=== PATIENT | female | born 1940 | race Caucasian/White ===

== ENCOUNTER 2019-10-23 08:55 | Day surgery (SDC) | payer OTHER ==
[2019-10-19 09:19] LABS: Absolute Lymphocytes (CBC) 0.9 K/uL (0.7-4.9); Basophils % 1.1 % (0-1.3); Hematocrit 39.8 % (36.0-45.0); Lymphocytes % 24.2 % (15.3-44.8); MPV 7.9 fL (7.6-11.3); RBC Red Blood Cell Count 4.42 M/uL (3.86-4.86)
--- NOTE | 2019-10-19 09:39 | RAD REPORT ---
EXAM DESCRIPTION: Julieta Benson And Berto (2 Views)10/19/2019 9:24 am CLINICAL HISTORY: Preop for hip surgery COMPARISON: 2016 FINDINGS: Lungs are mildly hyperaerated The lungs appear clear of acute infiltrate. The heart is normal size The aorta is tortuous/ectatic IMPRESSION: No acute abnormalities displayed
[2019-10-23] MEDS ORDERED: CEFAZOLIN/SWI 1gm 1 GM/10 ML SYR ONE (09:48)
[2019-10-23] MEDS ORDERED: NA CHLORIDE 0.9% 1,000 ML ONE (09:48)
--- OUTSIDE RECORDS SUMMARY | 2019-10-23 10:06 | XMS REPORT | Continuity of Care Document ---
:1940 Author Organization [facility] t Address [facility] Seth Moura [address] [place] [id number] Care Team Providers Name Role Phone Unavailable Unavailable Unavailable Problems Condition Condition Condition Status Onset Resolution Last Treating Co mments Source Name Details Category Date Date Treatment Clinician Date Nicotine Nicotine Problem [facility] Degenerati Degenerati Problem Active [facility] ve joint [facility] disease disease [facility] Allergic Allergic Problem Active [facility] rhinitis, rhinitis, [facility] - seasonal seasonal Memori a l [facility] ent Clin[facility] Hyperlipid Hyperlipid Problem Active [facility] emia emia [facility] Varicose Varicose Problem Active [facility] veins [facility] Insomnia Insomnia Problem [facility] Degenerati Degenerati Problem Active [facility] on of on of [facility] - lumbar or lumbar or Jose soren lumbosacra lumbosacra l l l Outpati interverte interverte en t bral disc bral disc Clin ics Chronic Chronic Problem Active [facility] back pain back pain [facility] - [facility] COPD COPD Problem Active [facility] (chronic (chronic [facility] - obstructiv obstructiv Me moria e e l pulmonary pulmonary Outp ati disease) disease) ent Clinics Hypothyroi Hypothyroi Problem Active [facility] dism dism [facility] Rosacea Rosacea Problem Active [facility] Diabetes Diabetes Problem Active [facility] type 2, type 2, [facility] - controlled controlled Me moria l Outpati ent Clinics Fibromyalg Fibromyalg Problem Active [facility] ia ia [facility] Renal Renal Problem Active [facility] insufficie insufficie Barbara kes - ncy ncy Memoria syndrome syndrome l Outpati ent Clinics Unspecifie Unspecifie Problem Active [facility] d hearing d hearing Luke s - loss loss Memoria l [facility] ent Clinics Spinal Spinal Problem Active [facility] stenosis, stenosis, [facility] Osteoarthr Osteoarthr Problem Active [facility] itis of itis of [facility] - multiple multiple Memori a joints joints l [facility] ent Clinics H/O: CVA H/O: CVA Problem Active [facility] (cerebrova (cerebrova Barbara kes - scular scular Memoria accident) accident) l [facility] Postsurgic Postsurgic Problem Active [facility] al al [facility] - menopause menopause Jose soren l [facility] ent Clinics Urinary Urinary Problem Active [facility] incontinen incontinen Barbara kes - ce, ce, Memoria unspecifie unspecifie l d type d type [facility] Clin[facility] Mixed Mixed Problem Active [facility] incontinen incontinen Babrara kes - ce urge ce urge Memoria and stress and stress l [facility] ent Clinics Type 2 Type [address] [facility] diabetes diabetes [facility] - mellitus mellitus Memori a with other with other l diabetic diabetic Outpat i kidney kidney ent complicati complicati Cl inics on on Stage 3 Stage [address] [facility] chronic chronic [facility] - kidney kidney Memoria disease disease l [facility] ent Clinics Type 2 Type [address] [facility] diabetes diabetes [facility] - mellitus mellitus Memori a with with l diabetic diabetic Outpat i chronic chronic ent kidney kidney Clinics disease disease Allergic Allergic Problem Active [facility] rhinitis, rhinitis, Luke s - unspecifie unspecifie Me moria d d l [facility] ent Clinics Non-season Non-season Problem Active [facility] al al [facility] - allergic allergic Memori a rhinitis, rhinitis, l unspecifie unspecifie Ou tpati d trigger d trigger ent Clinics Allergies, Adverse Reactions, Alerts Allergy Allergy Status Severity Reaction(s) Onset Inactive Treating Comm ents Source Name Type Date Date Clinician sulfa Adverse Active Info Not [facility] Reaction Available [facility] - [facility]oria [facility] codeine Adverse Active Info Not [facility] Reaction Available kes - Memoria [facility] ent [facility] Aspir-81 Adverse Active Info Not [facility] Reaction Available [facility] ent Clinics Medications Ordered Filled Start Stop Current Ordering Indication Dosage Frequency Signature Comments Components Source Medication Medication Date Date Medication? Clinician (SIG) Name Name Moris Subramanian 2017-03 Yes Arian as [facility] Smart View Smart View 1-23 [facility] directed [facility] - test strips test strips 00:00: Memoria 00 l [facility] Moris Subramanian Yes Arian as [facility] SmartView SmartView 5-25 [facility] directed [facility] - Control Control 00:00: Memoria 00 l [facility] Clinics [facility] Yes Arian 1 tablet [facility] Allergy Allergy [facility] Flonase Flonase Yes Arian [address] [facility] each [facility] - nostril Memoria l [facility] Lyrica Lyrica Yes Arian [address] [facility] Crestor Crestor Yes Arian [address] [facility] Singulair Singulair Yes Arian [address] [facility] [place] in the [facility] - evening Memoria l [facility] Lisinopril Lisinopril Yes Arian [address] [facility] Levothyroxi Levothyroxi Yes Arian [address] [facility] ne Sodium ne Sodium [place] on an Femi es - empty Memoria stomach in l the Outpati morning ent Clinics Breo Breo Yes Arian TAKE [address] [facility] Ellipta Ellipta [place] PUFF BY [facility] - MOUTH Memoria EVERY DAY l [facility] Lisinopril Lisinopril Yes Arian [address] [facility] Aspirin 81 Aspirin 81 Yes Arian [address] [facility] Bactroban Bactroban Yes Arian [address] [facility] Mrain applicatio [facility]ukes - n to Memoria affected l area [facility] ProAir HFA ProAir HFA Yes Arian [address] [facility] needed [facility] - Memoria l [facility] Rosuvastati Rosuvastati Yes Arian TAKE [address] [facility] n Calcium n Calcium [place] TABLET BY [facility] - MOUTH Memoria EVERY DAY l [facility]ics Zetonna Zetonna Yes Arian [address] [facility] each [facility] - nostril Memoria l [facility] Accu-Chek Accu-Chek Yes Arian TEST [address] FastClix FastClix [place] TIMES A Femi es - Lancets Lancets DAY Memoria l [facility] Ventolin Ventolin Yes Arian TAKE [address] [facility] [facility] HFA HFA [place] PUFFS BY [facility] - MOUTH 4 Memoria TIMES A l DAY 90 [facility]ics Mupirocin Mupirocin Yes Arian APPLY TO [facility] Calcium Calcium [place] AFFECTED Luke s - AREA 3 Memoria TIMES A l DAY [facility] Metformin Metformin Yes Arian take [address] [facility] HCl HCl [facility] l [facility] Tramadol Tramadol Yes Arian [address] HCl HCl [place] as needed [facility] ent Clinics Procedures This patient has no known procedures. Encounters Start End Encounter Admission Attending Care Care Encounter Source Date/Time Date/Time Type Type Clinicians Facility Department ID 2019-10-08 2019-10-08 [facility] [id number] [facility] 17:59:00 17:59:00 t [facility] Outpati ent Clinics 2019-10-08 2019-10-08 [facility] [id number] [facility] 14[facility]15:00 14:15:00 t [facility] Medicine Outpati ent Clinics 2019-08-31 2019-08-31 [facility] [id number] [facility] 13:00:00 13:00:00 t Specialty/U Barbara kes - Specialty rology [facility] a /Urology Clinic l Clinic Outpati ent Clinics 2019-07-09 2019-07-09 [facility] [id number] 14:15:00 14:15:00 t [facility] Outpati ent Clinics 2019-07-02 2019-07-02 [facility] [id number] 13:09:00 13:09:00 t [facility] Outpati ent Clinics 2019-06-29 2019-06-29 [facility] [id number] [address] 09:32:00 09:32:00 t [facility] Medicine Outpati ent Clinics 2019-06-13 2019-06-13 [facility] [id number] [address] 09:02:00 09:02:00 t [facility] Medicine Outpati ent Clinics 2019-05-17 2019-05-17 [facility] [id number] [address] 13:15:00 13:15:00 t [facility] Medicine Outpati ent Clinics 2019-04-06 2019-04-06 [facility] [id number] [facility] 10:30:00 10:30:00 t [facility] Medicine Outpati ent Clinics 2019-03-30 2019-03-30 [facility] [id number] 08:13:00 08:13:00 t [facility] Medicine Outpati ent Clinics 2019-03-01 2019-03-01 [facility] [id number] [facility] 13:00:00 13:00:00 t Specialty/U Barbara kes - Specialty rology Memori a /Urology Clinic l Clinic Outpati ent Clinics 2019-01-03 2019-01-03 [facility] [id number] [facility] 14:15:00 14:15:00 t [facility] Medicine Outpati ent Clinics 2018-11-28 2018-11-28 [facility] [id number] [address] 14:30:00 14:30:00 t Specialty/U Barbara kes - Specialty rology Memori a /Urology Clinic l Clinic Outpati ent Clinics 2018-11-22 2018-11-22 [facility] [id number] 12:23:00 12:23:00 t [employer] Medicine Outpati ent Clinics 2018-11-09 2018-11-09 [facility] [id number] [facility] 14:21:00 14:21:00 t Specialty/U Barbara kes - Specialty rology Memori a /Urology Clinic l Clinic Outpati ent Clinics 2018-10-13 2018-10-13 [facility] [id number] 13:30:00 13:30:00 t Specialty/U Barbara kes - Specialty rology Memori a /Urology Clinic l Clinic Outpati ent Clinics 2018-10-03 2018-10-03 [facility] [id number] 14:00:00 14:00:00 t [employer] [facility] Outpati ent Clinics 2018-09-08 2018-09-08 [facility] [id number] 14:45:00 14:45:00 t Specialty/U Barbara kes - Specialty rology Memori a /Urology Clinic l Clinic Outpati ent Clinics 2018-09-04 2018-09-04 [facility] [id number] 15:07:00 15:07:00 t [employer] [facility] Outpati ent Clinics 2018-09-04 2018-09-04 [facility] [id number] [address] 09:45:00 09:45:00 t Specialty/U Barbara kes - Specialty rology Memori a /Urology Clinic l Clinic Outpati ent Clinics 2018-07-13 2018-07-13 [facility] [id number] [facility] 13:45:00 13:45:00 t Specialty/U Barbara kes - Specialty rology Memori a /Urology Clinic l Clinic Outpati ent Clinics 2018-07-04 2018-07-04 [facility] [id number] [facility] 13:45:00 13:45:00 t [employer] - Drive [facility] Medicine Outpati ent Clinics 2018-04-06 2018-04-06 [facility] [id number] 13:45:00 13:45:00 t [employer] [facility] Outpati ent Clinics 2018-01-04 2018-01-04 [facility] [id number] [facility] 16:14:00 16:14:00 t [employer] [facility] Outpati ent Clinics 2018-01-04 2018-01-04 [facility] [id number] 14:30:00 14:30:00 t [employer] [facility] Medicine Outpati ent Clinics 2017-09-12 2017-09-12 [facility] [id number] 14:15:00 14:15:00 t [employer] [facility] Medicine Outpati ent Clinics 2017-08-12 2017-08-12 [facility] [id number] 16:01:00 16:01:00 t [employer] [facility] Medicine Outpati ent Clinics 2017-07-28 2017-07-28 [facility] [id number] 10:26:00 10:26:00 t [employer] [facility] Medicine Outpati ent Clinics 2017-06-15 2017-06-15 [facility] [id number] 13:15:00 13:15:00 t [facility] Medicine Outpati ent Clinics Results This patient has no known results.
--- OUTSIDE RECORDS SUMMARY | 2019-10-23 10:06 | XMS REPORT ---
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 Active Problem H/O: CVA (cerebrovascular accident) Z86.73 Active Problem Allergic rhinitis, seasonal J30.2 Active Problem Renal insufficiency syndrome N28.9 Active Problem Unspecified hearing loss H91.90 Act gavin Problem Varicose veins I86.8 Active Problem 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 Activ e Problem Osteoarthritis of multiple joints M15.9 Active Problem Nicotine dependence F17.200 Active Problem Non-seasonal allergic rhinitis, J30.89 Active unspecified trigger Problem Type 2 diabetes mellitus with E11.22 Active diabetic chronic kidney disease Problem 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 Ac tive lumbosacral intervertebral disc Problem Chronic back pain M54.9 Active Problem Allergic rhinitis, unspecified J30.9 Active Problem Degenerative joint disease M19.90 A ctive Problem Mixed incontinence urge and stress N39.46 Active Problem Urinary incontinence, unspecified R32 Active type Problem Stage 3 chronic kidney disease N18.3 Active Problem Type 2 diabetes mellitus with other E11.29 Active diabetic kidney complication Problem Fibromyalgia M79.7 Active Problem Insomnia G47.00 Active Problem Diabetes type 2, controlled E11.9 Active Problem Rosacea L71.9 Active Problem Hyperlipidemia E78.5 Active Problem Spinal stenosis, other region M48.00 Active Problem Hypothyroidism E03.9 Active Problem COPD (chronic obstructive pulmonary J44.9 Active disease) Medications Medication Code Code Instructions Start End Status Dosage System Date Date ProAir HFA [facility] 45346081167 108 (90 Base) Active 2 p uffs as MCG/ACT needed Inhalation every 6 hrs Zetonna [facility] 17095757873 37 MCG/ACT Active 1 puff in Nasally Once a each nost ril day Levothyroxine ND 88717432543 50 MCG Orally Active 1 tablet on Sodium Once a day an empty stomach in the morning Flonase ND 13210685676 50 MCG/ACT Active 1 spray i n Nasally Once a each nost ril day Accu-Chek Smart [facility] 20110737429 strip Feb 10, Active as d irected View test strips subcutaneous 2018 twice daily Ventolin HFA [facility] 60582633741 108 (90 Base) Active T RADHA 2 PUFFS MCG/ACT BY MOUTH 4 TIMES A DAY 90 Lyrica ND 87465062310 75 MG Orally Active 1 capsu le Twice a day Crestor ND 80904167824 10 MG Orally Active 1 table t Once a day Lyrica ND 21308338193 75 MG Orally Active 1 capsu le Twice a day Mupirocin [facility] 65040392498 2 % Active APPLY TO Calcium AFFECTED AREA 3 TIMES A DAY Aspirin 81 ND 16814864349 81 MG Orally Active 1 ta blet Once a day Breo Ellipta ND 96502138491 100-25 MCG/INH Active TAKE 1 PUFF BY MOUTH EVERY DAY Lisinopril ND 35350065036 2.5 MG Orally Active 1 t ablet Once a day Accu-Chek [facility] 21223911886 - finger stick Active LING T 3 TIMES FastClix Lancets test three time A DAY a day Bactroban [facility] 04217616415 2 % Externally Active 1 a pplication Three times a to affecte d day area Lisinopril ND 31420620037 2.5 MG Orally Active 1 t ablet Once a day Zyrtec Allergy ND 42183597476 10 MG Orally Active 1 tablet Once a day Rosuvastatin ND 84290796939 10 MG Active TAKE 1 TABLET Calcium BY MOUTH EVERY DAY Metformin HCl ND 29995332421 500 MG Active TAKE 1 TABLET BY MOUTH EVERY DAY Accu-Chek [facility] 02915123366 - In Vitro August 12, Active as dire cted SmartView 2018 Control Singulair ND 88944447995 10 MG Orally Active 1 tab let in Once a day the evening Levothyroxine ND 52146014918 50 MCG Active TAKE 1 TABLET Sodium BY MOUTH EVERY DAY ON EMPTY STOMACH IN THE MORNING Results No Known Results Summary Purpose eClinicalWorks Submission
--- OUTSIDE RECORDS SUMMARY | 2019-10-23 10:06 | XMS REPORT ---
:1940 Author Organization eClinicalWorks Care Team Providers Name Role Phone Tomas Arian Provider Role Unavailable Allergies, Adverse Reactions, Alerts Substance Reaction Event Type sulfa Info Not Available Drug Allergy codeine Info Not Available Drug Allergy Aspir-81 Info Not Available Drug Allergy Problems Problem Type Condition Code Onset Dates Condition Statu s Assessment Chronic back pain M54.9 Active Assessment Insomnia G47.00 Active Assessment COPD (chronic obstructive pulmonary J44.9 Active disease) Assessment Stage 3 chronic kidney disease N18.3 Active Assessment History of fall Z91.81 Active Assessment Proteinuria, unspecified R80.9 Act gavin Assessment Left hip pain M25.552 Active Assessment Hypothyroidism E03.9 Active Assessment 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 Ac tive lumbosacral intervertebral disc Assessment Type 2 diabetes mellitus with other E11.29 Active diabetic kidney complication Problem H/O: CVA (cerebrovascular accident) Z86.73 Active [...] disc Problem Chronic back pain M54.9 Active Assessment Spinal stenosis, other region M48.00 Active Problem Allergic rhinitis, unspecified J30.9 Active Problem Degenerative joint disease M19.90 A ctive Assessment Allergic rhinitis, seasonal J30.2 Active Problem Mixed incontinence urge and stress N39.46 Active Assessment H/O: CVA (cerebrovascular accident) Z86.73 Active Problem Urinary incontinence, unspecified R32 Active type Assessment Fibromyalgia M79.7 Active Problem Stage 3 chronic kidney disease N18.3 Active Assessment 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 Activ e Problem Type 2 diabetes mellitus with other E11.29 Active diabetic kidney complication Assessment Degenerative joint disease M19.90 A ctive Problem Fibromyalgia M79.7 Active Assessment Hyperlipidemia E78.5 Active Problem Insomnia G47.00 Active Assessment Urinary incontinence, unspecified R32 Active type Problem Diabetes type 2, controlled E11.9 Active Assessment Nicotine dependence F17.200 Active Problem Rosacea L71.9 Active Assessment Osteoarthritis of multiple joints M15.9 Active Problem Hyperlipidemia E78.5 Active Assessment Varicose veins I86.8 Active Problem Spinal stenosis, other region M48.00 Active Problem Hypothyroidism E03.9 Active Problem COPD (chronic obstructive pulmonary J44.9 Active disease) Medications Medication Code Code Instructions Start End Status Dosage System Date Date Zyrtec Allergy [facility] 41104650185 10 MG Orally Active 1 tablet Once a day Breo Ellipta [facility] 09672349757 100-25 MCG/INH Active TAKE 1 PUFF BY MOUTH EVERY DAY ProAir HFA [facility] 24516178963 108 (90 Base) Active 2 p uffs as MCG/ACT needed Inhalation every 6 hrs Bactroban ND 47405591464 2 % Externally Active 1 a pplication Three times a to affecte d day area Levothyroxine ND 67355237972 50 MCG Orally Active 1 tablet on Sodium Once a day an empty stomach in the morning Lyrica ND 03620663337 75 MG Orally Active 1 capsu le Twice a day Lisinopril ND 43997460548 2.5 MG Orally Active 1 t ablet Once a day Zetonna [facility] 82678756547 37 MCG/ACT Active 1 puff in Nasally Once a each nost Accu-Chek [facility] 81493887550 - In Vitro August 12, Active as dire cted SmartView 2018 Control Lisinopril ND 26459058007 2.5 MG Orally Active 1 t ablet Once a day Accu-Chek Smart [facility] 34973165725 strip Feb 10, Active as d irected View test strips subcutaneous 2018 twice daily Breo Ellipta [facility] 01075084063 100-25 MCG/INH Active TAKE 1 PUFF BY MOUTH EVERY DAY Mupirocin ND 91359584663 2 % Active APPLY TO Calcium AFFECTED AREA 3 TIMES A DAY Accu-Chek [facility] 49512305296 - finger stick Active LING T 3 TIMES FastClix Lancets test three time A DAY a day Rosuvastatin [facility] 45957346374 10 MG Active TAKE 1 TABLET Calcium BY MOUTH EVERY DAY Flonase [facility] 18885868379 50 MCG/ACT Active 1 spray i n Nasally Once a each nost ril day Crestor [facility] 58437888873 10 MG Orally Active 1 table t Once a day Metformin HCl [facility] 95875919542 500 MG po BID Active take 1 tab Tramadol HCl [facility] 40529460327 50 MG Orally Active 1 tablet as ONCE A DAY PRN needed PAIN Aspirin 81 [facility] 47627762802 81 MG Orally Active 1 ta blet Once a day Singulair [facility] 55678742213 10 MG Orally Active 1 tab let in Once a day the evening Lyrica [facility] 73522369339 75 MG Orally Active 1 capsu le Twice a day Ventolin HFA [facility] 03433550029 108 (90 Base) Active T RADHA 2 PUFFS MCG/ACT BY MOUTH 4 TIMES A DAY 90 Results Name Result Date Reference Range Unit Abnormali ty Flag Hip Bilateral With Pelvis Summary Purpose eClinicalWorks Submission
--- OUTSIDE RECORDS SUMMARY | 2019-10-23 10:07 | XMS REPORT ---
:1940 Author Organization eClinicalWorks Care Team Providers Name Role Phone Arian Marin Provider Role Unavailable Allergies No Known Allergies Problems Problem Type Condition Code Onset Dates Condition Statu s Problem H/O: CVA (cerebrovascular accident) Z86.73 Active [...] (chronic obstructive pulmonary J44.9 Active disease) Medications No Known Medications Results No Known Results Summary Purpose eClinicalWorks Submission
[2019-10-23] MEDS ORDERED: MIDAZOLAM HCL 2 MG/2 ML INJ ONE (10:43)
[2019-10-23] MEDS ORDERED: FENTANYL CITR 100 MCG/2 ML ONE (10:44)
[2019-10-23] MEDS ORDERED: propofoL 200 MG/20 ML VIAL IV ONE (10:44)
[2019-10-23] MEDS ORDERED: dexAMETHasone 10 MG/ML VIAL ONE (10:44)
[2019-10-23] MEDS ORDERED: LIDOCAINE 2% MPF 5 ML VIAL ONE (10:44)
[2019-10-23] MEDS ORDERED: KETOROLAC 30 MG/ML INJ ONE (11:20)
[2019-10-23] MEDS ORDERED: MORPHINE 4 MG/ML SYR ONE (12:04)
[2019-10-23] MEDS ORDERED: HYDROCODONE/APAP 7.5/325 MG TAB ONE (12:44)
[2019-10-23 13:47] VITALS: TEMP 97.6
[2019-10-23 13:49] VITALS: BP 108/65; O2SAT 100
--- NOTE | 2019-10-23 20:56 | OP ---
Date of Procedure: 10/23/2019 Surgeon: Gideon Carl MD Inspector [employer] Metal Parts: NANCI Mckeon Preoperative Diagnosis: Left hip hematoma, symptomatic. Postoperative Diagnosis: Left hip hematoma, symptomatic. Procedure: Incision and drainage of left hip hematoma. Estimated Blood Loss: Minimal. Specimens: Culture and sensitivity. Findings: As above. Anesthesia: General. Complications: None. Drains: 0.25-inch Edd. The patient tolerated the procedure in stable condition, taken to Recovery in good general condition. Procedure In Detail: The patient was brought to the OR and placed in supine position. General anest hesia was begun. The patient was placed in the right lateral position, prepped and draped in usual s terile fashion. Marcaine 0.5% was infiltrated locally. A 15-blade was used to make a 4 cm incision. Subcutaneous tissue was divided. Serous cloudy fluid and old blood encountered. Cultures done. L oculation broken up. Entire hematoma evacuated. Then, deep to the subcutaneous tissue, a [place] 0. 25 inch placed and secured with 3-0 nylon and 3-0 chromic used to approximate the subcutaneous tissue and close skin. Sterile dressing was applied. The patient was awakened and taken to Recovery in go od general condition. Discharge Note: The patient will go to Day Surgery and home when stable. Disposition: Home. Condition: Stable. Discharge Instructions: Resume home medications and diet. Activity as tolerated. No heavy lifting. Remove outer dressing in 2 days. Sponge bath and dry gauze wound daily and p.r.n. Follow up in my office in 1 week. Call for appointment. Tylenol No. 3 one tablet p.o. q.4 p.r.n. pain, Keflex 500 mg p.o. q.6. /MODL Voice ID: [id number] Report ID: [id number]
== END 2019-10-23 13:40 | disposition home or self-care (01) ==
LOC: OR 08:55
PROVIDERS: ATTEND Surgery
PROC: 0J9M0ZX Drainage of Left Upper Leg Subcutaneous Tissue and Fascia, Open Approach, Diagnostic (ICD-10-PCS; principal; 2019-10-23 11:00)
DX: S70.02XA Contusion of left hip, initial encounter (principal); W19.XXXA Unspecified fall, initial encounter; M79.89 Other specified soft tissue disorders; L90.5 Scar conditions and fibrosis of skin; Z11.59 Encounter for screening for other viral diseases; E11.9 Type 2 diabetes mellitus without complications; J44.9 Chronic obstructive pulmonary disease, unspecified; F17.210 Nicotine dependence, cigarettes, uncomplicated; Z79.82 Long term (current) use of aspirin; Z79.84 Long term (current) use of oral hypoglycemic drugs; Z79.899 Other long term (current) drug therapy
CPT/HCPCS: 93005; 87070; 85025; 80048; 36415; 87205; 82947 ×2; 88304; 87075; 71046; 10140; U0002; J2704; J2250; J3010; J1100; J0690; J7030; 88305

== ENCOUNTER 2021-06-01 07:18 | Day surgery (SDC) | payer OTHER ==
[2021-05-28 14:34] LABS: Absolute Lymphocytes (CBC) 0.9 K/uL (0.7-4.9); Hematocrit 34.8 % (36.0-45.0); Lymphocytes % 19.1 % (15.3-44.8); MPV 6.9 fL (7.6-11.3)
[2021-05-28 14:47] LABS: Potassium 4.2 mmol/L (3.5-5.1)
[2021-06-01] MEDS ORDERED: NA CHLORIDE 0.9% 50 ML ONE (07:41)
[2021-06-01] MEDS ORDERED: CEFAZOLIN SODIUM 1 GM/VIAL ONE (07:41)
[2021-06-01] MEDS ORDERED: NA CHLORIDE 0.9% 1,000 ML ONE ×2 (07:41→09:47)
[2021-06-01] MEDS ORDERED: FENTANYL CITR 100 MCG/2 ML ONE (08:06)
[2021-06-01] MEDS ORDERED: ONDANSETRON 4 MG/2 ML VIAL ONE (08:07)
[2021-06-01] MEDS ORDERED: propofoL 200 MG/20 ML VIAL IV ONE (08:07)
[2021-06-01] MEDS ORDERED: dexAMETHasone 10 MG/ML VIAL ONE (08:07)
[2021-06-01] MEDS ORDERED: LIDOCAINE 2% MPF 5 ML VIAL ONE (08:07)
[2021-06-01] MEDS ORDERED: MIDAZOLAM HCL 2 MG/2 ML INJ ONE (08:07)
[2021-06-01] MEDS ORDERED: EPHEDRINE SULF 50 MG/ML VIAL ONE (08:44)
[2021-06-01] MEDS ORDERED: ROCURONIUM 50 MG/5 ML VIAL IV ONE (08:59)
[2021-06-01] MEDS ORDERED: Mastisol Adhesive Liq ONE (09:16)
[2021-06-01] MEDS ORDERED: ESMOLOL HCL 10 ML IV ONE (09:19)
[2021-06-01] MEDS ORDERED: KETOROLAC 30 MG/ML INJ ONE (09:28)
--- NOTE | 2021-06-01 09:41 | P.OP ---
Sugar Controller: Maite CHRISTINE Preoperative diagnosis: Right inguinal hernia Postoperative diagnosis: Same Primary procedure: Repair right inguinal hernia Anesthesia: General Estimated blood loss: Minimal Specimen: Round ligament Findings: As above, direct right inguinal hernia Operative Technique: Patient brought to the OR and placed in the supine position. General anesthesia begun and patient prepped draped in the usual sterile fashion. Marc[place] 0.5% infiltrated traded in a field block fashion in the right groin. 15 blade used to make a 4 cm oblique incision between the pubic tubercle and the anterior iliac superior spine. Subcutaneous tissue divided and Roc's fascia identified and divided. Aponeurosis of the external abdominal oblique muscle was identified and mobilized inferiorly. External ring identified and opened. Round ligament identified and mobilized. A direct right inguinal hernia identified. Right round ligament was excised and tied with 2-0 chromic ties. The direct hernia was reduced into the peritoneal cavity. The floor was reconstructed by joining the conjoined tendon to the shelving edge starting at the pubic tubercle and creating a new internal ring. Then Marlex mesh plug placed in the internal ring and secured with VersaTack stapler. Onlay mesh placed on the inguinal floor and secured to the medially to the pubic tubercle, superiorly to the conjoined tendon, inferiorly to the shelving edge and laterally to the edge of the internal ring. Then aponeurosis reapproximated using 2-0 Prolene suture. 3-0 chromic used to reapproximate Roc's fascia and closed skin. Sterile dressing applied and patient awakened taken to recovery in good general condition. CC: Dr. Arian Marin Complications: None Transferred to: Recovery Room Condition: Good
[2021-06-01] MEDS ORDERED: HYDROCODONE/APAP 7.5/325 MG TAB PO PRN (09:46)
[2021-06-01 09:59] VITALS: TEMP 97.5
[2021-06-01] MEDS ORDERED: HYDROCODONE/APAP 7.5/325 MG TAB ONE (10:28)
[2021-06-01 10:37] VITALS: BP 97/62; O2SAT 97
== END 2021-06-01 11:00 | disposition home or self-care (01) ==
LOC: OR 07:18
PROVIDERS: ATTEND Surgery
PROC: 0YU50JZ Supplement Right Inguinal Region with Synthetic Substitute, Open Approach (ICD-10-PCS; principal; 2021-06-01 08:30)
DX: K40.90 Unilateral inguinal hernia, without obstruction or gangrene, not specified as recurrent (principal); Z20.822 Contact with and (suspected) exposure to COVID-19
CPT/HCPCS: 85025; 80048; 36415; 82947 ×2; 88302; 49505; U0003; J2704; J3010; J1100; J7030 ×2; J2405; J0690; J2250

== ENCOUNTER 2022-09-07 11:30 | Observation (INO) | payer OTHER ==
--- OUTSIDE RECORDS SUMMARY | 2022-09-07 11:44 | XMS REPORT | Continuity of Care Document ---
:1940 Author Organization [facility] t Address [address] [facility] [address] [place] [address] Care Team Providers Name Role Phone Arian Marin Attending Clinician Unavailable Payers Payer Name Policy Type Policy Number Effective Date Expiration Date [employer] 53 [id number] 2017 [facility] 00:00:00 [facility] MEDICARE MB [id number] 2005 [facility] NOVITAS 00:00:00 [facility] Problems Condition Condition Condition Status Onset Resolution Last Treating Co mments Source Name Details Category Date Date Treatment Clinician Date [id number] Depression Problem Com mon , major, [facility] single - [facility] episode, [facility] [id number] Cigarette Problem Comm on nicotine Spirit dependence - [facility] with nicotinei [facility] nduced Medical disorder Center [id number] Pain in Problem Comm on right hip [facility] [id number] Pain in Problem Comm on left hip [facility] 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 [facility] History of H/O: CVA Problem Com mon cerebrovas (cerebrova Sp aurora cular scular - [facility] accident accident) [facility] Medical deficits Center [id number] Unspecifie Problem Com mon d hearing Spirit loss [facility] 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 [facility] Seasonal Allergic Problem Commo n allergic rhinitis, Spiri t rhinitis seasonal - [facility] Chronic Chronic Problem Common back pain back pain Spir it - [facility] 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 - [facility] [id number] Mixed Problem Common incontinen Spirit ce urge - [facility] and stress [facility] [id number] Urinary Problem Commo n incontinen Spirit ce, - [facility] unspecifie [facility] [id number] Spinal Problem Common stenosis, Spirit other - [facility] region [facility] Insomnia Insomnia Problem Commo n Spirit CHI [facility] Fibromyalg Fibromyalg Problem C ommon ia ia [facility] COPD - COPD Problem Common Chronic (chronic Spirit obstructiv obstructiv - [facility] e e pulmonary [facility] s disease disease) [facility] [place] Hypothyroi Hypothyroi Problem C ommon dism dism [facility] Nicotine Nicotine Problem Commo n dependence dependence Sp aurora [facility] Hyperlipid Hyperlipid Problem C ommon emia emia [facility] Postsurgic Postsurgic Problem C ommon al al Spirit menopause menopause - CH I [facility] Osteoarthr Osteoarthr Problem C ommon itis of itis of Spirit multiple multiple - [facility] joints joints [facility] [id number] Type 2 Problem Common diabetes Spirit mellitus - [facility] with other [facility] kidney Medical complicati Center on [id number] +5th digit Problem Co mmon eff Spirit 12/20/19*St - [facility] age 3 [facility] kidney Medical disease Center [id number] Type 2 Problem Commo n 05 diabetes Spirit mellitus - [facility] with diabetic [facility] chronic Medical kidney Center disease Type II Diabetes Problem Common diabetes type 2, Spirit mellitus controlled - [facility] I well [facility] 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 or - [facility] interverte lumbosacra bra disc [facility] interverte [facility] disc [place] Rosacea Rosacea Problem [facility] [id number] Non-season Problem Com mon al [facility] allergic - [facility], [id number] Stage 3a Problem Comm on chronic [facility] kidney - [facility] disease [facility] [id number] Memory Problem Common changes [facility] Allergies, Adverse Reactions, Alerts Allergy Allergy Status Severity Reaction(s) Onset Inactive Treating Comm ents Source Name Type Date Date Clinician 6129 Drug Active Unknown Common allergy [facility] Codeine Codeine Active Unknown Common [facility] Social History Social Habit Start Date Stop Date Quantity Comments Source History of Tobacco Current Smoker Co mmon [facility] - [facility] Use [facility] Sex Assigned At Com mon [facility] Smoking Status Start Date Stop Date Source Current Smoker 2022-08-30 00:00:00 [facility] Medications Ordered Filled Start Stop Current Ordering Indication Dosage Frequency Signature Comments Components Source Medication Medication Date Date Medication? Clinician (SIG) Name Name traMADol traMADol No 1{table traMADol HCl 50 MG HCl 50 MG 6-12 t_as_ne HCl 50 MG 00:00: eded} 00 Lyrica 75 Lyrica 75 No 1{capsu BID Lyrica 75 MG MG 6-12 le} MG 00:00: 00 traMADol traMADol No 1{table traMADol HCl 50 MG HCl 50 MG 2-16 t_as_ne HCl 50 MG 00:00: eded} traMADol traMADol 2021-03 No 1{table traMADol HCl 50 MG HCl 50 MG 1-22 t_as_ne HCl 50 MG 00:00: eded} 00 traMADol traMADol 2021-03 No 1{table traMADol HCl 50 MG HCl 50 MG 1-22 t_as_ne HCl 50 MG 00:00: eded} traMADol traMADol 2021-03 No 1{table traMADol HCl 50 MG HCl 50 MG 1-22 t_as_ne HCl 50 MG 00:00: eded} 00 traMADol traMADol 2021-03 No 1{table traMADol HCl 50 MG HCl 50 MG 1-22 t_as_ne HCl 50 MG 00:00: eded} traMADol traMADol 2021-03 No 1{table traMADol HCl 50 MG HCl 50 MG 0-27 t_as_ne HCl 50 MG 00:00: eded} 00 traMADol traMADol 2021-03 No 1{table traMADol HCl 50 MG HCl 50 MG 0-27 t_as_ne HCl 50 MG 00:00: eded} 00 traMADol traMADol 2-0 No 1{table traMADol HCl 50 MG HCl 50 MG 8-22 t_as_ne HCl 50 MG 00:00: eded} 00 DULoxetine DULoxetine 2-0 No 1{capsu QD DULoxetine HCl 30 MG HCl 30 MG 8-22 le} HCl 30 MG 00:00: 00 traMADol traMADol 2-0 No 1{table traMADol HCl 50 MG HCl 50 MG 8-22 t_as_ne HCl 50 MG 00:00: eded} 00 DULoxetine DULoxetine 2-0 No 1{capsu QD DULoxetine HCl 30 MG HCl 30 MG 8-22 le} HCl 30 MG 00:00: 00 traMADol traMADol 2-0 No 1{table traMADol HCl 50 MG HCl 50 MG 8-22 t_as_ne HCl 50 MG 00:00: eded} 00 traMADol traMADol 2-0 No 1{table traMADol HCl 50 MG HCl 50 MG 8-22 t_as_ne HCl 50 MG 00:00: eded} 00 traMADol traMADol 2-0 No 1{table traMADol HCl 50 MG HCl 50 MG 8-09 t_as_ne HCl 50 MG 00:00: eded} 00 traMADol traMADol 2-0 No traMADol HCl 50 MG HCl 50 MG 5-03 HCl 50 MG 00:00: 00 traMADol traMADol 2-0 No traMADol HCl 50 MG HCl 50 MG 5-03 HCl 50 MG 00:00: 00 traMADol traMADol 2-0 No traMADol HCl 50 MG HCl 50 MG 5-03 HCl 50 MG 00:00: 00 traMADol traMADol 2-0 No traMADol HCl 50 MG HCl 50 MG 5-03 HCl 50 MG 00:00: 00 traMADol traMADol 2-0 No traMADol HCl 50 MG HCl 50 MG 5-03 HCl 50 MG 00:00: 00 traMADol traMADol 2-0 No traMADol HCl 50 MG HCl 50 MG 5-03 HCl 50 MG 00:00: 00 traMADol traMADol 2-0 No traMADol HCl 50 MG HCl 50 MG 5-03 HCl 50 MG 00:00: 00 traMADol traMADol 2-0 No traMADol HCl 50 MG HCl 50 MG 5-03 HCl 50 MG 00:00: 00 traMADol traMADol 2021-0 No traMADol HCl 50 MG HCl 50 MG 5-03 HCl 50 MG 00:00: 00 traMADol traMADol 2021-0 No traMADol HCl 50 MG HCl 50 MG 5-03 HCl 50 MG 00:00: 00 traMADol traMADol 2021-0 No traMADol HCl 50 MG HCl 50 MG 5-03 HCl 50 MG 00:00: 00 traMADol traMADol 2021-0 No traMADol HCl 50 MG HCl 50 MG 5-03 HCl 50 MG 00:00: 00 traMADol traMADol 2021-0 No traMADol HCl 50 MG HCl 50 MG 5-03 HCl 50 MG 00:00: 00 traMADol traMADol 2021-0 No traMADol HCl 50 MG HCl 50 MG 5-03 HCl 50 MG 00:00: 00 traMADol traMADol 2021-0 No traMADol HCl 50 MG HCl 50 MG 5-03 HCl 50 MG 00:00: 00 traMADol traMADol 2021-0 No traMADol HCl 50 MG HCl 50 MG 5-03 HCl 50 MG 00:00: 00 traMADol traMADol 2021-0 No traMADol HCl 50 MG HCl 50 MG 5-03 HCl 50 MG 00:00: 00 traMADol traMADol 2020-1 2021- No traMADol HCl 50 MG HCl 50 MG 2-16 01-15 HCl 50 MG 00:00: 00:00 00 :00 traMADol traMADol 1 2020- No traMADol HCl 50 MG HCl 50 MG 0-21 11-20 HCl 50 MG 00:00: 00:00 00 :00 Accu-Chek Accu-Chek 2017-1 No Accu-Chek Smart View Smart View -23 Smart View test strips test strips 00:00: test strip strip 00 strips strip Accu-Chek Accu-Chek 2017-1 No Accu-Chek Smart View Smart View -23 Smart View test strips test strips 00:00: test strip strip 00 strips strip Accu-Chek Accu-Chek 2017-1 No Accu-Chek Smart View Smart View -23 Smart View test strips test strips 00:00: test strip strip 00 strips strip Accu-Chek Accu-Chek 2017-1 No Accu-Chek Smart View Smart View -23 Smart View test strips test strips 00:00: test strip strip 00 strips strip Accu-Chek Accu-Chek 2018-1 No Accu-Chek Smart View Smart View 23 Smart View test strips test strips 00:00: test strip strip 00 strips strip Accu-Chek Accu-Chek 2018-1 No Accu-Chek Smart View Smart View -23 Smart View test strips test strips 00:00: test strip strip 00 strips strip Accu-Chek Accu-Chek 2018-1 No Accu-Chek Smart View Smart View -23 Smart View test strips test strips 00:00: test strip strip 00 strips strip Accu-Chek Accu-Chek 2018-1 No Accu-Chek Smart View Smart View 23 Smart View test strips test strips 00:00: test strip strip 00 strips strip Accu-Chek Accu-Chek 2018-1 No Accu-Chek Smart View Smart View 23 Smart View test strips test strips 00:00: test strip strip 00 strips strip Accu-Chek Accu-Chek 2018-1 No Accu-Chek Smart View Smart View 23 Smart View test strips test strips 00:00: test strip strip 00 strips strip Accu-Chek Accu-Chek 2018-1 No Accu-Chek Smart View Smart View 23 Smart View test strips test strips 00:00: test strip strip 00 strips strip Accu-Chek Accu-Chek 2018-1 No Accu-Chek Smart View Smart View 23 Smart View test strips test strips 00:00: test strip strip 00 strips strip Accu-Chek Accu-Chek 2018-1 No Accu-Chek Smart View Smart View 23 Smart View test strips test strips 00:00: test strip strip 00 strips strip Accu-Chek Accu-Chek 2018-1 No Accu-Chek Smart View Smart View -23 Smart View test strips test strips 00:00: test strip strip 00 strips strip Accu-Chek Accu-Chek 2018-1 No Accu-Chek Smart View Smart View -23 Smart View test strips test strips 00:00: test strip strip 00 strips strip Accu-Chek Accu-Chek 2018-1 No Accu-Chek Smart View Smart View -23 Smart View test strips test strips 00:00: test strip strip 00 strips strip Accu-Chek Accu-Chek 2018-1 No Accu-Chek Smart View Smart View 1-23 Smart View test strips test strips 00:00: test strip strip 00 strips strip Accu-Chek Accu-Chek 2018-1 No Accu-Chek Smart View Smart View 1-23 Smart View test strips test strips 00:00: test strip strip 00 strips strip Accu-Chek Accu-Chek 2018-1 No Accu-Chek Smart View Smart View 1-23 Smart View test strips test strips 00:00: test strip strip 00 strips strip Accu-Chek Accu-Chek 2018-1 No Accu-Chek Smart View Smart View -23 Smart View test strips test strips 00:00: test strip strip 00 strips strip Accu-Chek Accu-Chek 2018-1 No Accu-Chek Smart View Smart View -23 Smart View test strips test strips 00:00: test strip strip 00 strips strip Accu-Chek Accu-Chek 2018-0 No Accu-Chek SmartView SmartView 5-25 SmartView Control - Control - 00:00: Control - 00 Accu-Chek Accu-Chek 2018-0 No Accu-Chek SmartView SmartView 5-25 SmartView Control - Control - 00:00: Control - 00 Accu-Chek Accu-Chek 2018-0 No Accu-Chek SmartView SmartView 5-25 SmartView Control - Control - 00:00: Control - 00 Accu-Chek Accu-Chek 2018-0 No Accu-Chek SmartView SmartView 5-25 SmartView Control - Control - 00:00: Control - 00 Accu-Chek Accu-Chek 2018-0 No Accu-Chek SmartView SmartView 5-25 SmartView Control - Control - 00:00: Control - 00 Accu-Chek Accu-Chek 2018-0 No Accu-Chek SmartView SmartView 5-25 SmartView Control - Control - 00:00: Control - 00 Accu-Chek Accu-Chek 2018-0 No Accu-Chek SmartView SmartView 5-25 SmartView Control - Control - 00:00: Control - 00 Accu-Chek Accu-Chek 2018-0 No Accu-Chek SmartView SmartView 5-25 SmartView Control - Control - 00:00: Control - 00 Accu-Chek Accu-Chek 2018-0 No Accu-Chek SmartView SmartView 5-25 SmartView Control - Control - 00:00: Control - 00 Accu-Chek Accu-Chek 2018-0 No Accu-Chek SmartView SmartView 5-25 SmartView Control - Control - 00:00: Control - 00 Accu-Chek Accu-Chek 2018-0 No Accu-Chek SmartView SmartView 5-25 SmartView Control - Control - 00:00: Control - 00 Accu-Chek Accu-Chek 2018-0 No Accu-Chek SmartView SmartView 5-25 SmartView Control - Control - 00:00: Control - 00 Accu-Chek Accu-Chek 2018-0 No Accu-Chek SmartView SmartView 5-25 SmartView Control - Control - 00:00: Control - 00 Accu-Chek Accu-Chek 2018-0 No Accu-Chek SmartView SmartView 5-25 SmartView Control - Control - 00:00: Control - 00 Accu-Chek Accu-Chek 2018-0 No Accu-Chek SmartView SmartView 5-25 SmartView Control - Control - 00:00: Control - 00 Accu-Chek Accu-Chek 2018-0 No Accu-Chek SmartView SmartView 5-25 SmartView Control - Control - 00:00: Control - 00 Accu-Chek Accu-Chek 2018-0 No Accu-Chek SmartView SmartView 5-25 SmartView Control - Control - 00:00: Control - 00 Accu-Chek Accu-Chek 2018-0 No Accu-Chek SmartView SmartView 5-25 SmartView Control - Control - 00:00: Control - 00 Accu-Chek Accu-Chek 2018-0 No Accu-Chek SmartView SmartView 5-25 SmartView Control - Control - 00:00: Control - 00 Accu-Chek Accu-Chek 2018-0 No Accu-Chek SmartView SmartView 5-25 SmartView Control - Control - 00:00: Control - 00 Accu-Chek Accu-Chek 2018-0 No Accu-Chek SmartView SmartView 5-25 SmartView Control - Control - 00:00: Control - 00 Tramadol Tramadol Yes Arian 1 tablet C ommon HCl HCl Marin as needed [facility] Baclofen 10 Baclofen 10 No 1{table QD Baclofen MG MG t_as_ne 10 MG eded} Rosuvastati Rosuvastati No Rosuvastat n Calcium n Calcium in Calcium 10 MG 10 MG 10 MG Zinc Zinc No Zinc DULoxetine DULoxetine No DULoxetine HCl 30 MG HCl 30 MG HCl 30 MG Accu-Chek Accu-Chek No Accu-Chek FastClix FastClix FastClix Lancets - Lancets - Lancets - Vitamin D-3 Vitamin D-3 No Vitamin D-3 Aspirin 81 Aspirin 81 No 1{table QD Aspirin 81 81 MG 81 MG t} 81 MG ProAir HFA ProAir HFA No 2{puffs QID ProAir HFA 108 (90 108 (90 _as_nee 108 (90 Base) Base) ded} Base) MCG/ACT MCG/ACT MCG/ACT Crestor 10 Crestor 10 No 1{table QD Crestor 10 MG MG t} MG ZyrTEC ZyrTEC No 1{table QD ZyrTEC Allergy 10 Allergy 10 t} Allergy 10 MG MG MG Levothyroxi Levothyroxi No Levothyrox ne Sodium ne Sodium ine Sodium 50 MCG 50 MCG 50 MCG Mupirocin Mupirocin No Mupirocin Calcium 2 % Calcium 2 % Calcium 2 % Lisinopril Lisinopril No Lisinopril 2.5 MG 2.5 MG 2.5 MG Albuterol Albuterol No Albuterol Sulfate HFA Sulfate HFA Sulfate 108 (90 108 (90 HFA 108 Base) Base) (90 Base) MCG/ACT MCG/ACT MCG/ACT Breo Breo No Breo Ellipta Ellipta Ellipta 100-25 100-25 100-25 MCG/INH MCG/INH MCG/INH Lisinopril Lisinopril No 1{table QD Lisinopril 2.5 MG 2.5 MG t} 2.5 MG Zetonna 37 Zetonna 37 No 1{puff_ QD Zetonna 37 MCG/ACT MCG/ACT in_each MCG/ACT _nostri l} Levothyroxi Levothyroxi No QD Levothyrox ne Sodium ne Sodium ine Sodium 50 MCG 50 MCG 50 MCG Zinc Zinc No Zinc Lyrica 75 Lyrica 75 No 1{capsu BID Lyrica 75 MG MG le} MG Singulair Singulair No 1{table QD Singulair 10 MG 10 MG t_in_th 10 MG e_eveni ng} DULoxetine DULoxetine No DULoxetine HCl 30 MG HCl 30 MG HCl 30 MG Bactroban 2 Bactroban 2 No 1{appli TID Bactroban % % cation_ 2 % to_affe cted_ar ea} metFORMIN metFORMIN No metFORMIN HCl 500 MG HCl 500 MG HCl 500 MG Breo Breo No Breo Ellipta Ellipta Ellipta 100-25 100-25 100-25 MCG/INH MCG/INH MCG/INH traMADol traMADol No 1{table traMADol HCl 50 MG HCl 50 MG t_as_ne HCl 50 MG eded} Lyrica 75 Lyrica 75 No 1{capsu BID Lyrica 75 MG MG le} MG DULoxetine DULoxetine No 1{capsu QD DULoxetine HCl 30 MG HCl 30 MG le} HCl 30 MG Rosuvastati Rosuvastati No Rosuvastat n Calcium n Calcium in Calcium 10 MG 10 MG 10 MG Flonase 50 Flonase 50 No 1{spray QD Flonase 50 MCG/ACT MCG/ACT _in_eac MCG/ACT h_nostr il} Baclofen 10 Baclofen 10 No 1{table QD Baclofen MG MG t_as_ne 10 MG eded} Accu-Chek Accu-Chek No Accu-Chek FastClix FastClix FastClix Lancets - Lancets - Lancets - Vitamin D-3 Vitamin D-3 No Vitamin D-3 Aspirin 81 Aspirin 81 No 1{table QD Aspirin 81 81 MG 81 MG t} 81 MG ProAir HFA ProAir HFA No 2{puffs QID ProAir HFA 108 (90 108 (90 _as_nee 108 (90 Base) Base) ded} Base) MCG/ACT MCG/ACT MCG/ACT Crestor 10 Crestor 10 No 1{table QD Crestor 10 MG MG t} MG ZyrTEC ZyrTEC No 1{table QD ZyrTEC Allergy 10 Allergy 10 t} Allergy 10 MG MG MG Levothyroxi Levothyroxi No Levothyrox ne Sodium ne Sodium ine Sodium 50 MCG 50 MCG 50 MCG Mupirocin Mupirocin No Mupirocin Calcium 2 % Calcium 2 % Calcium 2 % Lisinopril Lisinopril No Lisinopril 2.5 MG 2.5 MG 2.5 MG Albuterol Albuterol No Albuterol Sulfate HFA Sulfate HFA Sulfate 108 (90 108 (90 HFA 108 Base) Base) (90 Base) MCG/ACT MCG/ACT MCG/ACT Breo Breo No Breo Ellipta Ellipta Ellipta 100-25 100-25 100-25 MCG/INH MCG/INH MCG/INH Lisinopril Lisinopril No 1{table QD Lisinopril 2.5 MG 2.5 MG t} 2.5 MG Zetonna 37 Zetonna 37 No 1{puff_ QD Zetonna 37 MCG/ACT MCG/ACT in_each MCG/ACT _nostri l} Levothyroxi Levothyroxi No QD Levothyrox ne Sodium ne Sodium ine Sodium 50 MCG 50 MCG 50 MCG Zinc Zinc No Zinc Lyrica 75 Lyrica 75 No 1{capsu BID Lyrica 75 MG MG le} MG Singulair Singulair No 1{table QD Singulair 10 MG 10 MG t_in_th 10 MG e_eveni ng} DULoxetine DULoxetine No DULoxetine HCl 30 MG HCl 30 MG HCl 30 MG Bactroban 2 Bactroban 2 No 1{appli TID Bactroban % % cation_ 2 % to_affe cted_ar ea} metFORMIN metFORMIN No metFORMIN HCl 500 MG HCl 500 MG HCl 500 MG Breo Breo No Breo Ellipta Ellipta Ellipta 100-25 100-25 100-25 MCG/INH MCG/INH MCG/INH traMADol traMADol No 1{table traMADol HCl 50 MG HCl 50 MG t_as_ne HCl 50 MG eded} Lyrica 75 Lyrica 75 No 1{capsu BID Lyrica 75 MG MG le} MG DULoxetine DULoxetine No 1{capsu QD DULoxetine HCl 30 MG HCl 30 MG le} HCl 30 MG Rosuvastati Rosuvastati No Rosuvastat n Calcium n Calcium in Calcium 10 MG 10 MG 10 MG Flonase 50 Flonase 50 No 1{spray QD Flonase 50 MCG/ACT MCG/ACT _in_eac MCG/ACT h_nostr il} Baclofen 10 Baclofen 10 No 1{table QD Baclofen MG MG t_as_ne 10 MG eded} ZyrTEC ZyrTEC No 1{table QD ZyrTEC Allergy 10 Allergy 10 t} Allergy 10 MG MG MG Baclofen 10 Baclofen 10 No 1{table QD Baclofen MG MG t_as_ne 10 MG eded} Lisinopril Lisinopril No Lisinopril 2.5 MG 2.5 MG 2.5 MG Bactroban 2 Bactroban 2 No 1{appli TID Bactroban % % cation_ 2 % to_affe cted_ar ea} Zetonna 37 Zetonna 37 No 1{puff_ QD Zetonna 37 MCG/ACT MCG/ACT in_each MCG/ACT _nostri l} Crestor 10 Crestor 10 No 1{table QD Crestor 10 MG MG t} MG Rosuvastati Rosuvastati No Rosuvastat n Calcium n Calcium in Calcium 10 MG 10 MG 10 MG metFORMIN metFORMIN No metFORMIN HCl 500 MG HCl 500 MG HCl 500 MG Accu-Chek Accu-Chek No Accu-Chek FastClix FastClix FastClix Lancets - Lancets - Lancets - Breo Breo No Breo Ellipta Ellipta Ellipta 100-25 100-25 100-25 MCG/INH MCG/INH MCG/INH Aspirin 81 Aspirin 81 No 1{table QD Aspirin 81 81 MG 81 MG t} 81 MG Lyrica 75 Lyrica 75 No 1{capsu BID Lyrica 75 MG MG le} MG ProAir HFA ProAir HFA No 2{puffs QID ProAir HFA 108 (90 108 (90 _as_nee 108 (90 Base) Base) ded} Base) MCG/ACT MCG/ACT MCG/ACT Mupirocin Mupirocin No Mupirocin Calcium 2 % Calcium 2 % Calcium 2 % Singulair Singulair No 1{table QD Singulair 10 MG 10 MG t_in_th 10 MG e_eveni ng} Flonase 50 Flonase 50 No 1{spray QD Flonase 50 MCG/ACT MCG/ACT _in_eac MCG/ACT h_nostr il} Levothyroxi Levothyroxi No Levothyrox ne Sodium ne Sodium ine Sodium 50 MCG 50 MCG 50 MCG Lyrica 75 Lyrica 75 No 1{capsu BID Lyrica 75 MG MG le} MG Albuterol Albuterol No Albuterol Sulfate HFA Sulfate HFA Sulfate 108 (90 108 (90 HFA 108 Base) Base) (90 Base) MCG/ACT MCG/ACT MCG/ACT Baclofen 10 Baclofen 10 No 1{table QD Baclofen MG MG t_as_ne 10 MG eded} Lyrica 75 Lyrica 75 No 1{capsu BID Lyrica 75 MG MG le} MG Zetonna 37 Zetonna 37 No 1{puff_ QD Zetonna 37 MCG/ACT MCG/ACT in_each MCG/ACT _nostri l} Lyrica 75 Lyrica 75 No 1{capsu BID Lyrica 75 MG MG le} MG ZyrTEC ZyrTEC No 1{table QD ZyrTEC Allergy 10 Allergy 10 t} Allergy 10 MG MG MG Rosuvastati Rosuvastati No Rosuvastat n Calcium n Calcium in Calcium 10 MG 10 MG 10 MG Breo Breo No Breo Ellipta Ellipta Ellipta 100-25 100-25 100-25 MCG/INH MCG/INH MCG/INH Albuterol Albuterol No Albuterol Sulfate HFA Sulfate HFA Sulfate 108 (90 108 (90 HFA 108 Base) Base) (90 Base) MCG/ACT MCG/ACT MCG/ACT Levothyroxi Levothyroxi No Levothyrox ne Sodium ne Sodium ine Sodium 50 MCG 50 MCG 50 MCG Bactroban 2 Bactroban 2 No 1{appli TID Bactroban % % cation_ 2 % to_affe cted_ar ea} ProAir HFA ProAir HFA No 2{puffs QID ProAir HFA 108 (90 108 (90 _as_nee 108 (90 Base) Base) ded} Base) MCG/ACT MCG/ACT MCG/ACT metFORMIN metFORMIN No metFORMIN HCl 500 MG HCl 500 MG HCl 500 MG Accu-Chek Accu-Chek No Accu-Chek FastClix FastClix FastClix Lancets - Lancets - Lancets - Aspirin 81 Aspirin 81 No 1{table QD Aspirin 81 81 MG 81 MG t} 81 MG Lisinopril Lisinopril No Lisinopril 2.5 MG 2.5 MG 2.5 MG Singulair Singulair No 1{table QD Singulair 10 MG 10 MG t_in_th 10 MG e_eveni ng} Flonase 50 Flonase 50 No 1{spray QD Flonase 50 MCG/ACT MCG/ACT _in_eac MCG/ACT h_nostr il} Crestor 10 Crestor 10 No 1{table QD Crestor 10 MG MG t} MG Mupirocin Mupirocin No Mupirocin Calcium 2 % Calcium 2 % Calcium 2 % Levothyroxi Levothyroxi No Levothyrox ne Sodium ne Sodium ine Sodium 50 MCG 50 MCG 50 MCG Mupirocin Mupirocin No Mupirocin Calcium 2 % Calcium 2 % Calcium 2 % Albuterol Albuterol No Albuterol Sulfate HFA Sulfate HFA Sulfate 108 (90 108 (90 HFA 108 Base) Base) (90 Base) MCG/ACT MCG/ACT MCG/ACT Flonase 50 Flonase 50 No 1{spray QD Flonase 50 MCG/ACT MCG/ACT _in_eac MCG/ACT h_nostr il} Aspirin 81 Aspirin 81 No 1{table QD Aspirin 81 81 MG 81 MG t} 81 MG Lyrica 75 Lyrica 75 No 1{capsu BID Lyrica 75 MG MG le} MG Bactroban 2 Bactroban 2 No 1{appli TID Bactroban % % cation_ 2 % to_affe cted_ar ea} Lisinopril Lisinopril No Lisinopril 2.5 MG 2.5 MG 2.5 MG metFORMIN metFORMIN No metFORMIN HCl 500 MG HCl 500 MG HCl 500 MG Crestor 10 Crestor 10 No 1{table QD Crestor 10 MG MG t} MG Baclofen 10 Baclofen 10 No 1{table QD Baclofen MG MG t_as_ne 10 MG eded} ProAir HFA ProAir HFA No 2{puffs QID ProAir HFA 108 (90 108 (90 _as_nee 108 (90 Base) Base) ded} Base) MCG/ACT MCG/ACT MCG/ACT Accu-Chek Accu-Chek No Accu-Chek FastClix FastClix FastClix Lancets - Lancets - Lancets - ZyrTEC ZyrTEC No 1{table QD ZyrTEC Allergy 10 Allergy 10 t} Allergy 10 MG MG MG Lyrica 75 Lyrica 75 No 1{capsu BID Lyrica 75 MG MG le} MG Zetonna 37 Zetonna 37 No 1{puff_ QD Zetonna 37 MCG/ACT MCG/ACT in_each MCG/ACT _nostri l} Rosuvastati Rosuvastati No Rosuvastat n Calcium n Calcium in Calcium 10 MG 10 MG 10 MG Singulair Singulair No 1{table QD Singulair 10 MG 10 MG t_in_th 10 MG e_eveni ng} Breo Breo No Breo Ellipta Ellipta Ellipta 100-25 100-25 100-25 MCG/INH MCG/INH MCG/INH Aspirin 81 Aspirin 81 No 1{table QD Aspirin 81 81 MG 81 MG t} 81 MG Mupirocin Mupirocin No Mupirocin Calcium 2 % Calcium 2 % Calcium 2 % Breo Breo No Breo Ellipta Ellipta Ellipta 100-25 100-25 100-25 MCG/INH MCG/INH MCG/INH ZyrTEC ZyrTEC No 1{table QD ZyrTEC Allergy 10 Allergy 10 t} Allergy 10 MG MG MG Flonase 50 Flonase 50 No 1{spray QD Flonase 50 MCG/ACT MCG/ACT _in_eac MCG/ACT h_nostr il} Bactroban 2 Bactroban 2 No 1{appli TID Bactroban % % cation_ 2 % to_affe cted_ar ea} metFORMIN metFORMIN No metFORMIN HCl 500 MG HCl 500 MG HCl 500 MG Lisinopril Lisinopril No Lisinopril 2.5 MG 2.5 MG 2.5 MG Crestor 10 Crestor 10 No 1{table QD Crestor 10 MG MG t} MG ProAir HFA ProAir HFA No 2{puffs QID ProAir HFA 108 (90 108 (90 _as_nee 108 (90 Base) Base) ded} Base) MCG/ACT MCG/ACT MCG/ACT Baclofen 10 Baclofen 10 No 1{table QD Baclofen MG MG t_as_ne 10 MG eded} Lyrica 75 Lyrica 75 No 1{capsu BID Lyrica 75 MG MG le} MG Singulair Singulair No 1{table QD Singulair 10 MG 10 MG t_in_th 10 MG e_eveni ng} Zetonna 37 Zetonna 37 No 1{puff_ QD Zetonna 37 MCG/ACT MCG/ACT in_each MCG/ACT _nostri l} Levothyroxi Levothyroxi No Levothyrox ne Sodium ne Sodium ine Sodium 50 MCG 50 MCG 50 MCG Rosuvastati Rosuvastati No Rosuvastat n Calcium n Calcium in Calcium 10 MG 10 MG 10 MG Albuterol Albuterol No Albuterol Sulfate HFA Sulfate HFA Sulfate 108 (90 108 (90 HFA 108 Base) Base) (90 Base) MCG/ACT MCG/ACT MCG/ACT Lyrica 75 Lyrica 75 No 1{capsu BID Lyrica 75 MG MG le} MG Accu-Chek Accu-Chek No Accu-Chek FastClix FastClix FastClix Lancets - Lancets - Lancets - Accu-Chek Accu-Chek No Accu-Chek FastClix FastClix FastClix Lancets - Lancets - Lancets - Lisinopril Lisinopril No Lisinopril 2.5 MG 2.5 MG 2.5 MG Bactroban 2 Bactroban 2 No 1{appli TID Bactroban % % cation_ 2 % to_affe cted_ar ea} Flonase 50 Flonase 50 No 1{spray QD Flonase 50 MCG/ACT MCG/ACT _in_eac MCG/ACT h_nostr il} Aspirin 81 Aspirin 81 No 1{table QD Aspirin 81 81 MG 81 MG t} 81 MG Crestor 10 Crestor 10 No 1{table QD Crestor 10 MG MG t} MG Zetonna 37 Zetonna 37 No 1{puff_ QD Zetonna 37 MCG/ACT MCG/ACT in_each MCG/ACT _nostri l} metFORMIN metFORMIN No metFORMIN HCl 500 MG HCl 500 MG HCl 500 MG ZyrTEC ZyrTEC No 1{table QD ZyrTEC Allergy 10 Allergy 10 t} Allergy 10 MG MG MG Levothyroxi Levothyroxi No Levothyrox ne Sodium ne Sodium ine Sodium 50 MCG 50 MCG 50 MCG ProAir HFA ProAir HFA No 2{puffs QID ProAir HFA 108 (90 108 (90 _as_nee 108 (90 Base) Base) ded} Base) MCG/ACT MCG/ACT MCG/ACT Lyrica 75 Lyrica 75 No 1{capsu BID Lyrica 75 MG MG le} MG Mupirocin Mupirocin No Mupirocin Calcium 2 % Calcium 2 % Calcium 2 % Lyrica 75 Lyrica 75 No 1{capsu BID Lyrica 75 MG MG le} MG Singulair Singulair No 1{table QD Singulair 10 MG 10 MG t_in_th 10 MG e_eveni ng} Albuterol Albuterol No Albuterol Sulfate HFA Sulfate HFA Sulfate 108 (90 108 (90 HFA 108 Base) Base) (90 Base) MCG/ACT MCG/ACT MCG/ACT Baclofen 10 Baclofen 10 No 1{table QD Baclofen MG MG t_as_ne 10 MG eded} Lisinopril Lisinopril No 1{table QD Lisinopril 2.5 MG 2.5 MG t} 2.5 MG metFORMIN metFORMIN No BID metFORMIN HCl 500 MG HCl 500 MG HCl 500 MG Breo Breo No Breo Ellipta Ellipta Ellipta 100-25 100-25 100-25 MCG/INH MCG/INH MCG/INH Rosuvastati Rosuvastati No Rosuvastat n Calcium n Calcium in Calcium 10 MG 10 MG 10 MG Breo Breo No Breo Ellipta Ellipta Ellipta 100-25 100-25 100-25 MCG/INH MCG/INH MCG/INH Levothyroxi Levothyroxi No QD Levothyrox ne Sodium ne Sodium ine Sodium 50 MCG 50 MCG 50 MCG Accu-Chek Accu-Chek No Accu-Chek FastClix FastClix FastClix Lancets - Lancets - Lancets - Lisinopril Lisinopril No Lisinopril 2.5 MG 2.5 MG 2.5 MG Bactroban 2 Bactroban 2 No 1{appli TID Bactroban % % cation_ 2 % to_affe cted_ar ea} Flonase 50 Flonase 50 No 1{spray QD Flonase 50 MCG/ACT MCG/ACT _in_eac MCG/ACT h_nostr il} Aspirin 81 Aspirin 81 No 1{table QD Aspirin 81 81 MG 81 MG t} 81 MG Crestor 10 Crestor 10 No 1{table QD Crestor 10 MG MG t} MG Zetonna 37 Zetonna 37 No 1{puff_ QD Zetonna 37 MCG/ACT MCG/ACT in_each MCG/ACT _nostri l} metFORMIN metFORMIN No metFORMIN HCl 500 MG HCl 500 MG HCl 500 MG ZyrTEC ZyrTEC No 1{table QD ZyrTEC Allergy 10 Allergy 10 t} Allergy 10 MG MG MG Levothyroxi Levothyroxi No Levothyrox ne Sodium ne Sodium ine Sodium 50 MCG 50 MCG 50 MCG ProAir HFA ProAir HFA No 2{puffs QID ProAir HFA 108 (90 108 (90 _as_nee 108 (90 Base) Base) ded} Base) MCG/ACT MCG/ACT MCG/ACT Lyrica 75 Lyrica 75 No 1{capsu BID Lyrica 75 MG MG le} MG Mupirocin Mupirocin No Mupirocin Calcium 2 % Calcium 2 % Calcium 2 % Lyrica 75 Lyrica 75 No 1{capsu BID Lyrica 75 MG MG le} MG Singulair Singulair No 1{table QD Singulair 10 MG 10 MG t_in_th 10 MG e_eveni ng} Albuterol Albuterol No Albuterol Sulfate HFA Sulfate HFA Sulfate 108 (90 108 (90 HFA 108 Base) Base) (90 Base) MCG/ACT MCG/ACT MCG/ACT Baclofen 10 Baclofen 10 No 1{table QD Baclofen MG MG t_as_ne 10 MG eded} Lisinopril Lisinopril No 1{table QD Lisinopril 2.5 MG 2.5 MG t} 2.5 MG metFORMIN metFORMIN No BID metFORMIN HCl 500 MG HCl 500 MG HCl 500 MG Breo Breo No Breo Ellipta Ellipta Ellipta 100-25 100-25 100-25 MCG/INH MCG/INH MCG/INH Rosuvastati Rosuvastati No Rosuvastat n Calcium n Calcium in Calcium 10 MG 10 MG 10 MG Breo Breo No Breo Ellipta Ellipta Ellipta 100-25 100-25 100-25 MCG/INH MCG/INH MCG/INH Levothyroxi Levothyroxi No QD Levothyrox ne Sodium ne Sodium ine Sodium 50 MCG 50 MCG 50 MCG Albuterol Albuterol No Albuterol Sulfate HFA Sulfate HFA Sulfate 108 (90 108 (90 HFA 108 Base) Base) (90 Base) MCG/ACT MCG/ACT MCG/ACT Flonase 50 Flonase 50 No 1{spray QD Flonase 50 MCG/ACT MCG/ACT _in_eac MCG/ACT h_nostr il} Vitamin D-3 Vitamin D-3 No Vitamin D-3 Breo Breo No Breo Ellipta Ellipta Ellipta 100-25 100-25 100-25 MCG/INH MCG/INH MCG/INH Lyrica 75 Lyrica 75 No 1{capsu BID Lyrica 75 MG MG le} MG Levothyroxi Levothyroxi No QD Levothyrox ne Sodium ne Sodium ine Sodium 50 MCG 50 MCG 50 MCG Aspirin 81 Aspirin 81 No 1{table QD Aspirin 81 81 MG 81 MG t} 81 MG metFORMIN metFORMIN No BID metFORMIN HCl 500 MG HCl 500 MG HCl 500 MG Lisinopril Lisinopril No 1{table QD Lisinopril 2.5 MG 2.5 MG t} 2.5 MG Lisinopril Lisinopril No Lisinopril 2.5 MG 2.5 MG 2.5 MG Levothyroxi Levothyroxi No Levothyrox ne Sodium ne Sodium ine Sodium 50 MCG 50 MCG 50 MCG Zinc Zinc No Zinc Singulair Singulair No 1{table QD Singulair 10 MG 10 MG t_in_th 10 MG e_eveni ng} Bactroban 2 Bactroban 2 No 1{appli TID Bactroban % % cation_ 2 % to_affe cted_ar ea} Rosuvastati Rosuvastati No Rosuvastat n Calcium n Calcium in Calcium 10 MG 10 MG 10 MG Accu-Chek Accu-Chek No Accu-Chek FastClix FastClix FastClix Lancets - Lancets - Lancets - Mupirocin Mupirocin No Mupirocin Calcium 2 % Calcium 2 % Calcium 2 % Zetonna 37 Zetonna 37 No 1{puff_ QD Zetonna 37 MCG/ACT MCG/ACT in_each MCG/ACT _nostri l} Baclofen 10 Baclofen 10 No 1{table QD Baclofen MG MG t_as_ne 10 MG eded} ZyrTEC ZyrTEC No 1{table QD ZyrTEC Allergy 10 Allergy 10 t} Allergy 10 MG MG MG metFORMIN metFORMIN No metFORMIN HCl 500 MG HCl 500 MG HCl 500 MG Lyrica 75 Lyrica 75 No 1{capsu BID Lyrica 75 MG MG le} MG ProAir HFA ProAir HFA No 2{puffs QID ProAir HFA 108 (90 108 (90 _as_nee 108 (90 Base) Base) ded} Base) MCG/ACT MCG/ACT MCG/ACT Breo Breo No Breo Ellipta Ellipta Ellipta 100-25 100-25 100-25 MCG/INH MCG/INH MCG/INH Crestor 10 Crestor 10 No 1{table QD Crestor 10 MG MG t} MG DULoxetine DULoxetine No DULoxetine HCl 30 MG HCl 30 MG HCl 30 MG Albuterol Albuterol No Albuterol Sulfate HFA Sulfate HFA Sulfate 108 (90 108 (90 HFA 108 Base) Base) (90 Base) MCG/ACT MCG/ACT MCG/ACT Flonase 50 Flonase 50 No 1{spray QD Flonase 50 MCG/ACT MCG/ACT _in_eac MCG/ACT h_nostr il} Vitamin D-3 Vitamin D-3 No Vitamin D-3 Breo Breo No Breo Ellipta Ellipta Ellipta 100-25 100-25 100-25 MCG/INH MCG/INH MCG/INH Lyrica 75 Lyrica 75 No 1{capsu BID Lyrica 75 MG MG le} MG Levothyroxi Levothyroxi No QD Levothyrox ne Sodium ne Sodium ine Sodium 50 MCG 50 MCG 50 MCG Aspirin 81 Aspirin 81 No 1{table QD Aspirin 81 81 MG 81 MG t} 81 MG metFORMIN metFORMIN No BID metFORMIN HCl 500 MG HCl 500 MG HCl 500 MG Lisinopril Lisinopril No 1{table QD Lisinopril 2.5 MG 2.5 MG t} 2.5 MG Lisinopril Lisinopril No Lisinopril 2.5 MG 2.5 MG 2.5 MG Levothyroxi Levothyroxi No Levothyrox ne Sodium ne Sodium ine Sodium 50 MCG 50 MCG 50 MCG Zinc Zinc No Zinc Singulair Singulair No 1{table QD Singulair 10 MG 10 MG t_in_th 10 MG e_eveni ng} Bactroban 2 Bactroban 2 No 1{appli TID Bactroban % % cation_ 2 % to_affe cted_ar ea} Rosuvastati Rosuvastati No Rosuvastat n Calcium n Calcium in Calcium 10 MG 10 MG 10 MG Accu-Chek Accu-Chek No Accu-Chek FastClix FastClix FastClix Lancets - Lancets - Lancets - Mupirocin Mupirocin No Mupirocin Calcium 2 % Calcium 2 % Calcium 2 % Zetonna 37 Zetonna 37 No 1{puff_ QD Zetonna 37 MCG/ACT MCG/ACT in_each MCG/ACT _nostri l} Baclofen 10 Baclofen 10 No 1{table QD Baclofen MG MG t_as_ne 10 MG eded} ZyrTEC ZyrTEC No 1{table QD ZyrTEC Allergy 10 Allergy 10 t} Allergy 10 MG MG MG metFORMIN metFORMIN No metFORMIN HCl 500 MG HCl 500 MG HCl 500 MG Lyrica 75 Lyrica 75 No 1{capsu BID Lyrica 75 MG MG le} MG ProAir HFA ProAir HFA No 2{puffs QID ProAir HFA 108 (90 108 (90 _as_nee 108 (90 Base) Base) ded} Base) MCG/ACT MCG/ACT MCG/ACT Breo Breo No Breo Ellipta Ellipta Ellipta 100-25 100-25 100-25 MCG/INH MCG/INH MCG/INH Crestor 10 Crestor 10 No 1{table QD Crestor 10 MG MG t} MG DULoxetine DULoxetine No DULoxetine HCl 30 MG HCl 30 MG HCl 30 MG Levothyroxi Levothyroxi No QD Levothyrox ne Sodium ne Sodium ine Sodium 50 MCG 50 MCG 50 MCG Albuterol Albuterol No Albuterol Sulfate HFA Sulfate HFA Sulfate 108 (90 108 (90 HFA 108 Base) Base) (90 Base) MCG/ACT MCG/ACT MCG/ACT Accu-Chek Accu-Chek No Accu-Chek FastClix FastClix FastClix Lancets - Lancets - Lancets - Vitamin D-3 Vitamin D-3 No Vitamin D-3 Crestor 10 Crestor 10 No 1{table QD Crestor 10 MG MG t} MG ProAir HFA ProAir HFA No 2{puffs QID ProAir HFA 108 (90 108 (90 _as_nee 108 (90 Base) Base) ded} Base) MCG/ACT MCG/ACT MCG/ACT Breo Breo No Breo Ellipta Ellipta Ellipta 100-25 100-25 100-25 MCG/INH MCG/INH MCG/INH Lyrica 75 Lyrica 75 No 1{capsu BID Lyrica 75 MG MG le} MG DULoxetine DULoxetine No 1{capsu QD DULoxetine HCl 30 MG HCl 30 MG le} HCl 30 MG Bactroban 2 Bactroban 2 No 1{appli TID Bactroban % % cation_ 2 % to_affe cted_ar ea} metFORMIN metFORMIN No BID metFORMIN HCl 500 MG HCl 500 MG HCl 500 MG Lisinopril Lisinopril No 1{table QD Lisinopril 2.5 MG 2.5 MG t} 2.5 MG Flonase 50 Flonase 50 No 1{spray QD Flonase 50 MCG/ACT MCG/ACT _in_eac MCG/ACT h_nostr il} Levothyroxi Levothyroxi No Levothyrox ne Sodium ne Sodium ine Sodium 50 MCG 50 MCG 50 MCG Mupirocin Mupirocin No Mupirocin Calcium 2 % Calcium 2 % Calcium 2 % Singulair Singulair No 1{table QD Singulair 10 MG 10 MG t_in_th 10 MG e_eveni ng} Lyrica 75 Lyrica 75 No 1{capsu BID Lyrica 75 MG MG le} MG Breo Breo No Breo Ellipta Ellipta Ellipta 100-25 100-25 100-25 MCG/INH MCG/INH MCG/INH traMADol traMADol No 1{table traMADol HCl 50 MG HCl 50 MG t_as_ne HCl 50 MG eded} Zetonna 37 Zetonna 37 No 1{puff_ QD Zetonna 37 MCG/ACT MCG/ACT in_each MCG/ACT _nostri l} Lisinopril Lisinopril No Lisinopril 2.5 MG 2.5 MG 2.5 MG Aspirin 81 Aspirin 81 No 1{table QD Aspirin 81 81 MG 81 MG t} 81 MG ZyrTEC ZyrTEC No 1{table QD ZyrTEC Allergy 10 Allergy 10 t} Allergy 10 MG MG MG metFORMIN metFORMIN No metFORMIN HCl 500 MG HCl 500 MG HCl 500 MG Baclofen 10 Baclofen 10 No 1{table QD Baclofen MG MG t_as_ne 10 MG eded} Rosuvastati Rosuvastati No Rosuvastat n Calcium n Calcium in Calcium 10 MG 10 MG 10 MG Zinc Zinc No Zinc DULoxetine DULoxetine No DULoxetine HCl 30 MG HCl 30 MG HCl 30 MG Accu-Chek Accu-Chek No Accu-Chek FastClix FastClix FastClix Lancets - Lancets - Lancets - Vitamin D-3 Vitamin D-3 No Vitamin D-3 Aspirin 81 Aspirin 81 No 1{table QD Aspirin 81 81 MG 81 MG t} 81 MG ProAir HFA ProAir HFA No 2{puffs QID ProAir HFA 108 (90 108 (90 _as_nee 108 (90 Base) Base) ded} Base) MCG/ACT MCG/ACT MCG/ACT Crestor 10 Crestor 10 No 1{table QD Crestor 10 MG MG t} MG ZyrTEC ZyrTEC No 1{table QD ZyrTEC Allergy 10 Allergy 10 t} Allergy 10 MG MG MG Levothyroxi Levothyroxi No Levothyrox ne Sodium ne Sodium ine Sodium 50 MCG 50 MCG 50 MCG Mupirocin Mupirocin No Mupirocin Calcium 2 % Calcium 2 % Calcium 2 % Lisinopril Lisinopril No Lisinopril 2.5 MG 2.5 MG 2.5 MG Albuterol Albuterol No Albuterol Sulfate HFA Sulfate HFA Sulfate 108 (90 108 (90 HFA 108 Base) Base) (90 Base) MCG/ACT MCG/ACT MCG/ACT Breo Breo No Breo Ellipta Ellipta Ellipta 100-25 100-25 100-25 MCG/INH MCG/INH MCG/INH Lisinopril Lisinopril No 1{table QD Lisinopril 2.5 MG 2.5 MG t} 2.5 MG Zetonna 37 Zetonna 37 No 1{puff_ QD Zetonna 37 MCG/ACT MCG/ACT in_each MCG/ACT _nostri l} Levothyroxi Levothyroxi No QD Levothyrox ne Sodium ne Sodium ine Sodium 50 MCG 50 MCG 50 MCG Zinc Zinc No Zinc Lyrica 75 Lyrica 75 No 1{capsu BID Lyrica 75 MG MG le} MG Singulair Singulair No 1{table QD Singulair 10 MG 10 MG t_in_th 10 MG e_eveni ng} DULoxetine DULoxetine No DULoxetine HCl 30 MG HCl 30 MG HCl 30 MG Bactroban 2 Bactroban 2 No 1{appli TID Bactroban % % cation_ 2 % to_affe cted_ar ea} metFORMIN metFORMIN No metFORMIN HCl 500 MG HCl 500 MG HCl 500 MG Breo Breo No Breo Ellipta Ellipta Ellipta 100-25 100-25 100-25 MCG/INH MCG/INH MCG/INH traMADol traMADol No 1{table traMADol HCl 50 MG HCl 50 MG t_as_ne HCl 50 MG eded} Lyrica 75 Lyrica 75 No 1{capsu BID Lyrica 75 MG MG le} MG DULoxetine DULoxetine No 1{capsu QD DULoxetine HCl 30 MG HCl 30 MG le} HCl 30 MG Rosuvastati Rosuvastati No Rosuvastat n Calcium n Calcium in Calcium 10 MG 10 MG 10 MG Flonase 50 Flonase 50 No 1{spray QD Flonase 50 MCG/ACT MCG/ACT _in_eac MCG/ACT h_nostr il} Baclofen 10 Baclofen 10 No 1{table QD Baclofen MG MG t_as_ne 10 MG eded} Accu-Chek Accu-Chek No Accu-Chek FastClix FastClix FastClix Lancets - Lancets - Lancets - Vitamin D-3 Vitamin D-3 No Vitamin D-3 Aspirin 81 Aspirin 81 No 1{table QD Aspirin 81 81 MG 81 MG t} 81 MG ProAir HFA ProAir HFA No 2{puffs QID ProAir HFA 108 (90 108 (90 _as_nee 108 (90 Base) Base) ded} Base) MCG/ACT MCG/ACT MCG/ACT Crestor 10 Crestor 10 No 1{table QD Crestor 10 MG MG t} MG ZyrTEC ZyrTEC No 1{table QD ZyrTEC Allergy 10 Allergy 10 t} Allergy 10 MG MG MG Levothyroxi Levothyroxi No Levothyrox ne Sodium ne Sodium ine Sodium 50 MCG 50 MCG 50 MCG Mupirocin Mupirocin No Mupirocin Calcium 2 % Calcium 2 % Calcium 2 % Lisinopril Lisinopril No Lisinopril 2.5 MG 2.5 MG 2.5 MG Albuterol Albuterol No Albuterol Sulfate HFA Sulfate HFA Sulfate 108 (90 108 (90 HFA 108 Base) Base) (90 Base) MCG/ACT MCG/ACT MCG/ACT Breo Breo No Breo Ellipta Ellipta Ellipta 100-25 100-25 100-25 MCG/INH MCG/INH MCG/INH Lisinopril Lisinopril No 1{table QD Lisinopril 2.5 MG 2.5 MG t} 2.5 MG Zetonna 37 Zetonna 37 No 1{puff_ QD Zetonna 37 MCG/ACT MCG/ACT in_each MCG/ACT _nostri l} Levothyroxi Levothyroxi No QD Levothyrox ne Sodium ne Sodium ine Sodium 50 MCG 50 MCG 50 MCG Zinc Zinc No Zinc Lyrica 75 Lyrica 75 No 1{capsu BID Lyrica 75 MG MG le} MG Singulair Singulair No 1{table QD Singulair 10 MG 10 MG t_in_th 10 MG e_eveni ng} DULoxetine DULoxetine No DULoxetine HCl 30 MG HCl 30 MG HCl 30 MG Bactroban 2 Bactroban 2 No 1{appli TID Bactroban % % cation_ 2 % to_affe cted_ar ea} metFORMIN metFORMIN No metFORMIN HCl 500 MG HCl 500 MG HCl 500 MG Breo Breo No Breo Ellipta Ellipta Ellipta 100-25 100-25 100-25 MCG/INH MCG/INH MCG/INH traMADol traMADol No 1{table traMADol HCl 50 MG HCl 50 MG t_as_ne HCl 50 MG eded} Lyrica 75 Lyrica 75 No 1{capsu BID Lyrica 75 MG MG le} MG DULoxetine DULoxetine No 1{capsu QD DULoxetine HCl 30 MG HCl 30 MG le} HCl 30 MG Rosuvastati Rosuvastati No Rosuvastat n Calcium n Calcium in Calcium 10 MG 10 MG 10 MG Flonase 50 Flonase 50 No 1{spray QD Flonase 50 MCG/ACT MCG/ACT _in_eac MCG/ACT h_nostr il} Baclofen 10 Baclofen 10 No 1{table QD Baclofen MG MG t_as_ne 10 MG eded} Levothyroxi Levothyroxi No Levothyrox ne Sodium ne Sodium ine Sodium 50 MCG 50 MCG 50 MCG Mupirocin Mupirocin No Mupirocin Calcium 2 % Calcium 2 % Calcium 2 % Accu-Chek Accu-Chek No Accu-Chek FastClix FastClix FastClix Lancets - Lancets - Lancets - Vitamin D-3 Vitamin D-3 No Vitamin D-3 Lisinopril Lisinopril No Lisinopril 2.5 MG 2.5 MG 2.5 MG ZyrTEC ZyrTEC No 1{table QD ZyrTEC Allergy 10 Allergy 10 t} Allergy 10 MG MG MG Crestor 10 Crestor 10 No 1{table QD Crestor 10 MG MG t} MG metFORMIN metFORMIN No metFORMIN HCl 500 MG HCl 500 MG HCl 500 MG Albuterol Albuterol No Albuterol Sulfate HFA Sulfate HFA Sulfate 108 (90 108 (90 HFA 108 Base) Base) (90 Base) MCG/ACT MCG/ACT MCG/ACT DULoxetine DULoxetine No DULoxetine HCl 30 MG HCl 30 MG HCl 30 MG Singulair Singulair No 1{table QD Singulair 10 MG 10 MG t_in_th 10 MG e_eveni ng} Lisinopril Lisinopril No 1{table QD Lisinopril 2.5 MG 2.5 MG t} 2.5 MG Levothyroxi Levothyroxi No QD Levothyrox ne Sodium ne Sodium ine Sodium 50 MCG 50 MCG 50 MCG Bactroban 2 Bactroban 2 No 1{appli TID Bactroban % % cation_ 2 % to_affe cted_ar ea} Lyrica 75 Lyrica 75 No 1{capsu BID Lyrica 75 MG MG le} MG Zinc Zinc No Zinc ProAir HFA ProAir HFA No 2{puffs QID ProAir HFA 108 (90 108 (90 _as_nee 108 (90 Base) Base) ded} Base) MCG/ACT MCG/ACT MCG/ACT Breo Breo No Breo Ellipta Ellipta Ellipta 100-25 100-25 100-25 MCG/ACT MCG/ACT MCG/ACT Breo Breo No Breo Ellipta Ellipta Ellipta 100-25 100-25 100-25 MCG/INH MCG/INH MCG/INH Aspirin 81 Aspirin 81 No 1{table QD Aspirin 81 81 MG 81 MG t} 81 MG Zetonna 37 Zetonna 37 No 1{puff_ QD Zetonna 37 MCG/ACT MCG/ACT in_each MCG/ACT _nostri l} Lyrica 75 Lyrica 75 No 1{capsu BID Lyrica 75 MG MG le} MG DULoxetine DULoxetine No 1{capsu QD DULoxetine HCl 30 MG HCl 30 MG le} HCl 30 MG Rosuvastati Rosuvastati No Rosuvastat n Calcium n Calcium in Calcium 10 MG 10 MG 10 MG Flonase 50 Flonase 50 No 1{spray QD Flonase 50 MCG/ACT MCG/ACT _in_eac MCG/ACT h_nostr il} Baclofen 10 Baclofen 10 No 1{table QD Baclofen MG MG t_as_ne 10 MG eded} Levothyroxi Levothyroxi No Levothyrox ne Sodium ne Sodium ine Sodium 50 MCG 50 MCG 50 MCG Mupirocin Mupirocin No Mupirocin Calcium 2 % Calcium 2 % Calcium 2 % Accu-Chek Accu-Chek No Accu-Chek FastClix FastClix FastClix Lancets - Lancets - Lancets - Vitamin D-3 Vitamin D-3 No Vitamin D-3 Lisinopril Lisinopril No Lisinopril 2.5 MG 2.5 MG 2.5 MG ZyrTEC ZyrTEC No 1{table QD ZyrTEC Allergy 10 Allergy 10 t} Allergy 10 MG MG MG Crestor 10 Crestor 10 No 1{table QD Crestor 10 MG MG t} MG metFORMIN metFORMIN No metFORMIN HCl 500 MG HCl 500 MG HCl 500 MG Albuterol Albuterol No Albuterol Sulfate HFA Sulfate HFA Sulfate 108 (90 108 (90 HFA 108 Base) Base) (90 Base) MCG/ACT MCG/ACT MCG/ACT DULoxetine DULoxetine No DULoxetine HCl 30 MG HCl 30 MG HCl 30 MG Singulair Singulair No 1{table QD Singulair 10 MG 10 MG t_in_th 10 MG e_eveni ng} Lisinopril Lisinopril No 1{table QD Lisinopril 2.5 MG 2.5 MG t} 2.5 MG Levothyroxi Levothyroxi No QD Levothyrox ne Sodium ne Sodium ine Sodium 50 MCG 50 MCG 50 MCG Bactroban 2 Bactroban 2 No 1{appli TID Bactroban % % cation_ 2 % to_affe cted_ar ea} Lyrica 75 Lyrica 75 No 1{capsu BID Lyrica 75 MG MG le} MG Zinc Zinc No Zinc ProAir HFA ProAir HFA No 2{puffs QID ProAir HFA 108 (90 108 (90 _as_nee 108 (90 Base) Base) ded} Base) MCG/ACT MCG/ACT MCG/ACT Breo Breo No Breo Ellipta Ellipta Ellipta 100-25 100-25 100-25 MCG/ACT MCG/ACT MCG/ACT Breo Breo No Breo Ellipta Ellipta Ellipta 100-25 100-25 100-25 MCG/INH MCG/INH MCG/INH Aspirin 81 Aspirin 81 No 1{table QD Aspirin 81 81 MG 81 MG t} 81 MG Zetonna 37 Zetonna 37 No 1{puff_ QD Zetonna 37 MCG/ACT MCG/ACT in_each MCG/ACT _nostri l} Lyrica 75 Lyrica 75 No 1{capsu BID Lyrica 75 MG MG le} MG DULoxetine DULoxetine No 1{capsu QD DULoxetine HCl 30 MG HCl 30 MG le} HCl 30 MG Rosuvastati Rosuvastati No Rosuvastat n Calcium n Calcium in Calcium 10 MG 10 MG 10 MG Flonase 50 Flonase 50 No 1{spray QD Flonase 50 MCG/ACT MCG/ACT _in_eac MCG/ACT h_nostr il} Baclofen 10 Baclofen 10 No 1{table QD Baclofen MG MG t_as_ne 10 MG eded} Vitamin D-3 Vitamin D-3 No Vitamin D-3 Levothyroxi Levothyroxi No QD Levothyrox ne Sodium ne Sodium ine Sodium 50 MCG 50 MCG 50 MCG Lyrica 75 Lyrica 75 No 1{capsu BID Lyrica 75 MG MG le} MG Levothyroxi Levothyroxi No Levothyrox ne Sodium ne Sodium ine Sodium 50 MCG 50 MCG 50 MCG metFORMIN metFORMIN No BID metFORMIN HCl 500 MG HCl 500 MG HCl 500 MG Breo Breo No Breo Ellipta Ellipta Ellipta 100-25 100-25 100-25 MCG/INH MCG/INH MCG/INH ZyrTEC ZyrTEC No 1{table QD ZyrTEC Allergy 10 Allergy 10 t} Allergy 10 MG MG MG Bactroban 2 Bactroban 2 No 1{appli TID Bactroban % % cation_ 2 % to_affe cted_ar ea} DULoxetine DULoxetine No 1{capsu QD DULoxetine HCl 30 MG HCl 30 MG le} HCl 30 MG ProAir HFA ProAir HFA No 2{puffs QID ProAir HFA 108 (90 108 (90 _as_nee 108 (90 Base) Base) ded} Base) MCG/ACT MCG/ACT MCG/ACT Mupirocin Mupirocin No Mupirocin Calcium 2 % Calcium 2 % Calcium 2 % Zetonna 37 Zetonna 37 No 1{puff_ QD Zetonna 37 MCG/ACT MCG/ACT in_each MCG/ACT _nostri l} DULoxetine DULoxetine No DULoxetine HCl 30 MG HCl 30 MG HCl 30 MG Flonase 50 Flonase 50 No 1{spray QD Flonase 50 MCG/ACT MCG/ACT _in_eac MCG/ACT h_nostr il} Lisinopril Lisinopril No Lisinopril 2.5 MG 2.5 MG 2.5 MG Aspirin 81 Aspirin 81 No 1{table QD Aspirin 81 81 MG 81 MG t} 81 MG Singulair Singulair No 1{table QD Singulair 10 MG 10 MG t_in_th 10 MG e_eveni ng} Crestor 10 Crestor 10 No 1{table QD Crestor 10 MG MG t} MG Lyrica 75 Lyrica 75 No 1{capsu BID Lyrica 75 MG MG le} MG Lisinopril Lisinopril No 1{table QD Lisinopril 2.5 MG 2.5 MG t} 2.5 MG Zinc Zinc No Zinc Accu-Chek Accu-Chek No Accu-Chek FastClix FastClix FastClix Lancets - Lancets - Lancets - metFORMIN metFORMIN No metFORMIN HCl 500 MG HCl 500 MG HCl 500 MG Albuterol Albuterol No Albuterol Sulfate HFA Sulfate HFA Sulfate 108 (90 108 (90 HFA 108 Base) Base) (90 Base) MCG/ACT MCG/ACT MCG/ACT Breo Breo No Breo Ellipta Ellipta Ellipta 100-25 100-25 100-25 MCG/ACT MCG/ACT MCG/ACT Rosuvastati Rosuvastati No Rosuvastat n Calcium n Calcium in Calcium 10 MG 10 MG 10 MG Baclofen 10 Baclofen 10 No 1{table QD Baclofen MG MG t_as_ne 10 MG eded} ZyrTEC ZyrTEC No 1{table QD ZyrTEC Allergy 10 Allergy 10 t} Allergy 10 MG MG MG metFORMIN metFORMIN No metFORMIN HCl 500 MG HCl 500 MG HCl 500 MG Vitamin D-3 Vitamin D-3 No Vitamin D-3 Levothyroxi Levothyroxi No QD Levothyrox ne Sodium ne Sodium ine Sodium 50 MCG 50 MCG 50 MCG ProAir HFA ProAir HFA No 2{puffs QID ProAir HFA 108 (90 108 (90 _as_nee 108 (90 Base) Base) ded} Base) MCG/ACT MCG/ACT MCG/ACT Breo Breo No Breo Ellipta Ellipta Ellipta 100-25 100-25 100-25 MCG/INH MCG/INH MCG/INH Bactroban 2 Bactroban 2 No 1{appli TID Bactroban % % cation_ 2 % to_affe cted_ar ea} DULoxetine DULoxetine No 1{capsu QD DULoxetine HCl 30 MG HCl 30 MG le} HCl 30 MG Crestor 10 Crestor 10 No 1{table QD Crestor 10 MG MG t} MG Mupirocin Mupirocin No Mupirocin Calcium 2 % Calcium 2 % Calcium 2 % Singulair Singulair No 1{table QD Singulair 10 MG 10 MG t_in_th 10 MG e_eveni ng} Zetonna 37 Zetonna 37 No 1{puff_ QD Zetonna 37 MCG/ACT MCG/ACT in_each MCG/ACT _nostri l} Zinc Zinc No Zinc Lyrica 75 Lyrica 75 No 1{capsu BID Lyrica 75 MG MG le} MG Accu-Chek Accu-Chek No Accu-Chek FastClix FastClix FastClix Lancets - Lancets - Lancets - Flonase 50 Flonase 50 No 1{spray QD Flonase 50 MCG/ACT MCG/ACT _in_eac MCG/ACT h_nostr il} Lisinopril Lisinopril No Lisinopril 2.5 MG 2.5 MG 2.5 MG Levothyroxi Levothyroxi No Levothyrox ne Sodium ne Sodium ine Sodium 50 MCG 50 MCG 50 MCG Lisinopril Lisinopril No 1{table QD Lisinopril 2.5 MG 2.5 MG t} 2.5 MG Aspirin 81 Aspirin 81 No 1{table QD Aspirin 81 81 MG 81 MG t} 81 MG Lyrica 75 Lyrica 75 No 1{capsu BID Lyrica 75 MG MG le} MG DULoxetine DULoxetine No DULoxetine HCl 30 MG HCl 30 MG HCl 30 MG Levothyroxi Levothyroxi No QD Levothyrox ne Sodium ne Sodium ine Sodium 50 MCG 50 MCG 50 MCG Albuterol Albuterol No Albuterol Sulfate HFA Sulfate HFA Sulfate 108 (90 108 (90 HFA 108 Base) Base) (90 Base) MCG/ACT MCG/ACT MCG/ACT Breo Breo No Breo Ellipta Ellipta Ellipta 100-25 100-25 100-25 MCG/ACT MCG/ACT MCG/ACT Rosuvastati Rosuvastati No Rosuvastat n Calcium n Calcium in Calcium 10 MG 10 MG 10 MG Baclofen 10 Baclofen 10 No 1{table QD Baclofen MG MG t_as_ne 10 MG eded} ZyrTEC ZyrTEC No 1{table QD ZyrTEC Allergy 10 Allergy 10 t} Allergy 10 MG MG MG metFORMIN metFORMIN No metFORMIN HCl 500 MG HCl 500 MG HCl 500 MG Vitamin D-3 Vitamin D-3 No Vitamin D-3 Albuterol Albuterol No Albuterol Sulfate HFA Sulfate HFA Sulfate 108 (90 108 (90 HFA 108 Base) Base) (90 Base) MCG/ACT MCG/ACT MCG/ACT Levothyroxi Levothyroxi No QD Levothyrox ne Sodium ne Sodium ine Sodium 50 MCG 50 MCG 50 MCG ProAir HFA ProAir HFA No 2{puffs QID ProAir HFA 108 (90 108 (90 _as_nee 108 (90 Base) Base) ded} Base) MCG/ACT MCG/ACT MCG/ACT Breo Breo No Breo Ellipta Ellipta Ellipta 100-25 100-25 100-25 MCG/INH MCG/INH MCG/INH Bactroban 2 Bactroban 2 No 1{appli TID Bactroban % % cation_ 2 % to_affe cted_ar ea} DULoxetine DULoxetine No 1{capsu QD DULoxetine HCl 30 MG HCl 30 MG le} HCl 30 MG Crestor 10 Crestor 10 No 1{table QD Crestor 10 MG MG t} MG Mupirocin Mupirocin No Mupirocin Calcium 2 % Calcium 2 % Calcium 2 % Singulair Singulair No 1{table QD Singulair 10 MG 10 MG t_in_th 10 MG e_eveni ng} Accu-Chek Accu-Chek No Accu-Chek FastClix FastClix FastClix Lancets - Lancets - Lancets - Zetonna 37 Zetonna 37 No 1{puff_ QD Zetonna 37 MCG/ACT MCG/ACT in_each MCG/ACT _nostri l} Zinc Zinc No Zinc Lyrica 75 Lyrica 75 No 1{capsu BID Lyrica 75 MG MG le} MG Accu-Chek Accu-Chek No Accu-Chek FastClix FastClix FastClix Lancets - Lancets - Lancets - Flonase 50 Flonase 50 No 1{spray QD Flonase 50 MCG/ACT MCG/ACT _in_eac MCG/ACT h_nostr il} Lisinopril Lisinopril No Lisinopril 2.5 MG 2.5 MG 2.5 MG Levothyroxi Levothyroxi No Levothyrox ne Sodium ne Sodium ine Sodium 50 MCG 50 MCG 50 MCG Lisinopril Lisinopril No 1{table QD Lisinopril 2.5 MG 2.5 MG t} 2.5 MG Aspirin 81 Aspirin 81 No 1{table QD Aspirin 81 81 MG 81 MG t} 81 MG Vitamin D-3 Vitamin D-3 No Vitamin D-3 Lyrica 75 Lyrica 75 No 1{capsu BID Lyrica 75 MG MG le} MG DULoxetine DULoxetine No DULoxetine HCl 30 MG HCl 30 MG HCl 30 MG Albuterol Albuterol No Albuterol Sulfate HFA Sulfate HFA Sulfate 108 (90 108 (90 HFA 108 Base) Base) (90 Base) MCG/ACT MCG/ACT MCG/ACT Breo Breo No Breo Ellipta Ellipta Ellipta 100-25 100-25 100-25 MCG/ACT MCG/ACT MCG/ACT Rosuvastati Rosuvastati No Rosuvastat n Calcium n Calcium in Calcium 10 MG 10 MG 10 MG Baclofen 10 Baclofen 10 No 1{table QD Baclofen MG MG t_as_ne 10 MG eded} ZyrTEC ZyrTEC No 1{table QD ZyrTEC Allergy 10 Allergy 10 t} Allergy 10 MG MG MG Crestor 10 Crestor 10 No 1{table QD Crestor 10 MG MG t} MG metFORMIN metFORMIN No metFORMIN HCl 500 MG HCl 500 MG HCl 500 MG Vitamin D-3 Vitamin D-3 No Vitamin D-3 Levothyroxi Levothyroxi No QD Levothyrox ne Sodium ne Sodium ine Sodium 50 MCG 50 MCG 50 MCG ProAir HFA ProAir HFA No 2{puffs QID ProAir HFA 108 (90 108 (90 _as_nee 108 (90 Base) Base) ded} Base) MCG/ACT MCG/ACT MCG/ACT Breo Breo No Breo Ellipta Ellipta Ellipta 100-25 100-25 100-25 MCG/INH MCG/INH MCG/INH Bactroban 2 Bactroban 2 No 1{appli TID Bactroban % % cation_ 2 % to_affe cted_ar ea} DULoxetine DULoxetine No 1{capsu QD DULoxetine HCl 30 MG HCl 30 MG le} HCl 30 MG Crestor 10 Crestor 10 No 1{table QD Crestor 10 MG MG t} MG Mupirocin Mupirocin No Mupirocin Calcium 2 % Calcium 2 % Calcium 2 % ProAir HFA ProAir HFA No 2{puffs QID ProAir HFA 108 (90 108 (90 _as_nee 108 (90 Base) Base) ded} Base) MCG/ACT MCG/ACT MCG/ACT Singulair Singulair No 1{table QD Singulair 10 MG 10 MG t_in_th 10 MG e_eveni ng} Zetonna 37 Zetonna 37 No 1{puff_ QD Zetonna 37 MCG/ACT MCG/ACT in_each MCG/ACT _nostri l} Zinc Zinc No Zinc Lyrica 75 Lyrica 75 No 1{capsu BID Lyrica 75 MG MG le} MG Accu-Chek Accu-Chek No Accu-Chek FastClix FastClix FastClix Lancets - Lancets - Lancets - Flonase 50 Flonase 50 No 1{spray QD Flonase 50 MCG/ACT MCG/ACT _in_eac MCG/ACT h_nostr il} Lisinopril Lisinopril No Lisinopril 2.5 MG 2.5 MG 2.5 MG Levothyroxi Levothyroxi No Levothyrox ne Sodium ne Sodium ine Sodium 50 MCG 50 MCG 50 MCG Breo Breo No Breo Ellipta Ellipta Ellipta 100-25 100-25 100-25 MCG/INH MCG/INH MCG/INH Lisinopril Lisinopril No 1{table QD Lisinopril 2.5 MG 2.5 MG t} 2.5 MG Aspirin 81 Aspirin 81 No 1{table QD Aspirin 81 81 MG 81 MG t} 81 MG Lyrica 75 Lyrica 75 No 1{capsu BID Lyrica 75 MG MG le} MG DULoxetine DULoxetine No DULoxetine HCl 30 MG HCl 30 MG HCl 30 MG Albuterol Albuterol No Albuterol Sulfate HFA Sulfate HFA Sulfate 108 (90 108 (90 HFA 108 Base) Base) (90 Base) MCG/ACT MCG/ACT MCG/ACT Breo Breo No Breo Ellipta Ellipta Ellipta 100-25 100-25 100-25 MCG/ACT MCG/ACT MCG/ACT Rosuvastati Rosuvastati No Rosuvastat n Calcium n Calcium in Calcium 10 MG 10 MG 10 MG Baclofen 10 Baclofen 10 No 1{table QD Baclofen MG MG t_as_ne 10 MG eded} Lyrica 75 Lyrica 75 No 1{capsu BID Lyrica 75 MG MG le} MG DULoxetine DULoxetine No 1{capsu QD DULoxetine HCl 30 MG HCl 30 MG le} HCl 30 MG Zetonna 37 Zetonna 37 No 1{puff_ QD Zetonna 37 MCG/ACT MCG/ACT in_each MCG/ACT _nostri l} Vitamin D-3 Vitamin D-3 No Vitamin D-3 Levothyroxi Levothyroxi No QD Levothyrox ne Sodium ne Sodium ine Sodium 50 MCG 50 MCG 50 MCG Zinc Zinc No Zinc ProAir HFA ProAir HFA No 2{puffs QID ProAir HFA 108 (90 108 (90 _as_nee 108 (90 Base) Base) ded} Base) MCG/ACT MCG/ACT MCG/ACT Singulair Singulair No 1{table QD Singulair 10 MG 10 MG t_in_th 10 MG e_eveni ng} Breo Breo No Breo Ellipta Ellipta Ellipta 100-25 100-25 100-25 MCG/INH MCG/INH MCG/INH Crestor 10 Crestor 10 No 1{table QD Crestor 10 MG MG t} MG Aspirin 81 Aspirin 81 No 1{table QD Aspirin 81 81 MG 81 MG t} 81 MG DULoxetine DULoxetine No DULoxetine HCl 60 MG HCl 60 MG HCl 60 MG Flonase 50 Flonase 50 No 1{spray QD Flonase 50 MCG/ACT MCG/ACT _in_eac MCG/ACT h_nostr il} Breo Breo No Breo Ellipta Ellipta Ellipta 100-25 100-25 100-25 MCG/ACT MCG/ACT MCG/ACT Bactroban 2 Bactroban 2 No 1{appli TID Bactroban % % cation_ 2 % to_affe cted_ar ea} Bactroban 2 Bactroban 2 No 1{appli TID Bactroban % % cation_ 2 % to_affe cted_ar ea} metFORMIN metFORMIN No BID metFORMIN HCl 500 MG HCl 500 MG HCl 500 MG ZyrTEC ZyrTEC No 1{table QD ZyrTEC Allergy 10 Allergy 10 t} Allergy 10 MG MG MG DULoxetine DULoxetine No DULoxetine HCl 30 MG HCl 30 MG HCl 30 MG Lisinopril Lisinopril No 1{table QD Lisinopril 2.5 MG 2.5 MG t} 2.5 MG Mupirocin Mupirocin No Mupirocin Calcium 2 % Calcium 2 % Calcium 2 % Lyrica 75 Lyrica 75 No 1{capsu BID Lyrica 75 MG MG le} MG Rosuvastati Rosuvastati No Rosuvastat n Calcium n Calcium in Calcium 10 MG 10 MG 10 MG metFORMIN metFORMIN No BID metFORMIN HCl 500 MG HCl 500 MG HCl 500 MG Levothyroxi Levothyroxi No Levothyrox ne Sodium ne Sodium ine Sodium 50 MCG 50 MCG 50 MCG Accu-Chek Accu-Chek No Accu-Chek FastClix FastClix FastClix Lancets - Lancets - Lancets - Baclofen 10 Baclofen 10 No 1{table QD Baclofen MG MG t_as_ne 10 MG eded} metFORMIN metFORMIN No metFORMIN HCl 500 MG HCl 500 MG HCl 500 MG Albuterol Albuterol No Albuterol Sulfate HFA Sulfate HFA Sulfate 108 (90 108 (90 HFA 108 Base) Base) (90 Base) MCG/ACT MCG/ACT MCG/ACT Lisinopril Lisinopril No 1{table QD Lisinopril 2.5 MG 2.5 MG t} 2.5 MG Flonase 50 Flonase 50 No 1{spray QD Flonase 50 MCG/ACT MCG/ACT _in_eac MCG/ACT h_nostr il} Levothyroxi Levothyroxi No Levothyrox ne Sodium ne Sodium ine Sodium 50 MCG 50 MCG 50 MCG Mupirocin Mupirocin No Mupirocin Calcium 2 % Calcium 2 % Calcium 2 % Singulair Singulair No 1{table QD Singulair 10 MG 10 MG t_in_th 10 MG e_eveni ng} Lyrica 75 Lyrica 75 No 1{capsu BID Lyrica 75 MG MG le} MG Breo Breo No Breo Ellipta Ellipta Ellipta 100-25 100-25 100-25 MCG/INH MCG/INH MCG/INH traMADol traMADol No 1{table traMADol HCl 50 MG HCl 50 MG t_as_ne HCl 50 MG eded} Zetonna 37 Zetonna 37 No 1{puff_ QD Zetonna 37 MCG/ACT MCG/ACT in_each MCG/ACT _nostri l} Lisinopril Lisinopril No Lisinopril 2.5 MG 2.5 MG 2.5 MG Aspirin 81 Aspirin 81 No 1{table QD Aspirin 81 81 MG 81 MG t} 81 MG ZyrTEC ZyrTEC No 1{table QD ZyrTEC Allergy 10 Allergy 10 t} Allergy 10 MG MG MG metFORMIN metFORMIN No metFORMIN HCl 500 MG HCl 500 MG HCl 500 MG Vital Signs Vital Name Observation Time Observation Value Comments Source height 2022-02-09 10:50:00 63 [in_i] Common [facility] weight 2022-02-09 10:50:00 102.6 [lb_av] [facility] temperature 2022-02-09 10:50:00 97.1 [degF] Common [facility] bmi 2022-02-09 10:50:00 18.17 kg/m2 Common S [facility] oximetry 2022-02-09 10:50:00 98 % [facility] respiratory rate 2022-02-09 10:50:00 18 /min Comm on [facility] blood pressure 2022-02-09 10:50:00 103 mm[Hg] Common [facility] - systolic [facility] blood pressure 2022-02-09 10:50:00 62 mm[Hg] Common [facility] - diastolic [facility] height 2021-12-15 13:50:00 63 [in_i] Common [facility] weight 2021-12-15 13:50:00 110.1 [lb_av] [facility] temperature 2021-12-15 13:50:00 97.9 [degF] Common [facility] bmi 2021-12-15 13:50:00 19.5 kg/m2 [facility] oximetry 2021-12-15 13:50:00 99 % [facility] respiratory rate 2021-12-15 13:50:00 18 /min Comm on [facility] blood pressure 2021-12-15 13:50:00 107 mm[Hg] Common [facility] - systolic [facility] blood pressure 2021-12-15 13:50:00 61 mm[Hg] Common [facility] - diastolic [facility] height 2021-11-26 14:00:00 63 [in_i] Common [facility] weight 2021-11-26 14:00:00 108.4 [lb_av] [facility] temperature 2021-11-26 14:00:00 97.0 [degF] Common [facility] bmi 2021-11-26 14:00:00 19.2 kg/m2 [facility] blood pressure 2021-11-26 14:00:00 122 mm[Hg] [facility] - systolic [facility] blood pressure 2021-11-26 14:00:00 79 mm[Hg] [facility] - diastolic [facility] height 2021-11-09 11:30:00 63 [in_i] Common [facility] weight 2021-11-09 11:30:00 108.7 [lb_av] Common [facility] temperature 2021-11-09 11:30:00 97.3 [degF] Common [facility] bmi 2021-11-09 11:30:00 19.25 kg/m2 Common [facility] oximetry 2021-11-09 11:30:00 99 % [facility] respiratory rate 2021-11-09 11:30:00 18 /min Comm on [facility] blood pressure 2021-11-09 11:30:00 110 mm[Hg] [facility] - systolic [facility] blood pressure 2021-11-09 11:30:00 64 mm[Hg] Common [facility] - diastolic [facility] height 2021-04-07 13:00:00 63 [in_i] Common [facility] weight 2021-04-07 13:00:00 105.9 [lb_av] [facility] temperature 2021-04-07 13:00:00 97.5 [degF] Common [facility] bmi 2021-04-07 13:00:00 18.76 kg/m2 Common S [facility] oximetry 2021-04-07 13:00:00 98 % Common [facility] respiratory rate 2021-04-07 13:00:00 18 /min Comm on [facility] blood pressure 2021-04-07 13:00:00 129 mm[Hg] Common [facility] - systolic [facility] blood pressure 2021-04-07 13:00:00 75 mm[Hg] Common [facility] - diastolic [facility] height 2021-04-07 13:00:00 63 [in_i] [facility] weight 2021-04-07 13:00:00 105.9 [lb_av] [facility] temperature 2021-04-07 13:00:00 97.5 [degF] [facility] bmi 2021-04-07 13:00:00 18.76 kg/m2 [facility] oximetry 2021-04-07 13:00:00 98 % [facility] respiratory rate 2021-04-07 13:00:00 18 /min [facility] on [facility] blood pressure 2021-04-07 13:00:00 129 mm[Hg] [facility] - systolic [facility] blood pressure 2021-04-07 13:00:00 75 mm[Hg] [facility] diastolic [facility] Procedures This patient has no known procedures. Encounters Start End Encounter Admission Attending Care Care Encounter Source Date/Time Date/Time Type Type Clinicians Facility Department ID 2022-06-08 Outpatient [place], STLMLC STLMLC [id number] Common 09:52:00 Arian 74618 [facility] 2022-03-23 Outpatient [place], STLMLC STLMLC [id number] Common 08:22:00 Arian [id number] [facility] 2022-03-11 Outpatient [facility], STLMLC STLMLC [id number] Common 14:00:00 Arian [id number] [facility] 2022-02-05 Outpatient [facility], STLMLC STLMLC [id number] Common 10:31:00 Arian 72391 [facility] 2022-01-13 Outpatient [place], STLMLC STLMLC [id number] Common 13:04:00 Arian [id number] [facility] 2021-11-26 Outpatient [place], STLMLC STLMLC [id number] Common 14:26:00 Arian 10195 [facility] 2021-11-12 Outpatient [place], STLMLC STLMLC Common 14:41:00 Arian [facility] 2021-04-15 Outpatient [facility], STLMLC STLMLC Common 12:54:57 Arian [facility] 2021-04-15 Outpatient [place], STLMLC STLMLC Common 12:54:40 Arian [facility] 2021-04-15 Outpatient [facility], STLMLC STLMLC Common 12:23:02 Arian [facility] 2021-04-15 Outpatient [place], STLMLC STLMLC Common 11:57:43 Arian [facility] 2021-04-15 Outpatient [facility], STLMLC STLMLC Common 11:56:48 Arian 13951 [facility] 2021-04-15 Outpatient [place], STLMLC STLMLC Common 11:18:21 Arian 96966 [facility] 2021-04-15 Outpatient [place], STLMLC STLMLC Common 11:17:40 Arian 12192 [facility] 2021-04-15 Outpatient [place], STLMLC STLMLC Common 11:10:40 Arian [id number] [facility] 2021-04-15 Outpatient [place], STLMLC STLMLC Common 11:01:28 Arian 23192 [facility] 2021-04-15 Outpatient [place], STLMLC STLMLC Common 11:01:07 Arian 10068 [facility] 2021-04-15 Outpatient [place], STLMLC STLMLC Common 11:00:26 Arian [id number] [facility] 2021-04-15 Outpatient [place], STLMLC STLMLC Common 10:59:36 Arian 11230 [facility] 2022-03-23 2022-03-23 (WEB) STLMLC STLMLC [id number] Co mmon 00:00:00 00:00:00 [facility] 2022-03-22 2022-03-22 (WEB) STLMLC STLMLC [id number] Co mmon 00:00:00 00:00:00 [facility] 2022-03-11 2022-03-11 (WEB) STLMLC STLMLC [id number] Co mmon 00:00:00 00:00:00 [facility] 2022-02-09 2022-02-09 OFFICE STLMLC STLMLC [id number] Co mmon 00:00:00 00:00:00 VISIT [facility] LEVEL 4 [facility] 2022-02-01 2022-02-01 (TEL) STLMLC STLMLC [id number] Co mmon 00:00:00 00:00:00 [facility] 2022-01-14 2022-01-14 (TEL) STLMLC STLMLC [id number] Co mmon 00:00:00 00:00:00 [facility] 2021-12-15 2021-12-15 OFFICE STLMLC STLMLC [id number] Co mmon 00:00:00 00:00:00 VISIT EST [facility] LEVEL 3 [facility] 2021-12-10 2021-12-10 (TEL) STLMLC STLMLC [id number] Co mmon 00:00:00 00:00:00 [facility] 2021-12-01 2021-12-01 (TEL) STLMLC STLMLC [id number] Co mmon 00:00:00 00:00:00 [facility] 2021-11-30 2021-11-30 (TEL) STLMLC STLMLC [id number] Co mmon 00:00:00 00:00:00 [facility] 2021-11-26 2021-11-26 OFFICE STLMLC STLMLC [id number] Co mmon 00:00:00 00:00:00 VISIT [place] [facility] PT LEVEL 3 - [facility] 2021-11-12 2021-11-12 (TEL) STLMLC STLMLC [id number] Co mmon 00:00:00 00:00:00 [facility] 2021-11-09 2021-11-09 OFFICE STLMLC STLMLC [id number] Co mmon 00:00:00 00:00:00 V[facility]IT [facility] - [facility] LEVEL 4 [facility] 2021-10-27 2021-10-27 (TEL) STLMLC STLMLC [id number] Co mmon 00:00:00 00:00:00 [facility] 2021-04-07 2021-04-07 OFFICE STLMLC STLMLC [id number] Co mmon 00:00:00 00:00:00 VISIT [facility] PT - [facility]I LEVEL 4 [facility] 2021-04-07 2021-04-07 SUB ANNUAL STLMLC STLMLC [id number] Common 00:00:00 00:00:00 MCR [facility] VISIT [facility] 2021-03-05 2021-03-05 (TEL) STLMLC STLMLC [id number] Co mmon 00:00:00 00:00:00 [facility] 2021-01-08 2021-01-08 (TEL) STLMLC STLMLC [id number] Co mmon 00:00:00 00:00:00 [facility] 2020-10-07 2020-10-07 Outpatient STLMLC STLMLC [id number] Common 00:00:00 00:00:00 [facility] 2020-10-01 2020-10-01 Outpatient STLMLC STLMLC [id number] Common 00:00:00 00:00:00 [facility] 2020-07-09 2020-07-09 Outpatient STLMLC STLMLC [id number] Common 00:00:00 00:00:00 [facility] 2020-04-10 2020-04-10 Outpatient STLMLC STLMLC [id number] Common 00:00:00 00:00:00 [facility] 2020-03-11 2020-03-11 Outpatient STLMLC STLMLC [id number] Common 00:00:00 00:00:00 [facility] 2020-03-07 2020-03-07 Outpatient STLMLC STLMLC [id number] Common 00:00:00 00:00:00 [facility] 2020-03-06 2020-03-06 Outpatient STLMLC STLMLC [id number] Common 00:00:00 00:00:00 [facility] 2020-01-09 2020-01-09 Outpatient STLMLC STLMLC [id number] Common 00:00:00 00:00:00 [facility] 2020-01-09 2020-01-09 Outpatient STLMLC STLMLC [id number] Common 00:00:00 00:00:00 [facility] 2019-11-30 2019-11-30 [id number] Common 14:25:00 14:25:[address] [place] [facility] 2019-10-08 2019-10-08 [facility] [id number] Common 17:59:00 17:59:[address] [place] [address] [facility] 2019-10-08 2019-10-08 [facility] [id number] Common 14:15:00 14:15:[address] [place] [address] [facility] 2019-08-31 2019-08-31 [facility] [id number] Common 13:00:00 13:00:00 [facility] [place] [facility] 2019-07-09 2019-07-09 [facility] [id number] Common 14:15:00 14:15:[address] [place] [facility] 2019-07-02 2019-07-02 [facility] [id number] Common 13:09:00 13:09:[address] [place] [facility] 2019-06-29 2019-06-29 [facility] [id number] Common 09:32:00 09:32:[address] [place] [facility] 2019-06-13 2019-06-13 [facility] [id number] Common 09:02:00 09:02:[address] [place] [facility] 2019-05-17 2019-05-17 [facility] [id number] Common 13:15:00 13:15:[address] [place] [facility] 2019-04-06 2019-04-06 [facility] [id number] Common 10:30:00 10:30:[address] [place] [facility] 2019-03-30 2019-03-30 [facility] [id number] Common 08:13:00 08:13:[address] [facility] 2019-03-01 2019-03-01 [facility] [id number] Common 13:00:00 13:00:00 t [facility] [place] [facility] 2019-01-03 2019-01-03 [facility] [id number] Common 14:15:00 14:15:[address] [facility] 2018-11-28 2018-11-28 [facility] [id number] Common 14:30:00 14:30:00 t [facility] [place] [facility] - [facility] 2018-11-22 2018-11-22 [facility] [id number] Common 12:23:00 12:23:[address] [facility] 2018-11-09 2018-11-09 [facility] [id number] Common 14:21:00 14:21:00 t Specialty[facility] [place] [facility] - [facility] 2018-10-13 2018-10-13 [facility] [id number] Common 13:30:00 13:30:00 t Specialty[facility] [place] [facility] - [facility] /[facility] 2018-10-03 2018-10-03 [facility] [id number] Common 14:00:00 14:00:[address] [facility] 2018-09-08 2018-09-08 [facility] [id number] Common 14:45:00 14:45:00 t Specialty/[facility] [place] [facility] - [facility] /[facility] 2018-09-04 2018-09-04 [facility] [id number] Common 15:07:00 15:07:[address] [facility] 2018-09-04 2018-09-04 [facility] [id number] Common 09:45:00 09:45:00 t Specialty[facility] [place] [facility] - [facility] 2018-07-13 2018-07-13 [facility] [id number] Common 13:45:00 13:45:00 t Specialty/[facility] [place] [facility] - [facility] /[facility] 2018-07-04 2018-07-04 [facility] [id number] Common 13:45:00 13:45:[address] [facility] 2018-04-06 2018-04-06 [facility] [id number] Common 13:45:00 13:45:[address] [facility] 2018-01-04 2018-01-04 [facility] [id number] Common 16:14:00 16:14:[address] [facility] 2018-01-04 2018-01-04 [facility] [id number] Common 14:30:00 14:30:[address] [facility] 2017-09-12 2017-09-12 [facility] [id number] Common 14:15:00 14:15:[address] [facility] 2017-08-12 2017-08-12 [facility] [id number] Common 16:01:00 16:01:[address] [facility] 2017-07-28 2017-07-28 [facility] [id number] Common 10:26:00 10:26:[address] [facility] 2017-06-15 2017-06-15 [facility] [id number] Common 13:15:00 13:15:[address] [facility] Results This patient has no known results.
[2022-09-07] MEDS ORDERED: NA CHLORIDE 0.9% 1,000 ML ONE ×2 (11:55→14:35)
--- NOTE | 2022-09-07 12:36 | RAD REPORT ---
EXAM DESCRIPTION: CT - Head Brain Wo Cont - 09/07/2022 12:14 pm CLINICAL HISTORY: DIZZINESS COMPARISON: No comparisons TECHNIQUE: Noncontrast head CT images ad were obtained without IV contrast. Multiplanar reformats we re generated and reviewed. All CT scans are performed using dose optimization technique as appropriate and may include automated exposure control or mA/KV adjustment according to patient size. FINDINGS: No intracranial hemorrhage, mass, or edema. Midline structures are unremarkable. Moderate diffuse parenchymal volume loss. Patchy periventricular and deep white matter hypodensities, nonspecific, but suggestive of chronic sm all vessel ischemic changes. Tsai-white matter differentiation is preserved, without evidence of acute infarct. No abnormal extra- axial fluid collections. Mastoid air cells and visualized portions of the paranasal sinuses are clear. No acute bony findings. IMPRESSION: No evidence of an acute intracranial process. Diffuse parenchymal volume loss, and presumed chronic small vessel ischemic changes.
[2022-09-07 12:43] LABS: Absolute Lymphocytes (CBC) 0.6 K/uL (0.7-4.9); Hematocrit 34.7 % (36.0-45.0); Lymphocytes % 6.4 % (15.3-44.8); MCV 88.7 fL (80-100); MPV 6.8 fL (7.6-11.3); RBC Red Blood Cell Count 3.91 M/uL (3.86-4.86)
[2022-09-07 12:50] LABS: Protime INR 1.2
[2022-09-07 13:04] LABS: Albumin 3.5 g/dL (3.4-5.0); Bilirubin Direct 0.1 mg/dL (0-0.2); Bilirubin Indirect, Calculated 0.2 mg/dL (0.2-0.8); Bilirubin Total 0.3 mg/dL (0.2-1.0); Magnesium 2.3 mg/dL (1.6-2.4); Potassium 3.9 mEq/L (3.5-5.1); Protein, Total 7.4 g/dL (6.4-8.2); Troponin High Sensitivity 10.9 pg/mL (<58.9)
--- NOTE | 2022-09-07 13:23 | RAD REPORT ---
EXAM DESCRIPTION: Julieta Single View09/07/2022 12:46 pm CLINICAL HISTORY: cough COMPARISON: 2020 FINDINGS: The lungs appear clear of acute infiltrate. The heart is normal size IMPRESSION: No acute abnormalities displayed
[2022-09-07 14:11] LABS: Specific Gravity 1.005 (1.005-1.030); Urine Bacteria None Seen /HPF (<20); Urine Bilirubin NEGATIVE (Negative); Urine Blood Trace (Negative); Urine Clarity Clear (Clear); Urine Color Colorless (Yellow); Urine Glucose NEGATIVE (Negative); Urine Protein NEGATIVE (Negative); Urine RBC <5 /HPF (None Seen); Urine Urobilinogen Normal (Normal); Urine pH 6.5 (5.0-7.0)
[2022-09-07] MEDS ORDERED: CEFTRIAXONE 1000 MG/VIAL ONE (14:35)
[2022-09-07] MEDS ORDERED: HYDROCORTISONE SUC 100 MG INJ ONE (14:35)
[2022-09-07] MEDS ORDERED: NA CHLORIDE 0.9% 50 ML ONE (14:36)
--- NOTE | 2022-09-07 14:37 | EDPHYS ---
Physician Documentation [facility] Name: Jody Morrison Age: 82 yrs Sex: Female : 1940 Arrival Date: 09/07/2022 Time: 11:30 Bed 3 Private MD: ED Physician Sukhwinder Healy HPI: 09/07 14:21 This 82 yrs old Female presents to ER via EMS with complaints of SLEEPINESS. vanessa 14:21 weak, altered. The patient presents with decreased mental status, decreased vanessa responsiveness, trouble concentrating. Onset: The symptoms/episode began/occurred 3 day(s) ago. Possible causes: head injury, low blood sugar, seizure, sepsis, unknown. Associated signs and symptoms: Pertinent positives: confusion, dizziness. Current symptoms: In the emergency department the patient's symptoms are unchanged from the initial presentation, despite home interventions. Patient's baseline: Neuro: alert and fully oriented. The patient has experienced similar episodes in the past, a few times. Historical: - Allergies: 13:06 Sulfa (Sulfonamide Antibiotics); cm10 13:06 PHENOTHIAZINES; cm10 13:06 NSAIDS; cm10 13:06 Aspirin; cm10 - Home Meds: 11:33 tramadol 50 mg Oral tablet 4 times per day [Active]; rosuvastatin 10 mg oral tablet bp daily [Active]; lisinopril 2.5 mg Oral tablet daily [Active]; duloxetine 30 mg oral capsule,delayed release (e.c.) 2 times per day [Active]; metformin 500 mg Oral Tablet, Extended Release 24 hr 2 times per day [Active]; pregabalin 75 mg Oral capsule 2 times per day [Active]; - PMHx: 11:33 CVA; Fibromyalgia; Herniated disc; Diabetes mellitus; Hypertensive disorder; bp - Immunization history:: Adult Immunizations up to date. - Social history:: Smoking status: Patient denies any tobacco usage or history of. - Family history:: not pertinent. ROS: 14:21 Constitutional: Negative for fever, chills, and weight loss, Eyes: Negative for injury, vanessa pain, redness, and discharge, ENT: Negative for injury, pain, and discharge, Neck: Negative for injury, pain, and swelling, Cardiovascular: Negative for chest pain, palpitations, and edema, Respiratory: Negative for shortness of breath, cough, wheezing, and pleuritic chest pain, Abdomen/GI: Negative for abdominal pain, nausea, vomiting, diarrhea, and constipation, Back: Negative for injury and pain, : Negative for injury, bleeding, discharge, and swelling, MS/Extremity: Negative for injury and deformity, Skin: Negative for injury, rash, and discoloration, Psych: Negative for depression, anxiety, suicide ideation, homicidal ideation, and hallucinations, Allergy/Immunology: Negative for hives, rash, and allergies, Endocrine: Negative for neck swelling, polydipsia, polyuria, polyphagia, and marked weight changes, Hematologic/Lymphatic: Negative for swollen nodes, abnormal bleeding, and unusual bruising. Exam: 14:21 Constitutional: This is a well developed, well nourished patient who is awake, alert, vanessa and in no acute distress. Head/Face: Normocephalic, atraumatic. Eyes: Pupils equal round and reactive to light, extra-ocular motions intact. Lids and lashes normal. Conjunctiva and sclera are non-icteric and not injected. Cornea within normal limits. Periorbital areas with no swelling, redness, or edema. ENT: Nares patent. No nasal discharge, no septal abnormalities noted. Tympanic membranes are normal and external auditory canals are clear. Oropharynx with no redness, swelling, or masses, exudates, or evidence of obstruction, uvula midline. Mucous membranes moist. Neck: Trachea midline, no thyromegaly or masses palpated, and no cervical lymphadenopathy. Supple, full range of motion without nuchal rigidity, or vertebral point tenderness. No Meningismus. Chest/axilla: Normal chest wall appearance and motion. Nontender with no deformity. No lesions are appreciated. Cardiovascular: Regular rate and rhythm with a normal S1 and S2. No gallops, murmurs, or rubs. Normal PMI, no JVD. No pulse deficits. Respiratory: Lungs have equal breath sounds bilaterally, clear to auscultation and percussion. No rales, rhonchi or wheezes noted. No increased work of breathing, no retractions or nasal flaring. Abdomen/GI: Soft, non-tender, with normal bowel sounds. No distension or tympany. No guarding or rebound. No evidence of tenderness throughout. Back: No spinal tenderness. No costovertebral tenderness. Full range of motion. Female : Normal external genitalia. Skin: Warm, dry with normal turgor. Normal color with no rashes, no lesions, and no evidence of cellulitis. MS/ Extremity: Pulses equal, no cyanosis. Neurovascular intact. Full, normal range of motion. Psych: Awake, alert, with orientation to person, place and time. Behavior, mood, and affect are within normal limits. 14:21 Neuro: Orientation: is normal, appropriate for stated age, no acute changes, Mentation: slow to respond, Memory: immediate memory is intact, remote memory is impaired, recent memory is impaired, Motor: moves all fours, Sensation: appropriate no acute changes, Gait: not tested. Deep tendon reflexes are 1 (trace) + in the bilateral brachioradialis, bicep, tricep and patellar and Achilles tendons, seizure activity, is not displayed by the patient. 14:30 ECG was reviewed by the Attending Physician. vanessa Vital Signs: 11:30 BP 134 / 73; Pulse 56; Resp 16; Pulse Ox 97% on R/A; cm10 11:31 BP 150 / 70; Pulse 65; Resp 15; Temp 97.7; Pulse Ox 96% ; bp 12:45 BP 136 / 71; Pulse 62; Resp 16; Pulse Ox 100% on R/A; cm10 13:00 BP 163 / 76; Pulse 62; Resp 16; Pulse Ox 100% on R/A; cm10 13:30 BP 145 / 80; Pulse 70; Resp 16; Pulse Ox 100% on R/A; cm10 14:00 BP 149 / 79; Pulse 65; Resp 16; Pulse Ox 100% on R/A; cm10 14:30 BP 122 / 74; Pulse 63; Resp 16; Pulse Ox 99% on R/A; cm10 14:45 BP 139 / 74; Pulse 65; Resp 16; Pulse Ox 100% on R/A; cm10 15:45 BP 151 / 71; Pulse 55; Resp 16; Pulse Ox 100% on R/A; cm10 16:00 BP 135 / 71; Pulse 59; Resp 16; Pulse Ox 100% on R/A; cm10 16:30 BP 131 / 70; Pulse 64; Resp 16; Pulse Ox 97% on R/A; cm10 17:00 BP 139 / 81; Pulse 71; Resp 16; Pulse Ox 95% on R/A; cm10 17:30 BP 151 / 89; Pulse 67; Resp 18; Pulse Ox 100% ; cm10 NIH Stroke Scale Scores: 14:21 NIHSS Score: 1 vanessa MDM: 11:34 Patient medically screened. vanessa 14:28 Differential Diagnosis altered mental status, sepsis, flu. Differential Diagnosis: CVA, vanessa electrolyte abnormality, hypoglycemia, intracranial bleed, pneumonia, TIA, UTI, volume depletion. Data reviewed: vital signs, nurses notes, lab test result(s), EKG, radiologic studies, CT scan, MRI, plain films. Consideration of Admission/Observation Patient was admitted/placed on observation. Escalation of care including admission/observation considered. I considered the following discharge prescriptions or medication management in the emergency department Medications were administered in the Emergency Department. See MAR. Independent interpretation of the following test(s) in the Emergency Department EKG: See my EKG interpretation above. Test considered but Not performed:. Care significantly affected by the following chronic conditions: Diabetes, Hypertension, cva, fibromyalgia. 09/07 11:36 Order name: Basic Metabolic Panel; Complete Time: 13:58 [facility] 09/07 11:36 Order name: CBC with Diff; Complete Time: 13:58 [facility] 09/07 11:36 Order name: LFT's; Complete Time: 13:58 [facility] 09/07 11:36 Order name: Magnesium; Complete Time: 13:58 [facility] 09/07 11:36 Order name: NT PRO-BNP; Complete Time: 13:58 [facility] 09/07 11:36 Order name: PT-INR; Complete Time: 13:58 [facility] 09/07 11:36 Order name: Troponin HS; Complete Time: 13:58 [facility] 09/07 11:36 Order name: Urinalysis w/ reflexes; Complete Time: 14:19 [facility] 09/07 11:36 Order name: Blood Culture Adult (2) [facility] 09/07 11:36 Order name: Lactate w/ 2H reflex if indic.; Complete Time: 13:58 [facility] 09/07 14:20 Order name: Urine Culture [facility] 09/07 16:27 Order name: CBC with Automated Diff [facility] 09/07 16:27 Order name: Magnesium [facility] 09/07 16:27 Order name: Phosphorus [facility] 09/07 16:27 Order name: T4 Free [facility] 09/07 16:27 Order name: Thyroid Stimulating Hormone [facility] 09/07 16:27 Order name: Urinalysis w/ reflexes [facility] 09/07 16:27 Order name: Basic Metabolic Panel [facility] 09/07 16:27 Order name: Basic Metabolic Panel [facility] 09/07 16:27 Order name: Lipid Profile [facility] 09/07 16:27 Order name: Lipid Profile [facility] 09/07 18:00 Order name: Glucose, Ancillary Testing [facility] 09/07 11:36 Order name: XRAY Chest (1 view); Complete Time: 13:58 [facility] 09/07 11:36 Order name: CT Head Brain wo Cont; Complete Time: 13:58 [facility] 09/07 14:34 Order name: Brain Wo Cont; Complete Time: 16:31 [facility] 09/07 14:37 Order name: US Carotid Artery Bilateral [facility] 09/07 11:36 Order name: EKG; Complete Time: 11:36 [facility] 09/07 16:29 Order name: NPO [facility] 09/07 11:36 Order name: Cardiac monitoring; Complete Time: 12:40 [facility] 09/07 11:36 Order name: EKG - Nurse/Tech; Complete Time: 12:40 [facility] 09/07 11:36 Order name: IV Saline Lock; Complete Time: 12:39 [facility] 09/07 11:36 Order name: Labs collected and sent; Complete Time: 12:39 [facility] 09/07 11:36 Order name: O2 Per Protocol; Complete Time: 11:36 [facility] 09/07 11:36 Order name: O2 Sat Monitoring; Complete Time: 11:36 [facility] EC:30 Rate is 663 beats/min. Rhythm is regular. QRS [place] is Normal. MA interval is normal. [facility] QRS interval is normal. QT interval is normal. No Q waves. T waves are Normal. No ST changes noted. Clinical impression: NSR w/ Non-specific ST/T Changes and No evidence of ischemia. Interpreted by me. Reviewed by me. Administered Medications: 12:50 Drug: NS 0.9% IV 1000 ml Route: IV; Rate: 1 bolus; Site: left forearm; ll1 14:38 Drug: Solu-CORTEF IVP 100 mg Route: IVP; Site: left forearm; cm10 17:03 Follow up: Response: No adverse reaction cm10 14:38 Drug: NS 0.9% IV 1000 ml Route: IV; Rate: 125 ml/hr; Site: left forearm; cm10 15:49 Drug: Rocephin IV 1 grams Route: IV; Rate: per protocol; Site: left forearm; cm10 17:03 Follow up: Response: No adverse reaction; IV Status: Completed infusion; IV Intake: cm10 1625ml Disposition Summary: 09/07/22 14:37 Hospitalization Ordered Hospitalization Status: Inpatient Admission vanessa Provider: Donaldo Erazo cha Location: Telemetry/MedSurg (Inpatient) vanessa Condition: Fair vanessa Problem: new vanessa Symptoms: have improved vanessa Bed/Room Type: Standard [facility] Room Assignment: 405(09/07/22 17:21) dw Diagnosis - Altered mental status, unspecified vanessa - Weakness vanessa Forms: - Medication Reconciliation Form vanessa - SBAR form vanessa NIH Stroke Scale - NIH Stroke Score Date: 09/07/2022 Time: 14:21 Total Score = 1 10. Dysarthria (speech clarity - read or repeat words) - 0(Normal) 11. Extinction and Inattention (visual/tactile/auditory/spatial/personal) - 0(No abnormality) 1a. Level of Consciousness (LOC) - 0(Alert) 1b. Level of Consciousness (LOC) (Month \T\ Age) - 1(One) 1c. LOC Commands (Open \T\ Closes Eyes/Tool Checker) - 0(Both) 2. Best Gaze (Lateral Gaze Paresis) - 0(Normal) 3. Visual Field Loss - 0(No visual loss) 4. Facial Palsy - 0(Normal) 5a. Left Arm: Motor (10-second hold) - 0(No drift) 5b. Right Arm: Motor (10-second hold) - 0(No drift) 6a. Left Leg: Motor (5-second hold - always test supine) - 0(No drift) 6b. Right Leg: Motor (5-second hold - always test supine) - 0(No drift) 7. Limb Ataxia (finger/nose \T\ heel/kelsey - test with eyes open) - 0(Absent) 8. Sensory Loss (pinprick arms/legs/face) - 0(Normal) 9. Best Language: Aphasia (description/naming/reading) - 0(No aphasia) Initials: vanessa Signatures: Dispatcher [employer] Larissa Neely RN RN dw Anderson, Corey, MD MD cha Peltier, Brian, RN RN bp Lewis, Lynsay, RN RN ll1 Carlos, Radha, RN RN cm10 Corrections: (The following items were deleted from the chart) 13:07 11:33 Allergies: NKA; bp cm10 14:32 14:30 MR STROKE PROTOCOL+MRI.MIA.ISRA ordered. EDMS EDMS 17: 14:37 vanessa majano
--- NOTE | 2022-09-07 14:37 | ER ---
Nurse's Notes [facility] Name: Jody Morrison Age: 82 yrs Sex: Female : 1940 Arrival Date: 09/07/2022 Time: 11:30 Bed 3 Private MD: Diagnosis: Altered mental status, unspecified;Weakness Presentation: 09/07 11:31 Chief complaint: EMS states: FAMILY STATES SHE'S SLEEPIER THAN USUAL SINCE TAKING bp LYRICA. Coronavirus screen: At this time, the client does not indicate any symptoms associated with coronavirus-19. Ebola Screen: No symptoms or risks identified at this time. Initial Sepsis Screen: Does the patient meet any 2 criteria? No. Patient's initial sepsis screen is negative. Does the patient have a suspected source of infection? No. Patient's initial sepsis screen is negative. Risk Assessment: Do you want to hurt yourself or someone else? Patient reports no desire to harm self or others. Onset of symptoms is unknown. Care prior to arrival: IV initiated. 20 GA, in the left forearm, Glucose check: 124. 11:31 Method Of Arrival: EMS: [facility] bp 11:31 Acuity: BAUDILIO 3 bp 12:07 Chief complaint: Patient's son or daughter states: Pt has been more sleepier than cm10 normal. Patient started taking lyrica again on Tuesday. Per patient's caregiver today patient was more confused, did not know where she was and did not recognize her caregiver. Upon arrival to the ED patient sleeping but easy to arouse. Triage Assessment: 11:33 General: Appears in no apparent distress. Behavior is cooperative, appropriate for age, bp drowsy. Pain: Denies pain. EENT: No deficits noted. Neuro: Level of Consciousness is lethargic, Oriented to Appropriate for age. Cardiovascular: No deficits noted. Respiratory: No deficits noted. GI: No signs and/or symptoms were reported involving the gastrointestinal system. : No signs and/or symptoms were reported regarding the genitourinary system. Derm: No deficits noted. Musculoskeletal: No deficits noted. Historical: - Allergies: 13:06 Sulfa (Sulfonamide Antibiotics); cm10 13:06 PHENOTHIAZINES; cm10 13:06 NSAIDS; cm10 13:06 Aspirin; cm10 - Home Meds: 11:33 tramadol 50 mg Oral tablet 4 times per day [Active]; rosuvastatin 10 mg oral tablet bp daily [Active]; lisinopril 2.5 mg Oral tablet daily [Active]; duloxetine 30 mg oral capsule,delayed release (e.c.) 2 times per day [Active]; metformin 500 mg Oral Tablet, Extended Release 24 hr 2 times per day [Active]; pregabalin 75 mg Oral capsule 2 times per day [Active]; - PMHx: 11:33 CVA; Fibromyalgia; Herniated disc; Diabetes mellitus; Hypertensive disorder; bp - Immunization history:: Adult Immunizations up to date. - Social history:: Smoking status: Patient denies any tobacco usage or history of. - Family history:: not pertinent. Screenin:38 [facility] ED Fall Risk Assessment (Adult) History of falling in the last 3 months, bp including since admission No falls in past 3 months (0 pts). Abuse screen: Denies threats or abuse. Denies injuries from another. Nutritional screening: No deficits noted. Tuberculosis screening: No symptoms or risk factors identified. Assessment: 11:38 General: SEE TRIAGE NOTE. EENT: Eyes PUPILS RESTRICTED. bp 12:05 Neuro: Level of Consciousness is lethargic, Pupils are pinpoint. cm10 12:09 Cardiovascular: No deficits noted. Respiratory: Airway is patent Respiratory effort is cm10 even, unlabored, Respiratory pattern is regular, symmetrical. 14:28 Reassessment: No changes from previously documented assessment. Patient and/or family cm10 updated on plan of care and expected duration. Pain level reassessed. 17:02 Reassessment: No changes from previously documented assessment. Patient and/or family cm10 updated on plan of care and expected duration. Pain level reassessed. 17:52 Reassessment: Patient states symptoms have improved. Pt more awake at this time. cm10 Patient able to state her name and and is able to identify her visitors appropriately. . Vital Signs: 11:30 BP 134 / 73; Pulse 56; Resp 16; Pulse Ox 97% on R/A; cm10 11:31 BP 150 / 70; Pulse 65; Resp 15; Temp 97.7; Pulse Ox 96% ; bp 12:45 BP 136 / 71; Pulse 62; Resp 16; Pulse Ox 100% on R/A; cm10 13:00 BP 163 / 76; Pulse 62; Resp 16; Pulse Ox 100% on R/A; cm10 13:30 BP 145 / 80; Pulse 70; Resp 16; Pulse Ox 100% on R/A; cm10 14:00 BP 149 / 79; Pulse 65; Resp 16; Pulse Ox 100% on R/A; cm10 14:30 BP 122 / 74; Pulse 63; Resp 16; Pulse Ox 99% on R/A; cm10 14:45 BP 139 / 74; Pulse 65; Resp 16; Pulse Ox 100% on R/A; cm10 15:45 BP 151 / 71; Pulse 55; Resp 16; Pulse Ox 100% on R/A; cm10 16:00 BP 135 / 71; Pulse 59; Resp 16; Pulse Ox 100% on R/A; cm10 16:30 BP 131 / 70; Pulse 64; Resp 16; Pulse Ox 97% on R/A; cm10 17:00 BP 139 / 81; Pulse 71; Resp 16; Pulse Ox 95% on R/A; cm10 17:30 BP 151 / 89; Pulse 67; Resp 18; Pulse Ox 100% ; cm10 NIH Stroke Scale Scores: 14:21 NIHSS Score: 1 vanessa ED Course: 11:25 Initial lab(s) drawn, by me, sent to lab. First set of blood cultures drawn. ll1 11:31 Patient arrived in ED. bp 11:33 Triage completed. bp 11:33 Arm band placed on. bp 11:34 Sukhwinder Healy MD is Attending Physician. vanessa 11:38 Patient has correct armband on for positive identification. Bed in low position. Call bp light in reach. Side rails up X2. 11:38 Maintain EMS IV. Dressing intact. Good blood return noted. Site clean \T\ dry. Gauge \T\ bp site: 20 GA LEFT FA. 11:41 Radha Gonzalez, RN is Primary Nurse. cm10 12:[address] cm10 12:14 CT Head Brain wo Cont In Process Unspecified. EDMS 12:47 XRAY Chest (1 view) In Process Unspecified. EDMS 13:59 ED physician to see patient. cm10 14:36 Donaldo Erazo MD is Hospitalizing Provider. vanessa 15:04 Patient moved to MRI via stretcher. cm10 15:36 Brain Wo Cont In Process Unspecified. EDMS 16:20 US Carotid Artery Bilateral In Process Unspecified. EDMS 17:35 No provider procedures requiring assistance completed. Patient admitted, IV remains in cm10 place. 17:43 Report given to DAX Sung. [facility] Administered Medications: 12:50 Drug: NS 0.9% IV 1000 ml Route: IV; Rate: 1 bolus; Site: left forearm; ll1 14:38 Drug: Solu-CORTEF IVP 100 mg Route: IVP; Site: left forearm; cm10 17:03 Follow up: Response: No adverse reaction 10 14:38 Drug: NS 0.9% IV 1000 ml Route: IV; Rate: 125 ml/hr; Site: left forearm; cm10 15:49 Drug: Rocephin IV 1 grams Route: IV; Rate: per protocol; Site: left forearm; 10 17:03 Follow up: Response: No adverse reaction; IV Status: Completed infusion; IV Intake: cm10 1625ml Medication: 11:38 VIS not applicable for this client. bp Intake: 17:03 IV: 1625ml; Total: 1625ml. [facility] Outcome: 14:37 Decision to Hospitalize by Provider. vanessa 17:43 Admitted to Tele accompanied by nurse, via stretcher, room 405, Report called to cmEugene Grover RN 17:43 Condition: good 17:43 Instructed on the need for admit. 18:28 Patient left the ED. bp NIH Stroke Scale - NIH Stroke Score Date: 09/07/2022 Time: 14:21 Total Score = 1 10. Dysarthria (speech clarity - read or repeat words) - 0(Normal) 11. Extinction and Inattention (visual/tactile/auditory/spatial/personal) - 0(No abnormality) 1a. Level of Consciousness (LOC) - 0(Alert) 1b. Level of Consciousness (LOC) (Month \T\ Age) - 1(One) 1c. LOC Commands (Open \T\ Closes Eyes/Line Production Cook) - 0(Both) 2. Best Gaze (Lateral Gaze Paresis) - 0(Normal) 3. Visual Field Loss - 0(No visual loss) 4. Facial Palsy - 0(Normal) 5a. Left Arm: Motor (10-second hold) - 0(No drift) 5b. Right Arm: Motor (10-second hold) - 0(No drift) 6a. Left Leg: Motor (5-second hold - always test supine) - 0(No drift) 6b. Right Leg: Motor (5-second hold - always test supine) - 0(No drift) 7. Limb Ataxia (finger/nose \T\ heel/kelsey - test with eyes open) - 0(Absent) 8. Sensory Loss (pinprick arms/legs/face) - 0(Normal) 9. Best Language: Aphasia (description/naming/reading) - 0(No aphasia) Initials: vanessa Signatures: Dispatcher [employer] EDSukhwinder Monet MD MD cha Peltier, Brian RN RN Graciela Redding RN RN ll1 Radha Gonzalez RN RN cm10 Corrections: (The following items were deleted from the chart) 12:10 12:05 Neuro: Level of Consciousness is lethargic, Pupils are pinpoint, cm10 cm10 12:10 12:06 General: cm10 cm10 13:07 11:33 Allergies: NKA; bp cm10
--- NOTE | 2022-09-07 15:48 | RAD REPORT ---
EXAM DESCRIPTION: MRI - Brain Wo Cont - 09/07/2022 3:35 pm CLINICAL HISTORY: Dizziness COMPARISON: Head CT September 07, 20222016 MRI TECHNIQUE: Axial, sagittal, and coronal magnetic resonance images of the brain were obtained. FINDINGS: Moderate signal within periventricular, deep, brainstem and subcortical white matter proba kartik ischemic changes secondary to small vessel disease. This is without significant change from 2017 Diffusion-weighted/ADC mapping does not reveal evidence of acute infarction. The ventricles are normal caliber. Moderate cerebral atrophy An extra-axial fluid collection is not noted. Fluid within the sinuses/mastoids is not seen IMPRESSION: No acute intracranial abnormality noted
[2022-09-07] MEDS: CEFTRIAXONE 1,000 MG in NA CHLORIDE 0.9% 50 ML IVPB SCH (16:00)
[2022-09-07] MEDS ORDERED: ACETAMINOPHEN 325 MG TABLET PO PRN (16:20)
[2022-09-07] MEDS ORDERED: ONDANSETRON 4 MG/2 ML VIAL IV PRN (16:23)
[2022-09-07] MEDS: INSULIN -REGULAR HUMAN 50 UNIT/0.5 ML ML SQ SCH ×2 (16:30→20:30)
--- NOTE | 2022-09-07 16:31 | P.HP ---
Certification for Inpatient Patient admitted to: Inpatient With expected LOS: >2 Midnights Patient will require the following post-hospital care: None Practitioner: I am a practitioner with admitting privileges, knowledge of patient current condition, hospital course, and medical plan of care. Services: Services provided to patient in accordance with Admission requirements found in Title 42 Section 412.3 of the Code of Federal Regulations Patient History Date of Service: 09/07/22 Reason for admission: Altered mental status History of Present Illness: Patient is an 82-year-old female with a past medical history significant for hyperlipidemia, hypertension, DM 2, fibromyalgia, CVA who presents with complaint of altered mental status. Family reported that patient has a caregiver that comes every night to take carte of patient. Patient lives alone and able to take care of her needs during the day. Caregiver informed patient's son that patient was confused with decreased responsiveness this morning Family reported that when they interacted with patient patient was noted to be confused and lethargic. Per family report patient was recently started on Lyrica 3 days ago and 5 tablets were noted to have been taken by patient since medication was started. No other signs and symptoms reported. Symptoms are aggravated or relieved by nothing. Patient was brought to the hospital for medical evaluation. At time of assessment patient unresponsive to verbal commands. Allergies Sulfa (Sulfonamide Antibiotics) Allergy (Verified 05/28/21 13:48) Nausea/Vomiting Home Medications: Aspirin [Aspirin EC 81 MG] 1 tab PO BEDTIME 10/19/19 Baclofen 10 mg PO BEDTIME 10/19/19 Cholecalciferol (Vitamin D3) [Vitamin D3] 1,250 mcg PO DAILY 10/19/19 Levothyroxine [Synthroid] 50 mcg PO [id number] 10/19/19 Lisinopril [Zestril] 2.5 mg PO DAILY 10/19/19 Metformin ER [Glucophage ER] 500 mg PO DAILY 10/19/19 Rosuvastatin [Crestor] 10 mg PO BEDTIME 10/19/19 Ubidecarenone [Co Q-10] 100 mg PO DAILY 10/19/19 Albuterol Inhaler [Ventolin Inhaler*] 1 gm PO PRN 10/23/19 Chlorpheniramine/Dextromethorp [Coricidin Hbp Cough & Cold Tab] 1 each PO PRN PRN 05/28/21 Fluticasone/Vilanterol [Breo Ellipta 100-25 Mcg INH] 1 each IH DAILY 05/28/21 Multivitamin [One-Daily Multi-Vitamin] 1 each PO DAILY 05/28/21 Zinc 50 mg PO DAILY 05/28/21 - Past Medical/Surgical History -: HTN -: DM 2 -: Fibromyalgia -: Hyperlipidemia -: CVA Past Surgical History: Reviewed- Non-Contributory - Family History Family History: Reviewed- Non-Contributory - Social History Smoking Status: Unknown if ever smoked Alcohol use: No CD- Drugs: No Caffeine use: No Place of Residence: Home Review of Systems is unable to be obtained (Unable to assess. Patient not responding to commands.) Physical Examination - Physical Exam General: Alert, In no apparent distress, Cooperative, Confused, Unresponsive HEENT: Atraumatic, PERRLA, Mucous membr. moist/pink, EOMI, Sclerae nonicteric Neck: Supple, 2+ carotid pulse no bruit, No LAD, Without JVD or thyroid abnormality Respiratory: Clear to auscultation bilaterally, Normal air movement Cardiovascular: No edema, Regular rate/rhythm, Normal S1 S2 Capillary refill: <2 Seconds Gastrointestinal: Normal bowel sounds, Soft and benign, No tenderness Musculoskeletal: No clubbing, No swelling, No tenderness, Other (bruising) Integumentary: No rashes, No tenderness/swelling Neurological: Normal speech, Normal tone, Normal affect Lymphatics: No axilla or inguinal lymphadenopathy - Studies Laboratory Data (last 24 hrs) 09/07/22 12:25: PT 13.2 H, INR 1.20 09/07/22 12:25: WBC 9.30, Hgb 11.2 L, Hct 34.7 L, Plt Count 390 09/07/22 12:25: Sodium 135 L, Potassium 3.9, BUN 16, Creatinine 0.89, Glucose 86, Magnesium 2.3, Total Bilirubin 0.3, AST 40 H, ALT 39, Alkaline Phosphatase 98 Assessment and Plan - Plan --Acute metabolic encephalopathy. Likely secondary to side effects of medication versus UTI. MRI brain unremarkable for any acute intracranial abnormality. Continue supportive care. --UTI POA. Urine cultures positive for leukocyte esterase. Continue antibiotics. --DM2. BS monitoring with sliding scale insulin. --Fibromyalgia. We will hold off on home medications. Continue supportive care. --History of CVA. Continue aspirin and statin when appropriate. --Hyperlipidemia. Continue statin when appropriate. --Hypertension. Poorly controlled. We will manage BP with hydralazine as needed. -- Anemia of chronic disease. H&H stable. We will continue to monitor hemoglobin if less than 7.0. --CKD 2. Stable. We will continue to monitor renal functions. --DVT prophylaxis with Lovenox subQ. Discharge Plan: Home Plan to discharge in: Greater than 2 days - Advance Directives Does patient have a Living Will: Yes Does patient have a Durable POA for Healthcare: Yes - Code Status/Comfort Care Code Status Assessed: Yes Physician Review: Patient Assessed, Agree with Above Assessment and Plan Critical Care: No
--- NOTE | 2022-09-07 16:41 | RAD REPORT ---
EXAM DESCRIPTION: USCarotid Artery Bilateral09/07/2022 4:18 pm CLINICAL HISTORY: Dizziness/declining state. Prior CVA COMPARISON: 2011 FINDINGS: The velocity of the right internal carotid artery equals 148 cm/sec. The right ICA/CCA rat io 3.8. The elevated velocity of the left internal carotid artery most likely is secondary to the art radha being tortuous The velocity of the left internal carotid artery equals 57 cm/sec. The left ICA/CCA ratio 1 Mild plaque is present within the carotid arteries. The vertebral arteries demonstrate antegrade flow IMPRESSION: Mild plaque within the carotid arteries. NASCET criteria used. Mild 0-49% stenosis Moderate 50-69% stenosis Severe 70-99% stenosis
[2022-09-07] MEDS ORDERED: HYDRALAZINE HCL 20 MG/ML VIAL IV PRN (16:53)
[2022-09-07] MEDS: NA CHLORIDE 0.9% 1,000 ML IV SCH (18:31)
[2022-09-07 18:39] VITALS: BMI 19.7
[2022-09-07 20:38] LABS: Magnesium 2.1 mg/dL (1.6-2.4); Phosphorus 3.5 mg/dL (2.5-4.9); Thyroid Stimulating Hormone 0.553 uIU/mL (0.358-3.740)
[2022-09-07] MEDS ORDERED: PNEUMOCOCCAL VACCINE 0.5 ML IMVAC ONE (21:00)
[2022-09-07 21:04] LABS: Absolute Lymphocytes (CBC) 0.3 K/uL (0.7-4.9); Hematocrit 33.1 % (36.0-45.0); Lymphocytes % 4.9 % (15.3-44.8); MCV 88.8 fL (80-100); MPV 7.5 fL (7.6-11.3); RBC Red Blood Cell Count 3.73 M/uL (3.86-4.86)
[2022-09-07 21:25] LABS: Blood Morphology Comment NOT SEEN (NOT SEEN); Platelet Estimate ADEQ; White Blood Cell Scan OK (OK)
[2022-09-08] MEDS: INSULIN -REGULAR HUMAN 50 UNIT/0.5 ML ML SQ SCH ×4 (00:30→12:10)
[2022-09-08 03:50] VITALS: O2SAT 99
[2022-09-08 06:10] LABS: Potassium 3.7 mEq/L (3.5-5.1)
[2022-09-08] MEDS: NA CHLORIDE 0.9% 1,000 ML IV SCH (06:44)
[2022-09-08] MEDS: CEFTRIAXONE 1,000 MG in NA CHLORIDE 0.9% 50 ML IVPB SCH (08:04)
[2022-09-08] MEDS ORDERED: ASPIRIN 81 MG CHEWABLE TABLET PO SCH (09:00)
[2022-09-08] MEDS ORDERED: ENOXAPARIN 40 MG/0.4 ML SQ SCH (09:00)
[2022-09-08] MEDS ORDERED: POTASSIUM CL SA 10 MEQ TAB PO ONE (09:00)
[2022-09-08 12:13] VITALS: BP 114/67; TEMP 97.5
--- NOTE | 2022-09-08 14:10 | P.DS ---
Admission Date: 09/07/22 Discharge Date: 09/08/22 Disposition: ROUTINE DISCHARGE Discharge Condition: GOOD Reason for Admission: Altered mental status Consultations: 1. Neurology Hospital Course: DIAGNOSES: # Acute Toxic Metabolic Encephalopathy likely secondary to Pregabalin - resolved # Mild Dementia (A&O 2-3 at baseline per son) - stable # History of Cerebrovascular Accident # Type II Diabetes Mellitus # Hypertension # Hyperlipidemia # Fibromyalgia HOSPITAL COURSE: Ms. Jody Morrison is a pleasant 82-year-old female with a past medical history significant for mild dementia, prior cerebrovascular accident, type 2 diabetes mellitus, hypertension, hyperlipidemia, and fibromyalgia who was admitted to the [facility] on 09/07/2022 for altered mental status. She was admitted to the Medicine service. Prior to presentation, she had recently been started on pregabalin, and per her son, it was unclear how many of the tablets she had taken. Upon further evaluation, her urinalysis was notable for 25 leukocyte esterase. Her chest x-ray revealed, "no acute abnormalities displayed." Her CT head revealed, "no evidence of an acute intracranial process. Diffuse parenchymal volume loss, and presumed chronic small vessel ischemic changes." Her MRI brain revealed, "no acute intracranial abnormality noted." Her carotid ultrasound revealed, "mild plaque within the carotid arteries." Her home medications were held and, over the course of her hospitalization, her mental status improved significantly back to baseline per her son. Neurology was consulted and she was evaluated by Dr. Zelaya. He has cleared her for discharge with outpatient follow-up. He has provided her a prescription for gabapentin 100 mg qHS. Of note, there was concern that she may have had a urinary tract infection. However, it seems unlikely due to the lack of urinary symptoms, negative urinary nitrites, and negative urinary bacteria. Nevertheless, she was given an empiric antibiotic course of cephalexin. On 09/08/2022, she was seen on rounds and deemed medically stable for discharge. She was discharged with instructions to schedule follow-up appointments with her PCP (Dr. Marin) and with Neurology (Dr. Zelaya). She was provided prescriptions for cephalexin and gabapentin. She and her son were given the opportunity to ask questions and reported no further questions. Furthermore, all questions were answered to the best of my ability. A copy of this discharge summary will be sent to the above providers to facilitate continuity of care. Today, I personally spent 25 minutes on her case, of which greater than 50% of the time was spent in patient education, counseling, and coordination of care as described above. Vital Signs/Physical Exam: Temp Pulse Resp BP Pulse Ox 97.5 F 70 16 114/67 98 09/08/22 12:00 09/08/22 12:00 09/08/22 12:00 09/08/22 12:00 09/08/22 12:00 General: Alert, In no apparent distress, Oriented x3 HEENT: Atraumatic, Mucous membr. moist/pink, Sclerae nonicteric Neck: JVD not distended Respiratory: Clear to auscultation bilaterally, Normal air movement Cardiovascular: No edema, Regular rate/rhythm, Normal S1 S2, No gallops, No rubs, No murmurs Gastrointestinal: Normal bowel sounds, Soft and benign, Non-distended, No tenderness, No rebound, No guarding Musculoskeletal: No clubbing Integumentary: No rashes Neurological: Normal speech, Normal affect Laboratory Data at Discharge: WBC 6.70 thou/uL (4.3-10.9) 09/07/22 19:56 Hgb 10.9 g/dL (12.0-15.0) L 09/07/22 19:56 Hct 33.1 % (36.0-45.0) L 09/07/22 19:56 Plt Count 342 thou/uL (152-406) 09/07/22 19:56 PT 13.2 SECONDS (9.5-12.5) H 09/07/22 12:25 INR 1.20 09/07/22 12:25 Sodium 141 mEq/L (136-145) D 09/08/22 05:30 Potassium 3.7 mEq/L (3.5-5.1) 09/08/22 05:30 BUN 16 mg/dL (7-18) 09/08/22 05:30 Creatinine 0.75 mg/dL (0.55-1.02) 09/08/22 05:30 Glucose 78 mg/dL (74-106) 09/08/22 05:30 Phosphorus 3.5 mg/dL (2.5-4.9) 09/07/22 20:00 Magnesium 2.1 mg/dL (1.6-2.4) 09/07/22 20:00 Total Bilirubin 0.3 mg/dL (0.2-1.0) 09/07/22 12:25 AST 40 U/L (15-37) H 09/07/22 12:25 ALT 39 U/L (13-56) 09/07/22 12:25 Alkaline Phosphatase 98 U/L (45-117) 09/07/22 12:25 Triglycerides 46 mg/dL (<150) 09/08/22 05:30 Cholesterol 135 mg/dL (<200) 09/08/22 05:30 HDL Cholesterol 97 mg/dL (40-60) H 09/08/22 05:30 Cholesterol/HDL Ratio 1.39 09/08/22 05:30 Home Medications: Aspirin [Aspirin EC 81 MG] 1 tab PO BEDTIME 10/19/19 Cholecalciferol (Vitamin D3) [Vitamin D3] 1,250 mcg PO DAILY 10/19/19 Levothyroxine [Synthroid*] 50 mcg PO [id number] 10/19/19 Lisinopril [Zestril] 2.5 mg PO DAILY 10/19/19 Metformin ER [Glucophage ER*] 500 mg PO DAILY 10/19/19 Rosuvastatin [Crestor*] 10 mg PO BEDTIME 10/19/19 Ubidecarenone [Co Q-10] 100 mg PO DAILY 10/19/19 Albuterol Inhaler [Ventolin Inhaler*] 1 gm PO PRN 10/23/19 Fluticasone/Vilanterol [Breo Ellipta 100-25 Mcg INH] 1 each IH DAILY 05/28/21 Zinc 50 mg PO DAILY 05/28/21 traMADol HCL [Ultram*] 50 mg PO DAILY 09/07/22 Gabapentin [Neurontin*] 100 mg PO BEDTIME #30 cap 09/08/22 New Medications: Gabapentin [Neurontin*] 100 mg PO BEDTIME #30 cap Physician Discharge Instructions: 1. Please call and schedule a follow-up appointment with your PCP (Dr. Marin) in 3-5 days - You were found to have a mild anemia, please discuss this with Dr. Marin 2. Please call and schedule a follow-up appointment with Neurology (Dr. Zelaya) in 1-2 weeks Diet: AHA Activity: Fall precautions Followup: Isiah Zelaya MD [ASSOCIATE-ACTIVE - CAN ADMIT] - (follow up in 1 month, call to schedule an appointment) Arian Marin DO [ACTIVE - CAN ADMIT] - Time spent managing pt's care (in minutes): 25
--- NOTE | 2022-09-08 19:12 | EKG ---
Test Date: 2022-09-07 Test Time: 11:54:34 Grinding Wheel Inspector: BP MEASUREMENT RESULTS: Intervals: Rate: 63 PA: 232 QRSD: 82 QT: 458 QTc: 468 [place]: P: 53 PA: 232 QRS: 16 T: 52 INTERPRETIVE STATEMENTS: Sinus rhythm with 1st degree AV block Otherwise normal ECG Compared to ECG 10/19/2019 09:17:57 No significant changes Electronically Signed On 09-08-22 19:10:13 CDT by Nico Sin
--- NOTE | 2022-09-08 22:32 | CON ---
Reason For Consultation: Consultation called because of neuropathy. History Of Present Illness: Ms. Morrison is an 82-year-old patient admitted to [facility] on 0 09/07/2022 with altered mental status, which was likely determined to be due to Lyrica starting at a h igh dosage. She does have comorbid hypertension, dyslipidemia, diabetes mellitus, hypothyroidism, fi bromyalgia, and prior stroke with dementia. Her reason for coming to the hospital was worsening conf usion that began after starting Lyrica, apparently taking 5 tablets, was unclear of the actual dosage . That was started for likely peripheral neuropathy symptoms. Since hospitalization, the patient ac tually improved and has returned to a baseline level of functioning. The request for peripheral neur opathy evaluation was by the emergency room physician when the patient was admitted. Those symptoms have been present for several years and consist of left greater than right numbness and tingling in t he feet and top of the foot as well as the heel section and her toes. The patient has noted some ham alfonso type deformity in her toes and high arches. Much lesser extent symptoms occur in the upper extre mities. Past Medical History: Hypertension, diabetes mellitus type 2, fibromyalgia, and dyslipidemia. No pr ior stroke. Past Surgical History: Noncontributory. Family History: Noncontributory. Allergies: SULFA. Medications: Home medications are aspirin 81 mg daily, baclofen 10 mg at bedtime, vitamin D 1250 mcg daily, Synthroid 50 mcg daily, Zestril 2.5 mg daily, metformin 500 mg daily, Crestor 10 mg at bedtim e, Ventolin inhaler 1 puff as needed daily, multivitamin daily, and zinc 500 mg daily. Review of Systems: The patient has not had any recent fevers or chills. Some confusion is noted, but no myalgias or art hralgias. No rash. No actual active psychiatric issues. Physical Examination: Vital Signs: Blood pressure 114/67, pulse is 70, respiratory rate 16, temperature 97.5, and oxygen s aturation 98% on room air. Weight 101 pounds, height 5 feet, BMI 19.7. Neurologic: Ms. Morrison is alert and oriented to person. She is aware of the state and she is not angelica re of the exact date or day of the week, aware of the month and eventually she did get the year corre ctly. She had difficulty recalling 3 words after 3 minutes, but she could name objects appropriately . In terms of her cranial nerve examination, she is in no significant obvious focal deficits. She m jorge her upper and lower extremities equally well. Sensation had stocking-glove loss to light touch and temperature. Reflexes depressed in upper and lower extremities. Intact coordination. Laboratory Studies: White blood cell count 6.7, hemoglobin 10.9, and platelets 342. INR 1.2. Sodiu m 141, potassium 3.7, chloride 110, glucose ranged from 71 to 101, and calcium 8.3. LDL cholesterol 29, HDL 97. TSH 0.553, free T4 1.03. Liver function studies were normal except slightly elevated T of 40. Urinalysis: Trace blood, 25 esterase. Brain MRI showed no acute intracranial abnormalitie s. There was moderate small vessel ischemic disease without significant change from a study done in 2017. Carotid artery ultrasound showed mild plaque within the carotid arteries. Assessment: Ms. Morrison is an 82-year-old patient admitted to the hospital with transient confusion, p ossibly related to Lyrica toxicity. 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 She should not be placed on Lyrica again. She may try gabapentin 100 mg twice daily for neuro pathic pain. After discharge, she should follow up with Dr. Zelaya's clinic within the month and wilda hester begin that. She may have EMG nerve conduction study of the lower extremities if required. In addition, specific blood work fo r peripheral neuropathy may be done. HARITHA/PATTI Voice ID: [id number] Report ID: [id number]
== END 2022-09-08 15:40 | disposition home or self-care (01) ==
LOC: ER 11:30 → INTOOBSV 16:20 → ERHOLD 16:20 → 4TH 17:51
PROVIDERS: ADMIT Internal Medicine; ATTEND Internal Medicine
DX: G93.41 Metabolic encephalopathy (principal); E78.5 Hyperlipidemia, unspecified; I10 Essential (primary) hypertension; E11.9 Type 2 diabetes mellitus without complications; M79.7 Fibromyalgia; E03.9 Hypothyroidism, unspecified; F03.90 Unspecified dementia, unspecified severity, without behavioral disturbance, psychotic disturbance, mood disturbance, and anxiety; Z88.2 Allergy status to sulfonamides; Z86.73 Personal history of transient ischemic attack (TIA), and cerebral infarction without residual deficits
CPT/HCPCS: 96365; 93005; 87040 ×2; 85025 ×2; 81001; 80048 ×2; 36415; 83735 ×2; 84100; 85610; 80061; 82947 ×4; 80076; 83605; 84443; 84484; 84439; 83880; 70450; 71045; 93880; 70551; 96375; 99285; J1650; J1720; J7030 ×4; J0696 ×2; G0378

== ENCOUNTER 2022-10-19 17:25 | Emergency (ER) | payer OTHER ==
--- OUTSIDE RECORDS SUMMARY | 2022-10-19 17:33 | XMS REPORT | Continuity of Care Document ---
:1940 Author Organization [facility] t Address [address] [facility] [address] [place] [address] Care Team Providers Name Role Phone Arian Marin Attending Clinician Unavailable Payers Payer Name Policy Type Policy Number Effective Date Expiration Date [place] GALLARDO 53 [id number] 2017 [facility] 00:00:00 [facility] MEDICARE MB [id number] 2005 [facility] NOVITAS 00:00:00 [facility] Problems Condition Condition Condition Status Onset Resolution Last Treating Co mments Source Name Details Category Date Date Treatment Clinician Date [id number] Depression Problem Com mon , major, Spirit single - [facility] episode, [facility] [id number] Cigarette Problem Comm on nicotine Spirit dependence - [facility] with nicotinei [facility] nduced Medical disorder Center [id number] Pain in Problem Comm on right hip [facility] [id number] Pain in Problem Comm on left hip [facility] 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 [facility] History of H/O: CVA Problem Com mon cerebrovas (cerebrova Sp aurora cular scular - [facility] accident accident) [facility] residual Medical deficits Center [id number] Unspecifie Problem Com mon d hearing Spirit loss [facility] 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 [id number] Spinal Problem Common stenosis, Spirit other - [facility] region [facility] Insomnia Insomnia Problem Commo n Spirit - [facility]I [facility] Fibromyalg Fibromyalg Problem C ommon ia ia [facility] COPD - COPD Problem Common Chronic (chronic Spirit obstructiv obstructiv - [facility] e e pulmonary pulmonary [place] [facility] disease disease[facility] Hypothyroi Hypothyroi Problem C ommon dism dism Spirit [facility] Nicotine Nicotine Problem Commo n dependence dependence Sp aurora [facility] Hyperlipid Hyperlipid Problem C ommon emia emia [facility] Postsurgic Postsurgic Problem C ommon al al Spirit menopause menopause - CH I [facility] Osteoarthr Osteoarthr Problem C ommon itis of itis of Spirit multiple multiple - [facility] joints joints [facility] [id number] Type 2 Problem Common diabetes Spirit mellitus - [facility] with other [facility] kidney Medical complicati Center on [id number] +5th digit Problem Co mmon eff Spirit 12/20/19*St - [facility]I age 3 [facility] kidney Medical disease Center [id number] Type 2 Problem Commo n 05 diabetes Spirit mellitus - [facility] with diabetic [facility] chronic Medical kidney Center disease Type II Diabetes Problem Common diabetes type 2, Spirit mellitus controlled - CH I well [facility] 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 or - [facility] interverte lumbosacra bral disc l [facility] interverte Medica l bral disc Center Rosacea Rosacea Problem [facility] - [facility] [id number] Non-season Problem Com mon al Spirit allergic - [facility] rhinitis, St unspecifie [facility] d [facility] [id number] Stage 3a Problem Comm on chronic Spirit kidney - [facility] disease [facility] [id number] Memory Problem Common changes [facility] Allergies, Adverse Reactions, Alerts Allergy Allergy Status Severity Reaction(s) Onset Inactive Treating Comm ents Source Name Type Date Date Clinician 6129 Drug Active Unknown Common allergy [facility] Codeine Codeine Active Unknown Common [facility] Social History Social Habit Start Date Stop Date Quantity Comments Source History of Tobacco Current Smoker Co mmon [facility] Use [facility] Sex Assigned At Com mon [facility] Smoking Status Start Date Stop Date Source Current Smoker 2022-08-30 00:00:00 [facility] Medications Ordered Filled Start Stop Current Ordering [...] 50 MG 00:00: 00 traMADol traMADol 2020-1 2- No traMADol HCl 50 MG HCl 50 MG 2-16 01-15 HCl 50 MG 00:00: 00:00 00 :00 traMADol traMADol 2020-1 2020- No traMADol HCl 50 MG HCl [...] C ommon HCl HCl Marin as needed Spirit - [facility] Baclofen 10 Baclofen 10 No 1{table QD [...] 2022-02-09 10:50:00 63 [in_i] Common S pirit [facility] weight 2022-02-09 10:50:00 102.6 [lb_av] [facility] - [facility] temperature 2022-02-09 10:50:00 97.1 [degF] Common S pirit [facility] bmi 2022-02-09 10:50:00 18.17 kg/m2 Common S [facility] oximetry 2022-02-09 10:50:00 98 % Common [facility] respiratory rate 2022-02-09 10:50:00 18 /min Comm on [facility] blood pressure 2022-02-09 10:50:00 103 mm[Hg] Common [facility] - systolic [facility] blood pressure 2022-02-09 10:50:00 62 mm[Hg] Common [facility] - diastolic [facility] height 2021-12-15 13:50:00 63 [in_i] Common [facility] weight 2021-12-15 13:50:00 110.1 [lb_av] [facility] temperature 2021-12-15 13:50:00 97.9 [degF] [facility] bmi 2021-12-15 13:50:00 19.5 kg/m2 [facility] oximetry 2021-12-15 13:50:00 99 % [facility] respiratory rate 2021-12-15 13:50:00 18 /min Comm on [facility] blood pressure 2021-12-15 13:50:00 107 mm[Hg] Common [facility] - systolic [facility] blood pressure 2021-12-15 13:50:00 61 mm[Hg] Common [facility] - diastolic [facility] height 2021-11-26 14:00:00 63 [in_i] Common [facility] weight 2021-11-26 14:00:00 108.4 [lb_av] [facility] temperature 2021-11-26 14:00:00 97.0 [degF] Common [facility] bmi 2021-11-26 14:00:00 19.2 kg/m2 Common S pirit [facility] blood pressure 2021-11-26 14:00:00 122 mm[Hg] [facility] - systolic [facility] blood pressure 2021-11-26 14:00:00 79 mm[Hg] Common [facility] - diastolic [facility] height 2021-11-09 11:30:00 63 [in_i] Common S pirit [facility] weight 2021-11-09 11:30:00 108.7 [lb_av] Common [facility] temperature 2021-11-09 11:30:00 97.3 [degF] Common S pirit [facility] bmi 2021-11-09 11:30:00 19.25 kg/m2 [facility] S [facility] oximetry 2021-11-09 11:30:00 99 % Common [facility] respiratory rate 2021-11-09 11:30:00 18 /min Comm on [facility] blood pressure 2021-11-09 11:30:00 110 mm[Hg] Common [facility] - systolic [facility] blood pressure 2021-11-09 11:30:00 64 mm[Hg] Common [facility] - diastolic [facility] height 2021-04-07 13:00:00 63 [in_i] Common [facility] weight 2021-04-07 13:00:00 105.9 [lb_av] [facility] temperature 2021-04-07 13:00:00 97.5 [degF] Common S [facility] bmi 2021-04-07 13:00:00 18.76 kg/m2 Common S [facility] oximetry 2021-04-07 13:00:00 98 % Common S [facility] respiratory rate 2021-04-07 13:00:00 18 /min Comm on [facility] blood pressure 2021-04-07 13:00:00 129 mm[Hg] Common [facility] - systolic [facility] blood pressure 2021-04-07 13:00:00 75 mm[Hg] Common [facility] - diastolic [facility] height 2021-04-07 13:00:00 63 [in_i] [facility] weight 2021-04-07 13:00:00 105.9 [lb_av] [facility] temperature 2021-04-07 13:00:00 97.5 [degF] Common [facility] bmi 2021-04-07 13:00:00 18.76 kg/m2 [facility] oximetry 2021-04-07 13:00:00 98 % [facility] respiratory rate 2021-04-07 13:00:00 18 /min Comm on [facility] blood pressure 2021-04-07 13:00:00 129 mm[Hg] Common [facility] - systolic [facility] blood pressure 2021-04-07 13:00:00 75 mm[Hg] [facility] diastolic [facility] Procedures This patient has no known procedures. Encounters Start End Encounter Admission Attending Care Care Encounter Source Date/Time Date/Time Type Type Clinicians Facility Department ID 2022-09-13 Outpatient Marin, STLMLC STLC [id number] Common 15:38:00 Arian 37012 [facility] 2022-06-08 Outpatient [place], STLMLC STLC [id number] Common 09:52:00 Arian 66025 [facility] 2022-03-23 Outpatient [place], STLMLC STLMLC [id number] Common 08:22:00 Arian 83715 [facility] 2022-03-11 Outpatient [place], STLMLC STLMLC [id number] Common 14:00:00 Arian 65439 [facility] 2022-02-05 Outpatient [place], STLMLC STLMLC [id number] Common 10:31:00 Arian 36056 [facility] 2022-01-13 Outpatient [place], STLMLC STLMLC [id number] Common 13:04:00 Arian 81114 [facility] 2021-11-26 Outpatient [place], STLMLC STLMLC Common 14:26:00 Arian [facility] 2021-11-12 Outpatient [place], STLMLC STLMLC Common 14:41:00 Arian [facility] 2021-04-15 Outpatient [place], STLMLC STLMLC Common 12:54:57 Arian [facility] 2021-04-15 Outpatient [place], STLMLC STLMLC Common 12:54:40 Arian [facility] 2021-04-15 Outpatient [place], STLMLC STLMLC Common 12:23:02 Arian [facility] 2021-04-15 Outpatient [place], STLMLC STLMLC Common 11:57:43 Arian [facility] 2021-04-15 Outpatient [place], STLMLC STLMLC Common 11:56:48 Arian 45403 [facility] 2021-04-15 Outpatient [place], STLMLC STLMLC Common 11:18:21 Arian 79776 [facility] 2021-04-15 Outpatient [place], STLMLC STLMLC Common 11:17:40 Arian 10403 [facility] 2021-04-15 Outpatient [place], STLMLC STLMLC Common 11:10:40 Arian 04322 [facility] 2021-04-15 Outpatient [place], STLMLC STLMLC Common 11:01:28 Arian 50550 [facility] 2021-04-15 Outpatient [place], STLMLC STLMLC Common 11:01:07 Arian 97012 [facility] 2021-04-15 Outpatient [place], STLMLC STLMLC [id number] Common 11:00:26 [facility] [address] [facility] 2021-04-15 Outpatient [place], STLMLC STLMLC [id number] Common 10:59:36 [facility] [address] [facility] 2022-03-23 2022-03-23 (WEB) STLMLC STLMLC [id number] Co mmon 00:00:00 00:00:00 [facility] 2022-03-22 2022-03-22 (WEB) STLMLC STLMLC [id number] Co mmon 00:00:00 00:00:00 [facility] 2022-03-11 2022-03-11 (WEB) STLMLC STLMLC [id number] Co mmon 00:00:00 00:00:00 [facility] 2022-02-09 2022-02-09 OFFICE STLMLC STLMLC [id number] Co mmon 00:00:00 00:00:00 VISIT Spirit [facility] PT - [facility] LEVEL 4 [facility] 2022-02-01 2022-02-01 (TEL) STLMLC STLMLC [id number] Co mmon 00:00:00 00:00:00 [facility] 2022-01-14 2022-01-14 (TEL) STLMLC STLMLC [id number] Co mmon 00:00:00 00:00:00 [facility] 2021-12-15 2021-12-15 OFFICE STLMLC STLMLC [id number] Co mmon 00:00:00 00:00:00 VISIT EST Spir it PT LEVEL 3 - [facility] 2021-12-10 2021-12-10 (TEL) STLMLC STLMLC [id number] Co mmon 00:00:00 00:00:00 [facility] 2021-12-01 2021-12-01 (TEL) STLMLC STLMLC [id number] Co mmon 00:00:00 00:00:00 [facility] 2021-11-30 2021-11-30 (TEL) STLMLC STLMLC [id number] Co mmon 00:00:00 00:00:00 [facility] 2021-11-26 2021-11-26 OFFICE STLMLC STLMLC [id number] Co mmon 00:00:00 00:00:00 VISIT NEW [facility] PT LEVEL 3 - [facility] 2021-11-12 2021-11-12 (TEL) STLMLC STLMLC [id number] Co mmon 00:00:00 00:00:00 [facility] 2021-11-09 2021-11-09 OFFICE STLMLC STLMLC [id number] Co mmon 00:00:00 00:00:00 VISIT [facility] PT - CHI LEVEL 4 [facility] 2021-10-27 2021-10-27 (TEL) STLMLC STLMLC [id number] Co mmon 00:00:00 00:00:00 [facility] 2021-04-07 2021-04-07 OFFICE STLMLC STLMLC [id number] Co mmon 00:00:00 00:00:00 VISIT [facility] PT - CHI LEVEL 4 [facility] 2021-04-07 2021-04-07 SUB ANNUAL STLMLC STLMLC [id number] Common 00:00:00 00:00:00 [facility] VISIT [facility] 2021-03-05 2021-03-05 (TEL) STLMLC STLMLC [id number] Co mmon 00:00:00 00:00:00 [facility] 2021-01-08 2021-01-08 (TEL) STLMLC STLMLC [id number] Co mmon 00:00:00 00:00:00 [facility] 2020-10-07 2020-10-07 Outpatient STLMLC STLMLC [id number] Common 00:00:00 00:00:00 [facility] 2020-10-01 2020-10-01 Outpatient STLMLC STLMLC [id number] Common 00:00:00 00:00:00 [facility] 2020-07-09 2020-07-09 Outpatient STLMLC STLMLC [id number] Common 00:00:00 00:00:00 [facility] 2020-04-10 2020-04-10 Outpatient STLMLC STLMLC [id number] Common 00:00:00 00:00:00 [facility] 2020-03-11 2020-03-11 Outpatient STLMLC STLMLC [id number] Common 00:00:00 00:00:00 [facility] 2020-03-07 2020-03-07 Outpatient STLMLC STLMLC [id number] Common 00:00:00 00:00:00 [facility] 2020-03-06 2020-03-06 Outpatient STLMLC STLMLC [id number] Common 00:00:00 00:00:00 [facility] 2020-01-09 2020-01-09 Outpatient STLMLC STLMLC [id number] Common 00:00:00 00:00:00 [facility] 2020-01-09 2020-01-09 Outpatient STLMLC STLMLC [id number] Common 00:00:00 00:00:00 [facility] 2019-11-30 2019-11-30 [id number] Common 14:25:00 14:25:[address] Spir it Drive [facility] 2019-10-08 2019-10-08 [facility] [id number] Common 17:59:00 17:59:[address] Spir [address] Drive [facility] 2019-10-08 2019-10-08 [facility] [id number] Common 14:15:00 14:15:[address] Sp[address] Drive [facility] 2019-08-31 2019-08-31 [facility] [id number] Common 13:00:00 13:00:00 t Specialty/U Sp [place] Specialty rology - [facility] /[facility] 2019-07-09 2019-07-09 [facility] [id number] Common 14:15:00 14:15:[address] Sp[address] Drive [facility] 2019-07-02 2019-07-02 [facility] [id number] Common 13:09:00 13:09:[address] Sp[address] Drive [facility] 2019-06-29 2019-06-29 [facility] [id number] Common 09:32:00 09:32:[address] Sp[address] Drive [facility] 2019-06-13 2019-06-13 [facility] [id number] Common 09:02:00 09:02:[address] Sp[address] Drive [facility] 2019-05-17 2019-05-17 [facility] [id number] Common 13:15:00 13:15:[address] Sp[address] Drive [facility] 2019-04-06 2019-04-06 [facility] [id number] Common 10:30:00 10:30:[address] Spir [address] Drive [facility] 2019-03-30 2019-03-30 [facility] [id number] Common 08:13:00 08:13:[address] Spir [address] Drive [facility] 2019-03-01 2019-03-01 [facility] [id number] Common 13:00:00 13:00:00 t Specialty/U Sp [place] Specialty rology - [facility] /[facility] Clinic [facility] 2019-01-03 2019-01-03 [facility] [id number] Common 14:15:00 14:15:[address] Spir [address] Drive [facility] 2018-11-28 2018-11-28 [facility] [id number] Common 14:30:00 14:30:00 t Specialty/U Sp [place] Specialty rology - [facility] /[facility] 2018-11-22 2018-11-22 [facility] [id number] Common 12:23:00 12:23:[address] Sp[address] Drive [facility] 2018-11-09 2018-11-09 [facility] [id number] Common 14:21:00 14:21:00 t Specialty/U Sp [place] Specialty rology - [facility] /[facility] 2018-10-13 2018-10-13 [facility] [id number] Common 13:30:00 13:30:00 t Specialty/U Sp [place] Specialty rology - [facility] /[facility] 2018-10-03 2018-10-03 [facility] [id number] Common 14:00:00 14:00:[address] Sp[address] Drive [facility] 2018-09-08 2018-09-08 [facility] [id number] Common 14:45:00 14:45:00 t Specialty/U Sp [place] Specialty rology - [facility] /[facility] 2018-09-04 2018-09-04 [facility] [id number] Common 15:07:00 15:07:[address] Sp[address] Drive [facility] 2018-09-04 2018-09-04 [facility] [id number] Common 09:45:00 09:45:00 t Specialty/U Sp [place] Specialty rology - [facility] /[facility] 2018-07-13 2018-07-13 [facility] [id number] Common 13:45:00 13:45:00 t Specialty/U Sp [place] Specialty rology - [facility] /[facility] 2018-07-04 2018-07-04 [facility] [id number] Common 13:45:00 13:45:[address] Sp[address] Drive [facility] 2018-04-06 2018-04-06 [facility] [id number] Common 13:45:00 13:45:[address] Sp[address] Drive [facility] 2018-01-04 2018-01-04 [facility] [id number] Common 16:14:00 16:14:[address] Sp[address] Drive [facility] 2018-01-04 2018-01-04 [facility] [id number] Common 14:30:00 14:30:[address] Sp[address] Drive [facility] 2017-09-12 2017-09-12 [facility] [id number] Common 14:15:00 14:15:[address] Sp[address] Drive [facility] 2017-08-12 2017-08-12 [facility] [id number] Common 16:01:00 16:01:[address] Sp[address] Drive [facility] 2017-07-28 2017-07-28 [facility] [id number] Common 10:26:00 10:26:[address] Sp[address] Drive [facility] 2017-06-15 2017-06-15 [facility] [id number] Common 13:15:00 13:15:[address] Sp[address] Drive [facility] Results This patient has no known results.
--- NOTE | 2022-10-19 18:55 | RAD REPORT ---
EXAM DESCRIPTION: CT - Pelvis Wo Cont - 10/19/2022 6:19 pm CLINICAL HISTORY: Pelvic pain status post fall COMPARISON: None. TECHNIQUE: Computed axial tomography of the pelvis was obtained. Coronal and sagittal reconstruction performed All CT scans are performed using dose optimization technique as appropriate and may include automated exposure control or mA/KV adjustment according to patient size. FINDINGS: No fracture or dislocation 9.9 centimeters hematoma subcutaneous tissues right lateral hip. No significant joint effusion IMPRESSION: No fracture seen 9.9 centimeter hematoma subcutaneous tissues right lateral hip
--- NOTE | 2022-10-19 19:00 | ER ---
Nurse's Notes [facility] Name: Jody Morrison Age: 82 yrs Sex: Female : 1940 Arrival Date: 10/19/2022 Time: 17:25 Bed DIS2 Private MD: Diagnosis: Traumatic hematoma of right hip;Fall on same level from slipping, tripping and stumbling with subsequent striking against other object, initial encounter Presentation: 10/19 17:55 Chief complaint: Patient states: hematoma to right hip s/p fall on Tuesday. Pt states cm10 that she fell getting out of bed and tried to put on her shoe too fast and fell. Coronavirus screen: Vaccine status: Patient reports receiving the 2nd dose of the covid vaccine. Ebola Screen: No symptoms or risks identified at this time. Initial Sepsis Screen: Does the patient meet any 2 criteria? No. Patient's initial sepsis screen is negative. Does the patient have a suspected source of infection? No. Patient's initial sepsis screen is negative. Risk Assessment: Do you want to hurt yourself or someone else? Patient reports no desire to harm self or others. Onset of symptoms was October 19, 2022. 17:55 Method Of Arrival: Wheelchair cm10 17:55 Acuity: BAUDILIO 4 cm10 Historical: - Allergies: 17:58 Aspirin; cm10 17:58 NSAIDS; cm10 17:58 PHENOTHIAZINES; cm10 17:58 Sulfa (Sulfonamide Antibiotics); cm10 - PMHx: 17:58 CVA; diabetes mellitus; Fibromyalgia; Herniated disc; Hypertensive disorder; cm10 - Immunization history:: Adult Immunizations. - Social history:: Smoking status: Patient reports the use of cigarette tobacco products, smokes one pack cigarettes per day. Screenin:10 Abuse screen: Denies threats or abuse. Nutritional screening: No deficits noted. vc1 Tuberculosis screening: No symptoms or risk factors identified. 20:10 [facility] ED Fall Risk Assessment (Adult) History of falling in the last 3 months, vc1 including since admission Yes- physiologic fall (2 pts) Confusion or Disorientation No (0 pts) Intoxicated or Sedated No (0 pts) Impaired Gait No (0 pts) Mobility Assist Device Used No (0 pt) Altered Elimination No (0 pt) Score/Fall Risk Level 0 - 2 = Low Risk. Assessment: 20:00 Reassessment: Patient and/or family updated on plan of care and expected duration. Pain vc1 level reassessed. Patient is alert, oriented x 3, equal unlabored respirations, skin warm/dry/pink. General: Appears in no apparent distress. comfortable, Behavior is calm, cooperative, appropriate for age. Pain: Complains of pain in right hip. Neuro: Level of Consciousness is awake, alert, obeys commands, Oriented to person, place, time, situation, Appropriate for age. Vital Signs: 17:55 BP 125 / 78; Pulse 88; Resp 18; Temp 98.1; Pulse Ox 95% ; Weight 45.36 kg; Height 5 ft. cm10 3 in. ; Pain 10/10; 17:55 Body Mass Index 17.71 (45.36 kg, 160.02 cm) cm10 17:55 Pain Scale: Adult cm10 ED Course: 17:28 Patient arrived in ED. mg5 17:31 Candy Vides FNP-C [facility]. snw 17:31 Sukhwinder Healy MD is Attending Physician. snw 17:58 Triage completed. cm10 17:59 Arm band placed on Patient placed in waiting room, in a wheelchair. cm10 18:21 CT Pelvis wo Cont In Process Unspecified. EDMS 20:10 No provider procedures requiring assistance completed. Patient did not have IV access vc1 during this emergency room visit. Administered Medications: 21:37 Not Given (pt states allergyy): Acetaminophen-Codeine PO (300 mg-30 mg) 1 tablet PO vc1 once; RASS on ADMIN: Combtv4, Very Agttd3, Agttd2, Rstlss1, AlertClm0, Drwsy-1, Lt Sdtn-2, Mod Sdtn-3, Dp Sdtn-4, UnArsble-5 Medication: 20:10 VIS not applicable for this client. vc1 Outcome: 18:59 Discharge ordered by . snw 20:10 Discharge instructions given to patient, Instructed on discharge instructions, follow vc1 up and referral plans. Demonstrated understanding of instructions, follow-up care, Prescriptions given X original prescription was tylenol #3 pt states she can't take codeine 21:40 Patient left the ED. vc1 Signatures: Dispatcher [employer] EDMS Candy Vides FNP-C FNP-Csnw Ivonne Christiansen RN RN vc1 Radha Gonzalez RN RN cm10 Joseline Hussein mg5 Corrections: (The following items were deleted from the chart) 17:59 17:58 Social history: Smoking status: Patient reports the use of cigarette tobacco cm10 products, smokes one-half pack cigarettes per day, cm10
--- NOTE | 2022-10-19 19:00 | EDPHYS ---
Physician Documentation [facility] Name: Jody Morrison Age: 82 yrs Sex: Female : 1940 Arrival Date: 10/19/2022 Time: 17:25 Bed DIS2 Private MD: ED Physician Sukhwinder Healy HPI: 10/19 18:08 This 82 yrs old Female presents to ER via Wheelchair with complaints of Fall Injury, snw Bruise/Lump Right Hip. 18:08 Details of fall: The patient fell from an upright position, while walking. Onset: The snw symptoms/episode began/occurred acutely, 6 day(s) ago, and became persistent. Associated injuries: The patient sustained right hip. The patient has experienced similar episodes in the past. It is unknown whether or not the patient has recently seen a physician. Historical: - Allergies: 17:58 Aspirin; cm10 17:58 NSAIDS; cm10 17:58 PHENOTHIAZINES; cm10 17:58 Sulfa (Sulfonamide Antibiotics); cm10 - PMHx: 17:58 CVA; diabetes mellitus; Fibromyalgia; Herniated disc; Hypertensive disorder; cm10 - Immunization history:: Adult Immunizations. - Social history:: Smoking status: Patient reports the use of cigarette tobacco products, smokes one pack cigarettes per day. ROS: 18:08 Constitutional: Negative for fever, chills, and weight loss, Eyes: Negative for injury, snw pain, redness, and discharge, ENT: Negative for injury, pain, and discharge, Neck: Negative for injury, pain, and swelling, Cardiovascular: Negative for chest pain, palpitations, and edema, Respiratory: Negative for shortness of breath, cough, wheezing, and pleuritic chest pain, Abdomen/GI: Negative for abdominal pain, nausea, vomiting, diarrhea, and constipation, Back: Negative for injury and pain, : Negative for injury, bleeding, discharge, and swelling, Skin: Negative for injury, rash, and discoloration, Neuro: Negative for headache, weakness, numbness, tingling, and seizure, Psych: Negative for depression, anxiety, suicide ideation, homicidal ideation, and hallucinations. 18:08 MS/extremity: Positive for injury or acute deformity, ecchymosis, pain, tenderness, of the lateral aspect of right thigh and right hip. Exam: 18:05 Constitutional: This is a well developed, well nourished patient who is awake, alert, snw and in no acute distress. 18:05 Eyes: Pupils equal round and reactive to light, extra-ocular motions intact. Lids and lashes normal. Conjunctiva and sclera are non-icteric and not injected. Cornea within normal limits. Periorbital areas with no swelling, redness, or edema. ENT: Nares patent. No nasal discharge, no septal abnormalities noted. Tympanic membranes are normal and external auditory canals are clear. Oropharynx with no redness, swelling, or masses, exudates, or evidence of obstruction, uvula midline. Mucous membranes moist. Neck: Trachea midline, no thyromegaly or masses palpated, and no cervical lymphadenopathy. Supple, full range of motion without nuchal rigidity, or vertebral point tenderness. No Meningismus. Chest/axilla: Normal chest wall appearance and motion. Nontender with no deformity. No lesions are appreciated. Cardiovascular: Regular rate and rhythm with a normal S1 and S2. No gallops, murmurs, or rubs. Normal PMI, no JVD. No pulse deficits. Respiratory: Lungs have equal breath sounds bilaterally, clear to auscultation and percussion. No rales, rhonchi or wheezes noted. No increased work of breathing, no retractions or nasal flaring. Abdomen/GI: Soft, non-tender, with normal bowel sounds. No distension or tympany. No guarding or rebound. No evidence of tenderness throughout. Back: No spinal tenderness. No costovertebral tenderness. Full range of motion. Neuro: Awake and alert, GCS 15, oriented to person, place, time, and situation. Cranial nerves II-XII grossly intact. Motor strength 5/5 in all extremities. Sensory grossly intact. Cerebellar exam normal. Normal gait. Psych: Awake, alert, with orientation to person, place and time. Behavior, mood, and affect are within normal limits. 18:05 Neuro: Awake and alert, GCS 15, oriented to person, place, time, and situation. Cranial nerves II-XII grossly intact. Motor strength 5/5 in all extremities. Sensory grossly intact. Cerebellar exam normal. Gait not tested 18:05 Head/face: Noted is ecchymosis, that is mild, of the left cheek. 18:05 Musculoskeletal/extremity: Extremities: grossly normal except: noted in the right hip, lateral aspect of right thigh and lateral aspect of right knee: contusion, ecchymosis, tenderness. 18:05 Skin: injury, contusion(s), that are deep, of the right hip, ecchymosis to right lateral hip to knee. Vital Signs: 17:55 BP 125 / 78; Pulse 88; Resp 18; Temp 98.1; Pulse Ox 95% ; Weight 45.36 kg; Height 5 ft. cm10 3 in. ; Pain 10/10; 17:55 Body Mass Index 17.71 (45.36 kg, 160.02 cm) cm10 17:55 Pain Scale: Adult cm10 MDM: 18:04 Patient medically screened. snw 19:05 Differential diagnosis: abrasion, contusion, fracture. Data reviewed: vital signs, snw nurses notes, radiologic studies, CT scan. I considered the following discharge prescriptions or medication management in the emergency department Medications were administered in the Emergency Department. See MAR. Counseling: I had a detailed discussion with the patient and/or guardian regarding: the historical points, exam findings, and any diagnostic results supporting the discharge/admit diagnosis, radiology results, the need for outpatient follow up, for definitive care, to return to the emergency department if symptoms worsen or persist or if there are any questions or concerns that arise at home. Special discussion: Based on the history and exam findings, there is no indication for further emergent testing or inpatient evaluation. I discussed with the patient/guardian the need to see the primary care provider for further evaluation of the symptoms. 10/19 18:04 Order name: CT Pelvis wo Cont; Complete Time: 18:58 snw Administered Medications: 21:37 Not Given (pt states allergyy): Acetaminophen-Codeine PO (300 mg-30 mg) 1 tablet PO vc1 once; RASS on ADMIN: Combtv4, Very Agttd3, Agttd2, Rstlss1, AlertClm0, Drwsy-1, Lt Sdtn-2, Mod Sdtn-3, Dp Sdtn-4, UnArsble-5 Disposition Summary: 10/19/22 18:59 Discharge Ordered Location: Home snw Condition: Stable snw Diagnosis - Traumatic hematoma of right hip snw - Fall on same level from slipping, tripping and stumbling with subsequent striking snw against other object, initial encounter Followup: snw - With: Emergency Department - When: As needed - Reason: Worsening of condition Followup: snw - With: Private Physician - When: 2 - 3 days - Reason: Recheck today's complaints, Continuance of care, Re-evaluation by your physician Discharge Instructions: - Discharge Summary Sheet snw - Hematoma snw - Fall Prevention in the Home, Adult snw - Heat Therapy snw Forms: - Medication Reconciliation Form snw - Thank You Letter snw - Antibiotic Education snw - Prescription Opioid Use snw - Patient Portal Instructions snw Prescriptions: - acetaminophen-codeine 300-30 mg Oral tablet - take 1 tablet by ORAL route 3 times per day as needed for pain; 15 tablet; snw Refills: 0, Product Selection Permitted Signatures: Dispatcher [employer] EDMS Candy Vides, RUDI-C CARE CONSULTANT-Lisandraw Radha Gonzalez RN RN cm10 CalcoteIvonne RN vc1 Corrections: (The following items were deleted from the chart) 17:59 17:58 Social history: Smoking status: Patient reports the use of cigarette tobacco cm10 products, smokes one-half pack cigarettes per day, cm10
[2022-10-19] MEDS ORDERED: CODEINE 30MG/APAP 300MG TAB ONE (20:14)
[2022-10-19 21:58] VITALS: BP 125/78; TEMP 98.1; O2SAT 95
== END 2022-10-19 21:40 | disposition home or self-care (01) ==
LOC: ER 17:25
DX: S70.01XA Contusion of right hip, initial encounter (principal); W01.10XA Fall on same level from slipping, tripping and stumbling with subsequent striking against unspecified object, initial encounter; Z88.2 Allergy status to sulfonamides; Z88.6 Allergy status to analgesic agent; Z88.8 Allergy status to other drugs, medicaments and biological substances
CPT/HCPCS: 72192; 99283

== ENCOUNTER 2024-03-25 06:14 | Emergency (ER) | payer OTHER ==
[2024-03-25] MEDS ORDERED: ONDANSETRON 4 MG/2 ML VIAL ONE (07:25)
[2024-03-25] MEDS ORDERED: MORPHINE 2 MG/ML SYR ONE (07:25)
--- NOTE | 2024-03-25 07:47 | EDPHYS ---
Physician Documentation [facility] Name: Jody Morrison Age: 83 yrs Sex: Female : 1940 Arrival Date: 03/25/2024 Time: 06:14 Bed 13 Private MD: ED Physician Sukhwinder Healy HPI: 03/25 07:40 This 83 yrs old Female presents to ER via EMS with complaints of Fall Injury. vanessa 07:40 Details of fall: The patient fell from an upright position, while walking. Onset: The vanessa symptoms/episode began/occurred yesterday. Associated injuries: The patient sustained anterior aspect of left shoulder and posterior aspect of left shoulder, decreased range of motion, hematoma, obvious fracture, painful injury. Severity of symptoms: At their worst the symptoms were moderate, in the emergency department the symptoms are unchanged. The patient has not experienced similar symptoms in the past. Historical: - Allergies: 07:01 Aspirin; kj2 07:01 NSAIDS; kj2 07:01 PHENOTHIAZINES; kj2 07:01 Sulfa (Sulfonamide Antibiotics); kj2 - PMHx: 07:01 CVA; diabetes mellitus; Fibromyalgia; Herniated disc; Hypertensive disorder; kj2 - Immunization history:: Adult Immunizations unknown. - Infectious Disease History:: Denies. - Social history:: Smoking status: Patient denies any tobacco usage or history of. ROS: 07:41 Constitutional: Negative for fever, chills, and weight loss, Eyes: Negative for injury, vanessa pain, redness, and discharge, ENT: Negative for injury, pain, and discharge, Neck: Negative for injury, pain, and swelling, Cardiovascular: Negative for chest pain, palpitations, and edema, Respiratory: Negative for shortness of breath, cough, wheezing, and pleuritic chest pain, Abdomen/GI: Negative for abdominal pain, nausea, vomiting, diarrhea, and constipation, Back: Negative for injury and pain, : Negative for injury, bleeding, discharge, and swelling, Skin: Negative for injury, rash, and discoloration, Neuro: Negative for headache, weakness, numbness, tingling, and seizure, Psych: Negative for depression, anxiety, suicide ideation, homicidal ideation, and hallucinations, Allergy/Immunology: Negative for hives, rash, and allergies, Endocrine: Negative for neck swelling, polydipsia, polyuria, polyphagia, and marked weight changes, Hematologic/Lymphatic: Negative for swollen nodes, abnormal bleeding, and unusual bruising, 07:41 MS/extremity: Positive for decreased range of motion, pain, of the anterior aspect of left shoulder and posterior aspect of left shoulder, Exam: 07:41 Constitutional: This is a well developed, well nourished patient who is awake, alert, vanessa and in no acute distress. Head/Face: Normocephalic, atraumatic. Eyes: Pupils equal round and reactive to light, extra-ocular motions intact. Lids and lashes normal. Conjunctiva and sclera are non-icteric and not injected. Cornea within normal limits. Periorbital areas with no swelling, redness, or edema. ENT: Nares patent. No nasal discharge, no septal abnormalities noted. Tympanic membranes are normal and external auditory canals are clear. Oropharynx with no redness, swelling, or masses, exudates, or evidence of obstruction, uvula midline. Mucous membranes moist. Neck: Trachea midline, no thyromegaly or masses palpated, and no cervical lymphadenopathy. Supple, full range of motion without nuchal rigidity, or vertebral point tenderness. No Meningismus. Chest/axilla: Normal chest wall appearance and motion. Nontender with no deformity. No lesions are appreciated. Cardiovascular: Regular rate and rhythm with a normal S1 and S2. No gallops, murmurs, or rubs. Normal PMI, no JVD. No pulse deficits. Respiratory: Lungs have equal breath sounds bilaterally, clear to auscultation and percussion. No rales, rhonchi or wheezes noted. No increased work of breathing, no retractions or nasal flaring. Abdomen/GI: Soft, non-tender, with normal bowel sounds. No distension or tympany. No guarding or rebound. No evidence of tenderness throughout. Back: No spinal tenderness. No costovertebral tenderness. Full range of motion. Skin: Warm, dry with normal turgor. Normal color with no rashes, no lesions, and no evidence of cellulitis. Neuro: Awake and alert, GCS 15, oriented to person, place, time, and situation. Cranial nerves II-XII grossly intact. Motor strength 5/5 in all extremities. Sensory grossly intact. Cerebellar exam normal. Normal gait. Psych: Awake, alert, with orientation to person, place and time. Behavior, mood, and affect are within normal limits. 07:41 Musculoskeletal/extremity: ROM: limited active range of motion due to pain, limited passive range of motion due to pain, Circulation is intact in all extremities. Sensation intact. Compartment Syndrome exam of affected extremity: is normal. 07:41 Neuro: Orientation: is normal, Mentation: is normal, appropriate for stated age, no acute changes, Memory: is normal, appropriate for stated age, no acute changes, Cranial nerves: grossly normal, is grossly normal based on the patient's age, no acute changes, Cerebellar function: is grossly normal, is grossly normal based on the patient's age, no acute changes, Motor: is normal, is grossly normal based on the patient's age, no acute changes, moves all fours, Sensation: is normal, appropriate no acute changes, Gait: not tested. seizure activity, is not displayed by the patient, Vital Signs: 06:45 BP 138 / 84; Pulse 80; Resp 18; Temp 97.9; Pulse Ox 98% ; Weight 47.63 kg; Height 5 ft. kj2 3 in. ; Pain 8/10; 06:45 Body Mass Index 18.60 (47.63 kg, 160.02 cm) kj2 06:45 Pain Scale: Adult kj2 Procedures: 07:41 Splinting: using sling, applied by nurse. Examined by me, post splint application: vanessa neurovascular intact, 2+ distal pulses palpable, brisk capillary refill noted, Patient tolerated well. MDM: 07:12 Medical Screening Exam initiated vanessa 07:41 Differential diagnosis: abrasion, closed head injury, contusion, fracture, laceration, vanessa multiple trauma, sprain, strain. Data reviewed: vital signs, nurses notes, lab test result(s), radiologic studies, plain films. Consideration of Admission/Observation Escalation of care including admission/observation considered. I considered the following discharge prescriptions or medication management in the emergency department Medications were administered in the Emergency Department. See MAR. Independent interpretation of the following test(s) in the Emergency Department X-Ray: My interpretation is left shoulder fx. Test considered but Not performed: EKG: no ekg. Historians other than the Patient: Family Member: family well informed. Care significantly affected by the following chronic conditions: Diabetes, Hypertension, cva. 03/25 07:20 Order name: CBC with Diff; Complete Time: 09:05 [facility] 03/25 07:20 Order name: Comprehensive Metabolic Panel [facility] 03/25 08:26 Order name: CBC Smear Scan; Complete Time: 09:05 [facility] 03/25 07:20 Order name: Shoulder Left (2 View) XRAY; Complete Time: 09:05 [facility] 03/25 07:24 Order name: Head C Spine Mpr Wo Con; Complete Time: 09:05 [facility] 03/25 07:25 Order name: Chest Abd Pelvis Wo Con; Complete Time: 09:05 [facility] 03/25 07:20 Order name: Ice pack; Complete Time: 07:35 [facility] 03/25 07:20 Order name: Shoulder Immobilizer; Complete Time: 09:13 [facility] 03/25 08:43 Order name: Labs - recollect needed: recollect chemistries hemolyzed per Julia zaldivar Complete Time: 09:27 Administered Medications: 08:17 Drug: morphine IVP or IV 2 mg IVP once over 4 mins Route: IVP; Infused Over: 4 mins; kc6 Site: right forearm; 10:36 Follow up: Response: No adverse reaction bp 08:17 Drug: Ondansetron IVP 4 mg IVP once; over 2 minutes Route: IVP; Site: right forearm; kc6 10:36 Follow up: Response: No adverse reaction bp Disposition Summary: 03/25/24 07:47 Discharge Ordered Notes: Location: Home vanessa Problem: new vanessa Symptoms: have improved vanessa Condition: Stable vanessa Diagnosis - Fall on same level, unspecified vanessa - 2-part displaced fracture of surgical neck of left humerus vanessa Followup: vanessa - With: Private Physician - When: 2 - 3 days - Reason: Recheck today's complaints, Continuance of care, Re-evaluation by your physician Followup: vanessa - With: Mike Hsu MD - When: 2 - 3 days - Reason: Recheck today's complaints, Re-evaluation by your physician Discharge Instructions: - Discharge Summary Sheet vanessa - Fall Prevention in the Home, Adult vanessa - Humerus Fracture Treated With Immobilization vanessa - Humerus Fracture Treated With Immobilization, [id number] vanessa - Fall Prevention in the Home, Adult, [id number] vanessa - Humerus Fracture Rehab vanessa Forms: - Medication Reconciliation Form vanessa - Antibiotic Education vanessa - Prescription Opioid Use vanessa - Patient Portal Instructions [facility] - Leadership Thank You Letter vanessa Prescriptions: - acetaminophen-codeine 300-30 mg Oral tablet - take 1 tablet ORAL route every 4-6 hours prn pain; 20 tablet; Refills: 0, [facility] Product Selection Permitted - ondansetron 4 mg Oral Tablet,disintegrating - take 1 tablet ORAL route every 6-8 hours for 5 days; 20 tablet; Refills: 0, [facility] Product Selection Permitted Signatures: Dispatcher [employer] EDSukhwinder Monet MD MD cha Botello, Elizabeth eb Campbell, Kaitlyn RN RN kc6 Alondra Ocasio RN RN kj2 Nahun Montez RN bp Corrections: (The following items were deleted from the chart) 07:20 07:20 CBC+H.LAB.BRZ ordered. EDMS EDMS 07:20 07:20 COMPREHENSIVE METABOLIC PANEL+C.LAB.BRZ ordered. EDMS EDMS 07:20 07:20 Head C Spine Cap Wo Con+CT.RAD.BRZ ordered. EDMS EDMS
--- NOTE | 2024-03-25 07:47 | ER ---
Nurse's Notes [facility] Name: Jody Morrison Age: 83 yrs Sex: Female : 1940 Arrival Date: 03/25/2024 Time: 06:14 Bed 13 Private MD: Diagnosis: Fall on same level, unspecified;2-part displaced fracture of surgical neck of left humerus Presentation: 03/25 06:45 Chief complaint: EMS states: fall at home, pain in left arm. Coronavirus screen: Client kj2 denies travel out of the [place] in the last 14 days. Ebola Screen: No symptoms or risks identified at this time. Initial Sepsis Screen: Does the patient meet any 2 criteria? No. Patient's initial sepsis screen is negative. Does the patient have a suspected source of infection? No. Patient's initial sepsis screen is negative. Risk Assessment: Do you want to hurt yourself or someone else? Patient reports no desire to harm self or others. Onset of symptoms was 2023. Care prior to arrival: Medication(s) given: fentanyl 50mcg intranasally via EMS. 06:45 Method Of Arrival: EMS: [facility] kj2 06:45 Acuity: BAUDILIO 3 kj2 Triage Assessment: 06:45 General: Appears in no apparent distress. uncomfortable, Behavior is cooperative. Pain: kj2 Complains of pain in left arm Pain currently is 8 out of 10 on a pain scale. Neuro: Level of Consciousness is awake, alert, obeys commands, Oriented to person, place, time, situation. Cardiovascular: Patient's skin is warm and dry. Respiratory: Airway is patent Respiratory effort is unlabored. GI: No signs and/or symptoms were reported involving the gastrointestinal system. : No signs and/or symptoms were reported regarding the genitourinary system. Injury Description: left arm post fall. Historical: - Allergies: 07:01 Aspirin; kj2 07:01 NSAIDS; kj2 07:01 PHENOTHIAZINES; kj2 07:01 Sulfa (Sulfonamide Antibiotics); kj2 - PMHx: 07:01 CVA; diabetes mellitus; Fibromyalgia; Herniated disc; Hypertensive disorder; kj2 - Immunization history:: Adult Immunizations unknown. - Infectious Disease History:: Denies. - Social history:: Smoking status: Patient denies any tobacco usage or history of. Screenin:45 [facility] ED Fall Risk Assessment (Adult) History of falling in the last 3 months, kj2 including since admission Yes- single mechanical fall (1 pt) Confusion or Disorientation No (0 pts) Intoxicated or Sedated No (0 pts) Impaired Gait Yes (1 pt) Mobility Assist Device Used Yes (1 pt) Altered Elimination No (0 pt) Score/Fall Risk Level 3 or more points = High Risk Maintained a safe environment, Educated pt \T\ family on fall prevention, incl call for assistance when getting out of bed, Hourly rounding (assess needs \T\ fall precautionary measures) done, Utilized family, sitter, or virtual program professional as indicated. Abuse screen: Denies threats or abuse. Denies injuries from another. Nutritional screening: No deficits noted. Tuberculosis screening: No symptoms or risk factors identified. Assessment: 06:45 General: see triage. kj2 07:51 Reassessment: d/c pending results. DAX Garnica \T\ Carlitos at bedside attempting to start an kc6 IV and collect labs. 08:17 Reassessment: Patient appears in no apparent distress at this time. No changes from kc6 previously documented assessment. Patient and/or family updated on plan of care and expected duration. Pain level reassessed. 08:18 Reassessment: pt to CT via stretcher. kc6 09:17 Reassessment: Patient appears in no apparent distress at this time. No changes from kc6 previously documented assessment. Patient and/or family updated on plan of care and expected duration. Pain level reassessed. 10:17 Reassessment: Patient appears in no apparent distress at this time. No changes from kc6 previously documented assessment. Patient and/or family updated on plan of care and expected duration. Pain level reassessed. Vital Signs: 06:45 BP 138 / 84; Pulse 80; Resp 18; Temp 97.9; Pulse Ox 98% ; Weight 47.63 kg; Height 5 ft. kj2 3 in. ; Pain 8/10; 06:45 Body Mass Index 18.60 (47.63 kg, 160.02 cm) kj2 06:45 Pain Scale: Adult kj2 ED Course: 06:28 Patient arrived in ED. gm2 06:45 Provided Education on: call light. kj2 06:55 Alondra Ocasio, DAX is Primary Nurse. kj2 07:00 Report given to Alondra Ocasio RN. kc6 07:00 Pulse ox on. NIBP on. Door closed. Noise minimized. Lights dimmed. Warm blanket given. kc6 Pillow given. 07:00 Arm band placed on. kc6 07:01 Triage completed. kj2 07:07 Patient has correct armband on for positive identification. Bed in low position. Call kj2 light in reach. Adult w/ patient. 07:12 Sukhwinder Healy MD is Attending Physician. vanessa 07:17 Patient maintains SpO2 saturation greater than 95% on room air. kc6 07:28 Report given to DAX de jesus. kj2 07:35 Ice pack to injury. kc6 07:35 Missed attempt(s): 22 gauge in right forearm. kc6 07:43 Shoulder Left (2 View) XRAY In Process Unspecified. EDMS 07:46 Mike Hsu MD is Referral Physician. vanessa 07:51 Missed attempt(s): 24 gauge in right wrist. kc6 08:00 Inserted saline lock: 24 gauge in right forearm, using aseptic technique. Flushed with em1 10 mL NS. 08:22 Initial lab(s) drawn, by ED staff, sent to lab. Inserted saline lock: 24 gauge in right kc6 forearm, using aseptic technique. Blood collected. Flushed with 10 mL NS. 08:30 Head C Spine Mpr Wo Con In Process Unspecified. EDMS 08:31 Chest Abd Pelvis Wo Con In Process Unspecified. EDMS 09:13 Shoulder immobilizer applied on left shoulder. kc6 10:35 No provider procedures requiring assistance completed. IV discontinued. bp Administered Medications: 08:17 Drug: morphine IVP or IV 2 mg IVP once over 4 mins Route: IVP; Infused Over: 4 mins; kc6 Site: right forearm; 10:36 Follow up: Response: No adverse reaction bp 08:17 Drug: Ondansetron IVP 4 mg IVP once; over 2 minutes Route: IVP; Site: right forearm; kc6 10:36 Follow up: Response: No adverse reaction bp Medication: 07:07 VIS not applicable for this client. kj2 Outcome: 07:47 Discharge ordered by . vanessa 10:35 Discharged to home via wheelchair, with family, bp 10:35 Condition: stable 10:35 Discharge instructions given to patient, family, Instructed on discharge instructions, follow up and referral plans. medication usage, Demonstrated understanding of instructions, follow-up care, medications, splint care, Prescriptions given X 2, 10:42 Patient left the ED. kc6 Signatures: Dispatcher [employer] EDSukhwinder Monet MD MD cha Martinez, Eric em1 Nahun Montez, RN RN Ana Lilia Ramachandran RN RN kc6 Sivan Lopez 2 Alondra Ocasio RN RN kj2
[2024-03-25 08:23] LABS: Absolute Basophils 0.1 K/uL (0-0.5); Absolute Lymphocytes (CBC) 0.5 K/uL (0.7-4.9); Absolute Monocytes 0.5 K/uL (0.1-1.3); Absolute Neutrophil 9.3 K/uL (1.8-8.0); Basophils % 0.7 % (0-1.3); Eosinophils % 0.2 % (0-4.4); Hemoglobin 11.8 g/dL (12.0-15.0); MCH 29.6 pg (27.0-35.0); MCHC 32.8 g/dL (32.0-36.0); MCV 90.4 fL (80-100); MPV 6.8 fL (7.6-11.3); Monocytes % 4.7 % (3.3-12.3); Neutrophils % 89.4 % (41.7-73.7); Platelets 372 thou/uL (152-406); RBC Red Blood Cell Count 3.98 M/uL (3.86-4.86); Red Cell Distribution Width 14.7 % (12.1-15.2)
--- NOTE | 2024-03-25 08:39 | RAD REPORT ---
EXAMINATION: CT HEAD WITHOUT CONTRAST CT CERVICAL SPINE WITHOUT CONTRAST CLINICAL INDICATION: Head and neck injury status post fall. Head and neck pain TECHNIQUE: Axial CT images from the skull base to the vertex without intravenous contrast. Axial CT i mages through the cervical spine were obtained without intravenous contrast. Sagittal and coronal reformatted images were created from the data set. Coronal and sagittal reformatted images were creat ed from the data set. One or more of the following dose reduction techniques were used: Automated exposure control, adjustment of the mA and/or kV according to patient size, and/or iterative reconstr uction. Unless otherwise specified, incidental findings do not require dedicated imaging follow-up. [id number]. Comparison: none FINDINGS: An intracranial bleed is not seen. Ventricles are normal in caliber. Mild to moderate low-density paraventricular, deep and subcortical matter probably ischemic changes s econdary to small vessel disease. No extra-axial fluid collection. No fluid within the sinuses/mastoids No fracture or dislocation is seen involving the cervical spine. Moderate to marked spondylosis C5-6 IMPRESSION: No acute intracranial abnormality noted A cervical fracture is not seen. 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
--- NOTE | 2024-03-25 08:51 | RAD REPORT ---
EXAM: CT CHEST, ABDOMEN AND PELVIS WITHOUT CONTRAST CLINICAL INDICATION: Chest and abdominal pain TECHNIQUE: CT chest, abdomen and pelvis was performed, without IV contrast, as per department protoco l. Axial, sagittal and coronal reconstructions were obtained. One or more of the following dose reduction techniques were used: Automated exposure control, adjustment of the mA and/or kV according to the patient size, and/or iterative reconstruction. Unless otherwise specified, incidental findings do not require dedicated imaging follow-up. The lack of IV and oral contrast limits evaluation of the mediastinum, rosetta, vessels, organs and ana l. COMPARISON: None FINDINGS: No pulmonary contusion. 9 mm nodule left upper lobe. 8 mm nodule right upper lobe. Additional smaller right upper lobe nodules. No mediastinal hematoma. Comminuted markedly displaced fracture left humeral neck which involves the greater tubercle. No pleural effusion. No pericardial effusion. Liver, spleen, pancreas, adrenals kidneys and bladder appear grossly normal There is no evidence of diverticulitis. Postsurgical changes right inguinal hernia repair. IMPRESSION: Comminuted markedly displaced left humeral fracture. No traumatic injury abdomen/pelvis seen Bilateral upper lobe nodules. PET CT scan recommended
--- NOTE | 2024-03-25 08:53 | RAD REPORT ---
Exam:Shoulder Left 2+ Views HISTORY: Left shoulder pain FINDINGS: Comminuted markedly displaced fracture humeral neck extending into the greater tubercle left humerus. No dislocation
[2024-03-25 08:58] LABS: Blood Morphology Comment NOT SEEN (NOT SEEN); Platelet Estimate ADEQ; White Blood Cell Scan OK (OK)
[2024-03-25 09:54] LABS: Albumin 3.5 g/dL (3.4-5.0); Albumin/Globulin Ratio 0.9 (1.1-1.8); Bilirubin Total 0.3 mg/dL (0.2-1.0); Globulin 3.9 g/dL (2.3-3.5); Protein, Total 7.4 g/dL (6.4-8.2)
[2024-03-25 10:56] VITALS: BP 138/84; TEMP 97.9; O2SAT 98
== END 2024-03-25 10:42 | disposition home or self-care (01) ==
LOC: ER 06:14
DX: S42.222A 2-part displaced fracture of surgical neck of left humerus, initial encounter for closed fracture (principal); W18.30XA Fall on same level, unspecified, initial encounter
CPT/HCPCS: 85025; 36415; 80053; 70450; 71250; 72125; 74176; 73030; 96375; 96374; 99284; J2270; J2405

== ENCOUNTER 2024-06-27 10:59 | Emergency (ER) | payer OTHER ==
--- OUTSIDE RECORDS SUMMARY | 2024-06-27 11:05 | XMS REPORT | Continuity of Care Document ---
Author Name Unknown Address [address] [facility] [address] [place] [address] [facility] Address [address] [facility] [place] [address] Care Team Providers Care Senior It Security Analyst Name Role Phone Tomas CLAY, [facility] Primary Care Physician + Arian Marin Attending Clinician Unavailable Darleen Mccray MD Attending Clinician [phone] DARLEEN MCCRAY Attending Clinician Unavail able Valentina Perez MA Attending Clinician Unavailab sabino Lara RN, Mary Attending Clinician Unavailabl e Payers Payer Name Policy Type Policy Number Effective Date Expirati on Date Source [employer] MEDICARE ADVANTAGE Medicare [id number] 2023 00:00:00 [employer] 53 [id number] 2017 00:00:00 [facility] MEDICARE NOV[place] MB [id number] 2005 00:00:00 [facility] Problems Condition Name Condition Details Condition Category Status Onset Date Resolution Date Last Treatment Date Treating Clinician Comments Source Amnesia Amnesia Disease Active 2023-03 00:00: 00 Memoria audrey Ann Epic Hypothyroi dism Hypothyroi dism Disease Active 2023-03 00:00: 00 Toshiaoria audrey Ann Epic Lumbar radiculopa thy Lumbar radiculopa thy Disease Active 2023-03 00:00: 00 Annamaria Chavez Type 2 diabetes mellitus Type 2 diabetes mellitus Disease Active 2023-03 0 00:00: 00 Annamaria Chavez Hyperlipid emia Hyperlipid emia Disease Active 2023-03 017 00:00: 00 Annamaria Chavez Ankylosing spondyliti s Ankylosing spondyliti s Disease Active 2023-03 0 00:00: 00 Annamaria Chavez Cervico-oc cipital neuralgia Cervico-oc cipital neuralgia Disease Active 2023-03 0 00:00: 00 Annamaria Chavez Dementia Dementia Disease Active 2023-03 0 00:00: 00 Annamaria Chavez Insomnia due to medical condition Insomnia due to medical condition Disease Active 2023-03 00:00: 00 Annamaria Chavez Alzheimer' s dementia Alzheimer' s dementia Disease Recurre nce 2023-03 008 00:00: 00 Annamaria Chavez Impaired cognition (finding) Impaired cognition (finding) Active Problem 03/14/2023 [facility] [place] Problem Active 2023-03-14 11:30:28 Annamaria Ann Anemia Anemia, unspecifie d type Problem [facility] 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 Problem [facility] [id number] Depression , major, single episode, moderate Problem [facility] [id number] Cigarette nicotine dependence with nicotine-i nduced disorder Problem [facility] [id number] Pain in right hip Problem [facility] [id number] Pain in left hip Problem [facility] Renal insufficie ncy syndrome Renal insufficie ncy syndrome Problem [facility] History of cerebrovas cular accident without residual deficits H/O: CVA (cerebrova scular accident) Problem [facility] [id number] Unspecifie d hearing loss Problem [facility] Varicose veins Varicose veins Problem [facility] Seasonal allergic rhinitis Allergic rhinitis, seasonal Problem Common [facility] Chronic back pain Chronic back pain Problem [facility] Degenerati ve joint disease Degenerati ve joint disease Problem [facility] [id number] Mixed incontinen ce urge and stress Problem [facility] [id number] Urinary incontinen ce, unspecifie d type Problem [facility] [id number] Spinal stenosis, other region Problem [facility] Insomnia Insomnia Problem [facility] Fibromyalg ia Fibromyalg ia Problem [facility] COPD - Chronic obstructiv e pulmonary disease COPD (chronic obstructiv e pulmonary disease) Problem [facility] Nicotine dependence Nicotine dependence Problem [facility] Postsurgic al menopause Postsurgic al menopause Problem [facility] 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 Problem [facility] [id number] +5th digit eff 12/20/19*St age 3 chronic kidney disease Problem [facility] [id number] Type 2 diabetes mellitus with diabetic chronic kidney disease Problem [facility] Type II diabetes mellitus well controlled Diabetes type 2, controlled Problem [facility] Degenerati on of lumbar interverte bral disc Degenerati on of lumbar or lumbosacra l interverte bral disc Problem [facility] Rosacea Rosacea Problem [facility] [id number] Non-season al allergic rhinitis, unspecifie d trigger Problem [facility] [id number] Stage 3a chronic kidney disease Problem [facility] [id number] Memory changes Problem [facility] Hematoma Hematoma Disease Resolve d 2023-03 00:00: 00 2024-01-05 00:00:00 2024-01-05 10:32:08 Annamaria Chavez Allergies, Adverse Reactions, Alerts Allergy Name Allergy Type Status Severity Reaction(s) Onset Date Inactive Date Treating Clinician Comments Source Mya Landa ty to adverse reaction s Active 05-30 00:00: 00 Other Reaction( s): Unknown Annamaria ventura [facility] Nsaids Drug Allergy Active 2023-03 0- 00:00: 00 Annamaria ventura [facility] Sulfa Antibiot ics Drug Allergy Active 2023-03 0 00:00: 00 Other Reaction( s): Unknown Annamaria audrey [facility] 6129 Drug allergy Active Unknown Common [facility] sulfa drugs sulfa drugs Active Annamaria ventura [facility] Social History Social Habit Start Date Stop Date Quantity Comments Source Gender identity 2023-06-11 18:03:58 Identifies as female gender (finding) [facility] History of tobacco use Passive smoker [facility] ASSERTION Possible [facility] Sexual orientation M emorial [facility] Sex Assigned At [facility] Alcoholic beverage intake 2024-05-30 00:00:00 2024-05-30 00:00:00 Lifetime non-drinker (finding) [facility] History of Social function 2024-05-30 00:00:00 2024-05-30 00:00:00 [facility] Tobacco use and exposure 2024-01-05 00:00:00 2024-01-05 00:00:00 Smokeless tobacco non-user [facility] Smoking Status Start Date Stop Date Source Smokes tobacco daily 2024-01-05 00:00:00 [facility] Medications Ordered Medication Name Filled Medication Name Start Date Stop Date Current Medication? Ordering Clinician Indication Dosage Frequency Signature (SIG) Comments Components Source traZODone (Desyrel) 50 MG tablet traZODone (Desyrel) 50 MG tablet 05-21 00:00: 00 Yes 50mg TAKE 1 TABLET BY MOUTH EVERYDAY AT BEDTIME [facility] memantine (Namenda) 10 MG tablet memantine (Namenda) 10 MG tablet 04-16 00:00: 00 04-16 23:59 :00 No 10mg Q.5D Take 1 tablet by mouth in the morning and 1 tablet in the evening. Annamaria ventura [facility] baclofen (Lioresal) 5 MG tablet baclofen (Lioresal) 5 MG tablet - 00:00: 00 Yes 5mg TAKE 1 TABLET BY MOUTH EVERYDAY AT BEDTIME Annamaria Ann [facility] traZODone (Desyrel) 50 MG tablet traZODone (Desyrel) 50 MG tablet 2023-03 00:00: 00 05-21 00:00 :00 No 50mg TAKE 1 TABLET BY MOUTH EVERYDAY AT BEDTIME Annamaria Ann [facility] memantine (Namenda) 10 MG tablet memantine (Namenda) 10 MG tablet 2023-03 1 00:00: 00 Yes 10mg Q.5D TAKE 1 TABLET BY MOUTH IN THE MORNING AND IN THE EVENING Annamaria Ann [facility] traZODone (Desyrel) 50 MG tablet traZODone (Desyrel) 50 MG tablet 2023-03 00:00: 00 01-30 00:00 :00 No 50mg Take 1 tablet by mouth at bedtime. Annamaria Ann [facility] memantine (Namenda) 10 MG tablet memantine (Namenda) 10 MG tablet 2023-03 0 00:00: 00 01-22 00:00 :00 No 10mg Q.5D Take 1 tablet by mouth in the morning and 1 tablet in the evening. Annamaria Ann [facility] mirtazapine (Remeron) 15 MG tablet mirtazapine (Remeron) 15 MG tablet 8-09 00:00: 00 01-04 00:00 :00 No 15mg TAKE 1 TABLET BY MOUTH EVERYDAY AT BEDTIME Annamaria Ann [facility] DULoxetine (Cymbalta) [address] capsule DULoxetine (Cymbalta) [address] capsule 8-05 00:00: 00 Yes 1{capsu le} QD Take 1 capsule by mouth 1 time each day. Annamaria Ann [facility] baclofen (Lioresal) 5 MG tablet baclofen (Lioresal) 5 MG tablet 7-13 00:00: 00 03-22 00:00 :00 No 5mg TAKE 1 TABLET BY MOUTH EVERYDAY AT BEDTIME Annamaria Ann [facility] memantine (Namenda) 5 MG tablet memantine (Namenda) 5 MG tablet 5-29 00:00: 00 2024- 10-08 00:00 :00 No 5mg Q.5D TAKE 1 TABLET BY MOUTH TWICE A DAY Memoria audrey [facility] baclofen 5 mg oral tablet 2022-03 21:54: 00 Yes 5 mg = 1 tab, PO, Bedtime, # 90 tab, 1 Refill(s), [id number], 152.4, cm, 03/11/23 15:22:00 [employer], Height, 50.909, kg, 03/11/23 15:22:00 [employer], Weight Memoria audrey Ann Namenda 10 mg oral tablet 11-02 21:23: 00 Yes 10 mg = 1 tab, PO, BID, # 180 tab, 1 Refill(s), Pharmacy: [facility] #[id number], 152.4, cm, 11/02/22 15:42:00 CDT, Height, 46.023, kg, 11/02/22 15:42:00 CDT, Weight Memoria audrey Ann baclofen 10 mg oral tablet 10-21 18:39: 00 Yes = 1 tab, PO, Bedtime, # 90 tab, 1 Refill(s), Pharmacy: [id number], 152.4, cm, 09/15/22 14:28:00 CDT, Height, 45, kg, 09/15/22 14:28:00 CDT, Weight Memoria audrey Ann Namenda 5 mg oral tablet 09-15 20:04: 00 Yes 5 mg = 1 tab, PO, BID, # 60 tab, 3 Refill(s), Pharmacy: [facility] #[id number], 152.4, cm, 09/15/22 14:28:00 CDT, Height, 45, kg, 09/15/22 14:28:00 CDT, Weight Memoria audrey Ann tramadol 50 mg oral tablet 09-15 19:49: 00 Yes TAKE 1 TABLET BY MOUTH EVERY DAY NEEDED FOR PAIN Annamaria Ann DULoxetine 60 mg oral delayed release capsule 09-15 19:49: 00 Yes TAKE 1 CAPSULE BY MOUTH EVERY DAY FOR 90 DAYS Annamaria Ann lisinopril 2.5 mg oral tablet 09-15 19:49: 00 Yes TAKE 1 TABLET BY MOUTH EVERY DAY [facility]oria audrey [facility] baclofen 10 mg oral tablet 09-15 19:49: 00 Yes TAKE 1 TABLET BY MOUTH EVERYDAY AT BEDTIME Annamaria Ann lisinopril 2.5 MG tablet lisinopril 2.5 MG tablet 09-15 00:00: 00 Yes TAKE 1 TABLET BY MOUTH EVERY DAY Annamaria Thakurann Epic baclofen 10 mg oral tablet 2020-03 18:13: 00 Yes = 1 tab, PO, Bedtime, # 90 tab, 3 Refill(s), Pharmacy: [facility] #[id number], 152.4, cm, 07/20/19 15:01:00 CDT, Height, 56.818, kg, 07/20/19 15:01:00 CDT, Weight Annamaria ventura Seth tramadol hydrochlori de 50 MG Oral Tablet 10-27 13:53: 00 Yes 50 mg = 1 tab, PO, Q4H, 0 Refill(s) Annamaria Ann CoQ10 CoQ10 2017-03 00:00: 00 No 2{puffs _as_nee ded} QID CoQ10 baclofen 10 mg oral tablet 2017-03 15:35: 00 Yes 10 mg = 1 tab, PO, Bedtime, # 90 tab, 3 Refill(s), Pharmacy: [facility] #[id number] Toshiajovany Ann aspirin 81 mg tablet, enteric coated 08-25 18:47: 00 Yes 81 mg = 1 tab, PO, Daily, # 90 tab, 3 Refill(s) Toshiajovany audrey Ann aspirin EC 81 MG EC tablet aspirin EC 81 MG EC tablet 08-25 00:00: 00 Yes 81mg 81 mg = 1 tab, PO, Daily, # 90 tab, 3 Refill(s) Annamaria Ann Epic Levothyroxi ne Sodium 50 MCG Levothyroxi ne Sodium 50 MCG No QD Levothyrox ine Sodium 50 MCG Rosuvastati n Calcium 10 MG Rosuvastati n Calcium 10 MG No Rosuvastat in Calcium 10 MG Vital Signs Vital Name Observation Time Observation Value Comments S ource height 2024-06-12 13:00:00 63 [in_i] Com[facility] n [facility] weight 2024-06-12 13:00:00 138 [lb_av] Comm on [facility] temperature 2024-06-12 13:00:00 98.6 [degF] Com mon [facility] bmi 2024-06-12 13:00:00 24.44 kg/m2 Comm on [facility] blood pressure systolic 2024-06-12 13:00:00 112 mm[Hg] Common [facility] blood pressure diastolic 2024-06-12 13:00:00 76 mm[Hg] [facility] Systolic blood pressure 2024-05-30 10:51:00 99 mm[Hg] [facility] Diastolic blood pressure 2024-05-30 10:51:00 58 mm[Hg] [facility] Heart rate 2024-05-30 10:51:00 98 /min [facility] 2024-05-30 10:51:00 36.61 [facility] Respiratory rate 2024-05-30 10:51:00 16 /min [facility] Body height 2024-05-30 10:51:00 153.7 cm Jose [facility] Body weight 2024-05-30 10:51:00 58.514 kg Jose [facility] BMI 2024-05-30 10:51:00 24.78 kg/m2 [facility] Oxygen saturation in Arterial blood by Pulse oximetry 2024-05-30 10:51:00 94 /min [facility] Systolic blood pressure 2024-05-30 10:51:00 99 mm[Hg] [facility] Diastolic blood pressure 2024-05-30 10:51:00 58 mm[Hg] [facility] Heart rate 2024-05-30 10:51:00 98 /min Memor ial [facility] Body temperature 2024-05-30 10:51:00 36.61 [facility] Respiratory rate 2024-05-30 10:51:00 16 /min [facility] Body height 2024-05-30 10:51:00 153.7 cm Jose [facility] Body weight 2024-05-30 10:51:00 58.514 kg Jose Ann [facility] BMI 2024-05-30 10:51:00 24.78 kg/m2 [facility] Oxygen saturation in Arterial blood by Pulse oximetry 2024-05-30 10:51:00 94 /min [facility] [place] [facility] height 2024-05-15 10:30:00 63 [in_i] Commo n [facility] weight 2024-05-15 10:30:00 138 [lb_av] Comm on [facility] temperature 2024-05-15 10:30:00 98.0 [degF] Com mon [facility] bmi 2024-05-15 10:30:00 24.44 kg/m2 Comm on [facility] blood pressure systolic 2024-05-15 10:30:00 110 mm[Hg] Common [facility] blood pressure diastolic 2024-05-15 10:30:00 74 mm[Hg] Common [facility] height 2024-04-24 14:30:00 63 [in_i] Commo n [facility] weight 2024-04-24 14:30:00 138 [lb_av] Comm on [facility] temperature 2024-04-24 14:30:00 98.4 [degF] Com [facility] bmi 2024-04-24 14:30:00 24.44 kg/m2 Comm on [facility] blood pressure systolic 2024-04-24 14:30:00 106 mm[Hg] [facility] blood pressure diastolic 2024-04-24 14:30:00 72 mm[Hg] Common [facility] height 2024-04-11 13:30:00 63 [in_i] Commo n [facility] weight 2024-04-11 13:30:00 138 [lb_av] Comm on [facility] temperature 2024-04-11 13:30:00 98.6 [degF] Com mon [facility] bmi 2024-04-11 13:30:00 24.44 kg/m2 Comm on [facility] blood pressure systolic 2024-04-11 13:30:00 100 mm[Hg] [facility] blood pressure diastolic 2024-04-11 13:30:00 68 mm[Hg] Common [facility] Systolic blood pressure 2024-02-29 11:03:00 133 mm[Hg] [facility] Epic Diastolic blood pressure 2024-02-29 11:03:00 72 mm[Hg] [facility] Epic Heart rate 2024-02-29 11:03:00 90 /min [facility] Body temperature 2024-02-29 11:03:00 36.39 Aysha [facility] Respiratory rate 2024-02-29 11:03:00 16 /min [facility] Body height 2024-02-29 11:03:00 154.9 cm [facility] Body weight 2024-02-29 11:03:00 62.143 kg [facility] BMI 2024-02-29 11:03:00 25.89 kg/m2 [facility] Epic Systolic blood pressure 2024-02-29 11:03:00 133 mm[Hg] [place] [place] [facility] Diastolic blood pressure 2024-02-29 11:03:00 72 mm[Hg] [facility] [place] [facility] Heart rate 2024-02-29 11:03:00 90 /min Memor ial [facility] Body temperature 2024-02-29 11:03:00 36.39 Aysha [facility] Respiratory rate 2024-02-29 11:03:00 16 /min [facility] Body height 2024-02-29 11:03:00 154.9 cm [facility] 2024-02-29 11:03:00 62.143 kg [facility] BMI 2024-02-29 11:03:00 25.89 kg/m2 Jose ria [facility] height 2024-02-21 14:30:00 63 [in_i] Commo n [facility] weight 2024-02-21 14:30:00 138 [lb_av] Comm on [facility] temperature 2024-02-21 14:30:00 97.3 [degF] Com mon [facility] bmi 2024-02-21 14:30:00 24.44 kg/m2 Comm on [facility] oximetry 2024-02-21 14:30:00 97 % Commo n [facility] respiratory rate 2024-02-21 14:30:00 17 /min Common [facility] blood pressure systolic 2024-02-21 14:30:00 120 mm[Hg] [facility] blood pressure diastolic 2024-02-21 14:30:00 68 mm[Hg] [facility] Systolic blood pressure 2024-01-05 10:38:00 130 mm[Hg] [facility] Diastolic blood pressure 2024-01-05 10:38:00 89 mm[Hg] [facility] Epic Heart rate 2024-01-05 10:38:00 80 /min [facility] temperature 2024-01-05 10:38:00 36.5 [facility] Respiratory rate 2024-01-05 10:38:00 16 /min [facility] Body height 2024-01-05 10:38:00 154.9 cm [facility] Body weight 2024-01-05 10:38:00 63.957 kg [facility] BMI 2024-01-05 10:38:00 26.64 kg/m2 [facility] Systolic blood pressure 2024-01-05 10:38:00 130 mm[Hg] [facility] Diastolic blood pressure 2024-01-05 10:38:00 89 mm[Hg] [facility] Epic Heart rate 2024-01-05 10:38:00 80 /min Memor ial [facility] Body temperature 2024-01-05 10:38:00 36.5 Aysha [facility] Epic Respiratory rate 2024-01-05 10:38:00 16 /min [facility] Body height 2024-01-05 10:38:00 154.9 cm Jose [facility] Body weight 2024-01-05 10:38:00 63.957 kg [facility] 2024-01-05 10:38:00 26.64 kg/m2 Jose vasquez [facility] height 2023-10-18 13:50:00 63 [in_i] Commo n [facility] weight 2023-10-18 13:50:00 133.2 [lb_av] Co [facility] temperature 2023-10-18 13:50:00 97.9 [degF] Com [facility] bmi 2023-10-18 13:50:00 23.59 kg/m2 Comm on [facility] oximetry 2023-10-18 13:50:00 95 % Commo n [facility] blood pressure systolic 2023-10-18 13:50:00 118 mm[Hg] Common [facility] blood pressure diastolic 2023-10-18 13:50:00 70 mm[Hg] Common [facility] height 2023-10-18 13:50:00 63 [in_i] Commo n [facility] weight 2023-10-18 13:50:00 133.2 [lb_av] Co [facility] temperature 2023-10-18 13:50:00 97.9 [degF] Com [facility] bmi 2023-10-18 13:50:00 23.59 kg/m2 Comm on [facility] oximetry 2023-10-18 13:50:00 95 % Commo n [facility] blood pressure systolic 2023-10-18 13:50:00 118 mm[Hg] Common [facility] blood pressure diastolic 2023-10-18 13:50:00 70 mm[Hg] Common [facility] height 2023-06-14 15:20:00 63 [in_i] Commo n [facility] weight 2023-06-14 15:20:00 118.6 [lb_av] Co mmon [facility] temperature 2023-06-14 15:20:00 97.4 [degF] Com mon [facility] bmi 2023-06-14 15:20:00 21.01 kg/m2 Comm on [facility] oximetry 2023-06-14 15:20:00 95 % Commo n [facility] respiratory rate 2023-06-14 15:20:00 17 /min Common [facility] blood pressure systolic 2023-06-14 15:20:00 117 mm[Hg] [facility] blood pressure diastolic 2023-06-14 15:20:00 69 mm[Hg] [facility] height 2023-06-14 15:00:00 63 [in_i] Commo n [facility] weight 2023-06-14 15:00:00 118.6 [lb_av] Co mmon [facility] temperature 2023-06-14 15:00:00 97.4 [degF] Com mon [facility] bmi 2023-06-14 15:00:00 21.01 kg/m2 Comm on [facility] oximetry 2023-06-14 15:00:00 95 % Commo n [facility] respiratory rate 2023-06-14 15:00:00 17 /min Common [facility] blood pressure systolic 2023-06-14 15:00:00 117 mm[Hg] Common [facility] blood pressure diastolic 2023-06-14 15:00:00 69 mm[Hg] [facility] height 2023-03-02 16:10:00 63 [in_i] Commo n [facility] weight 2023-03-02 16:10:00 100 [lb_av] Comm on [facility] bmi 2023-03-02 16:10:00 17.71 kg/m2 Comm on [facility] height 2022-12-01 15:40:00 63 [in_i] Commo n [facility] weight 2022-12-01 15:40:00 102.8 [lb_av] Co mmon [facility] temperature 2022-12-01 15:40:00 97.2 [degF] Com [facility] bmi 2022-12-01 15:40:00 18.21 kg/m2 Comm on [facility] oximetry 2022-12-01 15:40:00 96 % Commo n [facility] respiratory rate 2022-12-01 15:40:00 16 /min Common [facility] blood pressure systolic 2022-12-01 15:40:00 112 mm[Hg] [facility] blood pressure diastolic 2022-12-01 15:40:00 62 mm[Hg] Common [facility] height 2022-09-13 15:40:00 63 [in_i] Commo n [facility] weight 2022-09-13 15:40:00 100.0 [lb_av] Co mmon [facility] temperature 2022-09-13 15:40:00 97.7 [degF] Com [facility] bmi 2022-09-13 15:40:00 17.71 kg/m2 Comm on [facility] oximetry 2022-09-13 15:40:00 99 % Commo n [facility] respiratory rate 2022-09-13 15:40:00 18 /min Common [facility] blood pressure systolic 2022-09-13 15:40:00 115 mm[Hg] Common [facility] blood pressure diastolic 2022-09-13 15:40:00 67 mm[Hg] Common [facility] height 2022-08-30 15:40:00 63 [in_i] Commo n [facility] weight 2022-08-30 15:40:00 101.2 [lb_av] Co mmon [facility] temperature 2022-08-30 15:40:00 97.8 [degF] Com [facility] bmi 2022-08-30 15:40:00 17.92 kg/m2 Comm on [facility] oximetry 2022-08-30 15:40:00 98 % Commo n [facility] respiratory rate 2022-08-30 15:40:00 17 /min Common [facility] blood pressure systolic 2022-08-30 15:40:00 117 mm[Hg] [facility] blood pressure diastolic 2022-08-30 15:40:00 71 mm[Hg] [facility] height 2022-06-10 13:10:00 63 [in_i] Commo n [facility] weight 2022-06-10 13:10:00 103.4 [lb_av] [facility]-10 13:10:00 18.31 kg/m2 Comm on [facility] oximetry 2022-06-10 13:10:00 97 % Commo n [facility] respiratory rate 2022-06-10 13:10:00 16 /min [facility] blood pressure systolic 2022-06-10 13:10:00 118 mm[Hg] [facility] blood pressure diastolic 2022-06-10 13:10:00 78 mm[Hg] [facility] height 2022-06-10 13:30:00 63 [in_i] Commo n [facility] weight 2022-06-10 13:30:00 103.4 [lb_av] Co on [facility] temperature 2022-06-10 13:30:00 97.1 [degF] Com [facility] bmi 2022-06-10 13:30:00 18.31 kg/m2 Comm on [facility] oximetry 2022-06-10 13:30:00 97 % Commo n [facility] respiratory rate 2022-06-10 13:30:00 16 /min Common [facility] blood pressure systolic 2022-06-10 13:30:00 118 mm[Hg] [facility] blood pressure diastolic 2022-06-10 13:30:00 78 mm[Hg] [facility] height 2022-02-09 10:50:00 63 [in_i] Commo n [facility] weight 2022-02-09 10:50:00 102.6 [lb_av] Co mmon [facility] temperature 2022-02-09 10:50:00 97.1 [degF] Com mon [facility] bmi 2022-02-09 10:50:00 18.17 kg/m2 Comm on [facility] oximetry 2022-02-09 10:50:00 98 % Commo n [facility] respiratory rate 2022-02-09 10:50:00 18 /min [facility] blood pressure systolic 2022-02-09 10:50:00 103 mm[Hg] [facility] blood pressure diastolic 2022-02-09 10:50:00 62 mm[Hg] Common [facility] height 2021-12-15 13:50:00 63 [in_i] Commo n [facility] weight 2021-12-15 13:50:00 110.1 [lb_av] Co mmon [facility] temperature 2021-12-15 13:50:00 97.9 [degF] Com mon [facility] bmi 2021-12-15 13:50:00 19.5 kg/m2 Commo n [facility] oximetry 2021-12-15 13:50:00 99 % Commo n [facility] respiratory rate 2021-12-15 13:50:00 18 /min Common [facility] blood pressure systolic 2021-12-15 13:50:00 107 mm[Hg] [facility] blood pressure diastolic 2021-12-15 13:50:00 61 mm[Hg] [facility] height 2021-11-26 14:00:00 63 [in_i] Commo n [facility] weight 2021-11-26 14:00:00 108.4 [lb_av] Co mmon [facility] temperature 2021-11-26 14:00:00 97.0 [degF] Com mon [facility] bmi 2021-11-26 14:00:00 19.2 kg/m2 Commo n [facility] blood pressure systolic 2021-11-26 14:00:00 122 mm[Hg] Common [facility] blood pressure diastolic 2021-11-26 14:00:00 79 mm[Hg] [facility] height 2021-11-09 11:30:00 63 [in_i] Commo n [facility] weight 2021-11-09 11:30:00 108.7 [lb_av] Co mmon [facility] temperature 2021-11-09 11:30:00 97.3 [degF] Com mon [facility] bmi 2021-11-09 11:30:00 19.25 kg/m2 Comm on [facility] oximetry 2021-11-09 11:30:00 99 % Commo n [facility] respiratory rate 2021-11-09 11:30:00 18 /min Common [facility] blood pressure systolic 2021-11-09 11:30:00 110 mm[Hg] [facility] blood pressure diastolic 2021-11-09 11:30:00 64 mm[Hg] [facility] height 2021-04-07 13:00:00 63 [in_i] Commo n [facility] weight 2021-04-07 13:00:00 105.9 [lb_av] Co mmon [facility] temperature 2021-04-07 13:00:00 97.5 [degF] Com [facility] bmi 2021-04-07 13:00:00 18.76 kg/m2 Comm on [facility] oximetry 2021-04-07 13:00:00 98 % Commo n [facility] respiratory rate 2021-04-07 13:00:00 18 /min Common [facility] blood pressure systolic 2021-04-07 13:00:00 129 mm[Hg] [facility] blood pressure diastolic 2021-04-07 13:00:00 75 mm[Hg] [facility] height 2021-04-07 13:00:00 63 [in_i] Commo n [facility] weight 2021-04-07 13:00:00 105.9 [lb_av] Co on [facility] temperature 2021-04-07 13:00:00 97.5 [degF] Com [facility] bmi 2021-04-07 13:00:00 18.76 kg/m2 Comm on [facility] oximetry 2021-04-07 13:00:00 98 % Commo n [facility] respiratory rate 2021-04-07 13:00:00 18 /min [facility] blood pressure systolic 2021-04-07 13:00:00 129 mm[Hg] [facility] blood pressure diastolic 2021-04-07 13:00:00 75 mm[Hg] [facility] Systolic (mm Hg) 2023-03-11 21:15:00 [facility] Diastolic (mm Hg) 2023-03-11 21:15:00 [facility] Heart Rate 2023-03-11 21:15:00 [facility] Height 2023-03-11 21:15:00 5 [ft_i] [facility] Weight 2023-03-11 21:15:00 [facility] BMI Calculated 2023-03-11 21:15:00 [facility] Systolic (mm Hg) 2022-11-02 20:32:00 [facility] Diastolic (mm Hg) 2022-11-02 20:32:00 [facility] Heart Rate 2022-11-02 20:32:00 [facility] Height 2022-11-02 20:32:00 5 [ft_i] [facility] Weight 2022-11-02 20:32:00 [facility] BMI Calculated 2022-11-02 20:32:00 [facility] Systolic (mm Hg) 2022-09-15 19:24:00 [facility] Diastolic (mm Hg) 2022-09-15 19:24:00 [facility] Heart Rate 2022-09-15 19:24:00 [facility] Height 2022-09-15 19:24:00 5 [ft_i] [facility] Weight 2022-09-15 19:24:00 [facility] BMI Calculated 2022-09-15 19:24:00 [facility] Systolic (mm Hg) 2019-07-20 20:01:00 [facility] Diastolic (mm Hg) 2019-07-20 20:01:00 [facility] Heart Rate 2019-07-20 20:01:00 [facility] Respitory Rate 2019-07-20 20:01:00 [facility] Temperature Oral (F) 2019-07-20 20:01:00 98.6 F [facility] Height 2019-07-20 20:01:00 152.4 cm [facility] Weight 2019-07-20 20:01:00 [facility] BMI Calculated 2019-07-20 20:01:00 [facility] Systolic (mm Hg) 2019-02-06 20:38:00 [facility] Diastolic (mm Hg) 2019-02-06 20:38:00 [facility] Heart Rate 2019-02-06 20:38:00 [facility] Respitory Rate 2019-02-06 20:38:00 [facility] Height 2019-02-06 20:38:00 157.48 cm [facility] Weight 2019-02-06 20:38:00 [facility] BMI Calculated 2019-02-06 20:38:00 [facility] Systolic (mm Hg) 2018-12-06 19:43:00 [facility] Diastolic (mm Hg) 2018-12-06 19:43:00 [facility] Heart Rate 2018-12-06 19:43:00 [facility] Respitory Rate 2018-12-06 19:43:00 [facility] Height 2018-12-06 19:43:00 160.02 cm [facility] Weight 2018-12-06 19:43:00 [facility] BMI Calculated 2018-12-06 19:43:00 [facility] Diastolic (mm Hg) 2018-10-26 19:05:00 [facility] Heart Rate 2018-10-26 19:05:00 [facility] Height 2018-10-26 19:05:00 154.94 cm [facility] BMI Calculated 2018-10-26 19:05:00 [facility] Weight 2018-10-26 19:05:00 [facility] Systolic (mm Hg) 2018-10-26 19:05:00 [facility] Weight 2018-08-24 19:31:00 [facility] BMI Calculated 2018-08-24 19:31:00 [facility] Height 2018-08-24 19:31:00 160.02 cm [facility] Systolic (mm Hg) 2018-08-24 19:31:00 [facility] Diastolic (mm Hg) 2018-08-24 19:31:00 [facility] Respitory Rate 2018-08-24 19:31:00 [facility] Heart Rate 2018-08-24 19:31:00 [facility] Diastolic (mm Hg) 2018-04-27 21:33:00 [facility] Heart Rate 2018-04-27 21:33:00 [facility] Respitory Rate 2018-04-27 21:33:00 [facility] Height 2018-04-27 21:33:00 154.94 cm [facility] Weight 2018-04-27 21:33:00 [facility] BMI Calculated 2018-04-27 21:33:00 [facility] Systolic (mm Hg) 2018-04-27 21:33:00 [facility] BMI Calculated 2018-02-23 19:42:00 [facility] Heart Rate 2018-02-23 19:42:00 [facility] Height 2018-02-23 19:42:00 160.02 cm [facility] Weight 2018-02-23 19:42:00 [facility] Systolic (mm Hg) 2018-02-23 19:42:00 [facility] Diastolic (mm Hg) 2018-02-23 19:42:00 [facility] Encounters Start Date/Time End Date/Time Encounter Type Admission Type Attending [facility] Care Department Encounter ID Source 2024-04-11 16:37:00 Outpatient Marin, Arian STLC STLC [id number] [facility] 2023-10-17 13:47:00 Outpatient Marin, Arian [facility] STLMLC [id number] [facility] 2023-06-10 10:36:00 Outpatient Marin, Arian [facility] STLMLC [id number] [facility] 2022-12-01 16:08:00 Outpatient Marin, Arian [facility] STLMLC [id number] [facility] 2022-09-13 15:38:00 Outpatient Marin, Arian STLC STLMLC [id number] [facility] 2022-06-08 09:52:00 Outpatient Marin, Arian STLC STLMLC [id number] [facility] 2022-03-23 08:22:00 Outpatient Marin, Arian STLC STLMLC [id number] [facility] 2022-03-11 14:00:00 Outpatient Marin, Arian [facility] STLMLC [id number] [facility] 2022-02-05 10:31:00 Outpatient Marin, Arian STLMLC STLMLC [id number] [facility] 2022-01-13 13:04:00 Outpatient Marin, Arian STLMLC STLMLC [id number] [facility] 2021-11-26 14:26:00 Outpatient Marin, Arian STLMLC STLMLC [id number] [facility] 2021-11-12 14:41:00 Outpatient Marin, Arian STLMLC STLMLC [id number] [facility] 2021-04-15 12:54:57 Outpatient Marin, Arian STLMLC STLMLC [id number] [facility] 2021-04-15 12:54:40 Outpatient Marin, Arian STLMLC STLMLC [id number] [facility] 2021-04-15 12:23:02 Outpatient Marin, Arian STLMLC STLMLC [id number] [facility] 2021-04-15 11:57:43 Outpatient Marin, Arian STLMLC STLMLC [id number] [facility] 2021-04-15 11:56:48 Outpatient Marin, Arian STLMLC STLMLC [id number] [facility] 2021-04-15 11:18:21 Outpatient Marin, Arian STLMLC STLMLC [id number] [facility] 2021-04-15 11:17:40 Outpatient Marin, Arian STLMLC STLMLC [id number] [facility] 2021-04-15 11:10:40 Outpatient Marin, Arian STLMLC STLMLC [id number] [facility] 2021-04-15 11:01:28 Outpatient Marin, Arian STLMLC STLMLC [id number] [facility] 2021-04-15 11:01:07 [facility] [id number] [facility] 2021-04-15 11:00:26 [id number] [facility] 2021-04-15 10:59:36 [facility] [id number] [facility] 2024-06-12 00:00:00 2024-06-12 00:00:00 OFFICE VISIT ESTAB PT LEVEL 3 STLC STLC [id number] [facility] 2024-05-30 10:45:00 2024-05-30 11:31:45 Office Visit Darleen Mccray [id number] [id number] 8.2.7.2.686 [id number] Annamaria [facility] 2024-05-30 10:41:48 2024-05-30 11:31:45 Outpatient Elective DARLEEN MCCRAY [facility] [id number] [facility] 2024-05-21 00:00:00 2024-05-21 08:30:43 Darleen Johnson [id number] [id number] 8.2.7.2.686 [id number] Annamaria [facility] 2024-05-15 00:00:00 2024-05-15 00:00:00 OFFICE VISIT ESTAB PT LEVEL 3 STLMLC STLMLC [id number] [facility] 2024-04-24 00:00:00 2024-04-24 00:00:00 OFFICE VISIT ESTAB PT LEVEL 3 STLMLC STLMLC [id number] [facility] 2024-04-14 00:00:00 2024 13:03:22 Darleen Johnson 1.2.840.114 350.1.13.70 8.2.7.2.686 [id number] Annamaria ventura [facility] 2024-04-11 00:00:00 2024-04-11 00:00:00 (CORPORATE LICENSED BROKER) New Patient [facility] [id number] [facility] 2024-03-25 00:00:00 2024-03-25 00:00:00 (WEB) [facility] [id number] [facility] 2024-03-21 00:00:00 2024-03-22 10:14:30 Refill Darleen Mccray 1.2.840.114 350.1.13.70 8.2.7.2.686 [id number] Annamaria ventura [facility] 2024-02-29 10:45:00 2024-02-29 11:32:11 Office Visit Darleen Mccray 1.2.840.114 350.1.13.70 8.2.7.2.686 [id number] 2024-02-29 10:43:56 2024-02-29 11:32:11 Outpatient Elective DARLEEN MCCRAY [facility] [id number] [facility] 2024-02-22 00:00:00 2024-02-22 00:00:00 (TEL) [facility] [id number] [facility] 2024-02-21 00:00:00 2024-02-21 00:00:00 OFFICE VISIT ESTAB PT LEVEL 4 [facility] [id number] [facility] 2024-01-28 00:00:00 2024-01-31 17:59:07 Darleen Johnson 1.2.840.114 350.1.13.70 8.2.7.2.686 [id number] Annamaria [facility] 2024-01-20 00:00:00 2024-01-23 11:13:45 Darleen Johnson 1.2.840.114 350.1.13.70 8.2.7.2.686 [id number] Annamaria ventura [facility] 2024-01-04 00:00:00 2024-01-05 16:23:44 Telephone Valentina Perez [facility] 1.2.840.114 350.1.13.70 8.2.7.2.686 [id number] [facility] 2024-01-05 10:05:23 2024-01-05 11:00:04 [facility] [id number] 2024-01-05 10:00:00 2024-01-05 11:00:04 Office Visit Darleen Mccray 1.2.840.114 350.1.13.70 8.2.7.2.686 [id number] [facility] 2023-12-26 00:00:00 2023-12-27 17:58:16 Telephone Mary Lara Mary Ciara 1.2.840.114 350.1.13.70 8.2.7.2.686 [id number] [facility] 2023-10-18 00:00:00 2023-10-18 00:00:00 OFFICE VISIT ESTAB PT LEVEL 4 [facility] [id number] [facility] 2023-10-12 00:00:00 2023-10-12 00:00:00 (TEL) [facility] [id number] [facility] 2023-07-01 15:00:00 2023-07-01 15:00:00 Outpatient MHIE MHIE [id number] Annamaria Thakurann 2023-06-14 00:00:00 2023-06-14 00:00:00 SUB ANNUAL [facility] WELLNESS VISIT [facility] [id number] [facility] 2023-06-14 00:00:00 2023-06-14 00:00:00 OFFICE VISIT ESTAB PT LEVEL 4 STLMLC STLMLC [id number] [facility] 2023-04-08 00:00:00 2023-04-08 00:00:00 (WEB) STLMLC STLMLC [id number] [facility] 2023-03-11 21:15:00 2023-03-12 05:59:59 Outpatient MHIE [facility] [place] [id number] Annamaria Ann 2023-03-02 00:00:00 2023-03-02 00:00:00 (WEB) STLMLC STLMLC [id number] [facility] 2023-03-02 00:00:00 2023-03-02 00:00:00 OFFICE VISIT ESTAB PT LEVEL 4 STLMLC STLMLC [id number] [facility] 2022-12-01 00:00:00 2022-12-01 00:00:00 OFFICE VISIT ESTAB PT LEVEL 4 STLMLC STLMLC [id number] [facility] 2022-11-02 20:30:00 2022-11-03 04:59:59 Outpatient MHIE [facility] [place] [id number] Annamaria Ann 2022-10-19 00:00:00 2022-10-19 00:00:00 (WEB) STLMLC STLMLC [id number] [facility] 2022-10-19 00:00:00 2022-10-19 00:00:00 (WEB) STLMLC STLMLC [id number] [facility] 2022-10-19 00:00:00 2022-10-19 00:00:00 (WEB) STLMLC STLMLC [id number] [facility] 2022-10-18 00:00:00 2022-10-18 00:00:00 (WEB) STLMLC STLMLC [id number] [facility] 2022-09-15 19:30:00 2022-09-16 04:59:59 Outpatient MHIE [facility] [place] [id number] Annamaria Ann 2022-09-13 00:00:00 2022-09-13 00:00:00 (HOSP F/U) Hospital Follow Up STLMLC STLMLC [id number] [facility] 2022-09-10 00:00:00 2022-09-10 00:00:00 (WEB) STLMLC STLMLC [id number] [facility] 2022-09-07 00:00:00 2022-09-07 00:00:00 (TEL) STLMLC STLMLC [id number] [facility] 2022-08-31 00:00:00 2022-08-31 00:00:00 (TEL) STLMLC STLMLC [id number] [facility] 2022-08-30 00:00:00 2022-08-30 00:00:00 OFFICE VISIT ESTAB PT LEVEL 4 STLMLC STLMLC [id number] [facility] 2022-08-03 00:00:00 2022-08-03 00:00:00 (TEL) STLMLC STLMLC [id number] [facility] 2022-06-10 00:00:00 2022-06-10 00:00:00 OFFICE VISIT ESTAB PT LEVEL 4 STLMLC STLMLC [id number] [facility] 2022-06-10 00:00:00 2022-06-10 00:00:00 SUB ANNUAL [facility] WELLNESS VISIT STLMLC STLMLC [id number] [facility] 2022-06-04 00:00:00 2022-06-04 00:00:00 (TEL) STLMLC STLMLC [id number] [facility] 2022-05-05 00:00:00 2022-05-05 00:00:00 (WEB) STLMLC STLMLC [id number] [facility] 2022-03-23 00:00:00 2022-03-23 00:00:00 (WEB) STLMLC STLMLC [id number] [facility] 2022-03-22 00:00:00 2022-03-22 00:00:00 (WEB) STLMLC STLMLC [id number] [facility] 2022-03-11 00:00:00 2022-03-11 00:00:00 (WEB) STLMLC STLMLC [id number] [facility] 2022-02-09 00:00:00 2022-02-09 00:00:00 OFFICE VISIT ESTAB PT LEVEL 4 STLMLC STLMLC [id number] [facility] 2022-02-01 00:00:00 2022-02-01 00:00:00 (TEL) STLMLC STLMLC [id number] [facility] 2022-01-14 00:00:00 2022-01-14 00:00:00 (TEL) STLMLC STLMLC [id number] [facility] 2021-12-24 15:30:00 2021-12-24 15:30:00 Ambulatory Pre-Reg nullFlavo r [facility] [place] [id number] [facility] 2021-12-15 00:00:00 2021-12-15 00:00:00 OFFICE VISIT EST PT LEVEL 3 STLMLC STLMLC [id number] [facility] 2021-12-10 00:00:00 2021-12-10 00:00:00 (TEL) STLMLC STLMLC [id number] [facility] 2021-12-01 00:00:00 2021-12-01 00:00:00 (TEL) STLMLC STLMLC [id number] [facility] 2021-11-30 00:00:00 2021-11-30 00:00:00 (TEL) STLMLC STLMLC [id number] [facility] 2021-11-26 00:00:00 2021-11-26 00:00:00 OFFICE VISIT NEW PT LEVEL 3 STLMLC STLMLC [id number] [facility] 2021-11-12 00:00:00 2021-11-12 00:00:00 (TEL) STLMLC STLMLC [id number] [facility] 2021-11-09 00:00:00 2021-11-09 00:00:00 OFFICE VISIT ESTAB PT LEVEL 4 STLMLC STLMLC [id number] [facility] 2021-10-27 00:00:00 2021-10-27 00:00:00 (TEL) STLMLC STLMLC [id number] [facility] 2021-04-07 00:00:00 2021-04-07 00:00:00 OFFICE VISIT ESTAB PT LEVEL 4 STLMLC STLMLC [id number] [facility] 2021-04-07 00:00:00 2021-04-07 00:00:00 SUB ANNUAL [facility] WELLNESS VISIT STLMLC STLMLC [id number] [facility] 2021-03-05 00:00:00 2021-03-05 00:00:00 (TEL) STLMLC STLMLC [id number] [facility] 2021-01-08 00:00:00 2021-01-08 00:00:00 (TEL) STLMLC STLMLC [id number] [facility] 2021-01-05 18:15:00 2021-01-06 04:59:59 Outpatient nullFlavo r [facility] [place] [id number] Annamaria Ann 2020-12-24 15:15:00 2020-12-25 04:59:59 Outpatient nullFlavo r [facility] [place] [id number] 2020-10-07 00:00:00 2020-10-07 00:00:00 Outpatient STLMLC STLMLC [id number] [facility] 2020-10-01 00:00:00 2020-10-01 00:00:00 Outpatient STLMLC STLMLC [id number] [facility] 2020-07-09 00:00:00 2020-07-09 00:00:00 Outpatient STLMLC STLMLC [id number] [facility] 2020-04-10 00:00:00 2020-04-10 00:00:00 Outpatient STLMLC STLMLC [id number] [facility] 2020-03-11 00:00:00 2020-03-11 00:00:00 Outpatient STLMLC STLMLC [id number] [facility] 2020-03-07 00:00:00 2020-03-07 00:00:00 Outpatient STLMLC STLMLC [id number] [facility] 2020-03-06 00:00:00 2020-03-06 00:00:00 Outpatient STLMLC STLMLC [id number] [facility] 2020-01-22 20:00:00 2020-01-22 20:00:00 Ambulatory Pre-Reg nullFlavo r [facility] [place] [id number] [facility] 2020-01-22 20:00:00 2020-01-22 20:00:00 Ambulatory Pre-Reg nullFlavo r [facility] [place] [id number] [facility] 2020-01-09 00:00:00 2020-01-09 00:00:00 Outpatient STLMLC STLMLC [id number] [facility] 2020-01-09 00:00:00 2020-01-09 00:00:00 Outpatient STLMLC STLMLC [id number] [facility] 2019-11-30 14:25:00 2019-11-30 14:25:[address] [facility] [id number] [facility] 2019-10-08 17:59:00 2019-10-08 17:59:00 [address] [facility] [address] [facility] [id number] [facility] 2019-10-08 14:15:00 2019-10-08 14:15:00 [facility] [address] [facility] [facility] [id number] [facility] 2019-08-31 13:00:00 2019-08-31 13:00:00 [facility] [id number] [facility] 2019-07-20 19:45:00 2019-07-21 04:59:59 Outpatient nullFlavo r [facility] [place] [id number] Annamaria Ann 2019-07-09 14:15:00 2019-07-09 14:15:[address] [facility] [address] [facility] [facility] [id number] [facility] 2019-07-02 13:09:00 2019-07-02 13:09:00 [facility] [facility] [address] [facility] [place] [facility] [id number] [facility] 2019-06-29 09:32:00 2019-06-29 09:32:[address] [facility] [place] [facility] [id number] [facility] 2019-06-13 09:02:00 2019-06-13 09:02:[address] [facility] [place] [facility] [id number] [facility] 2019-06-06 18:30:00 2019-06-06 18:30:00 Ambulatory Pre-Reg nullFlavo r [facility] [id number] 07 Annamaria Ann 2019-05-17 13:15:00 2019-05-17 13:15:[address] [facility] [place] [facility] [id number] [facility] 2019-04-06 10:30:00 2019-04-06 10:30:[address] [facility] [place] [facility] [facility] [id number] [facility] 2019-03-30 08:13:00 2019-03-30 08:13:[address] [facility] [place] [facility] Medicine [id number] [facility] 2019-03-01 13:00:00 2019-03-01 13:00:00 [facility] [id number] [facility] 2019-02-06 20:30:00 2019-02-07 05:59:59 Outpatient nullFlavo r [facility] [id number] Annamaria Ann 2019-01-03 14:15:00 2019-01-03 14:15:[address] [facility] [facility] [place] [facility] Medicine [id number] [facility] 2018-12-06 19:45:00 2018-12-07 04:59:59 Outpatient nullFlavo r [facility]rology [facility] [id number] Annamaria Ann 2018-11-28 14:30:00 2018-11-28 14:30:00 [facility] [facility] [id number] [facility] 2018-11-22 12:23:00 2018-11-22 12:23:00 [facility] [id number] [facility] 2018-11-09 14:21:00 2018-11-09 14:21:00 [facility] [place] [facility] [id number] [facility] 2018-10-26 19:00:00 2018-10-27 04:59:59 Outpatient nullFlavo r [facility]rology [facility] [id number] Annamaria Ann 2018-10-13 13:30:00 2018-10-13 13:30:00 [facility] [place] [facility] [id number] [facility] 2018-10-03 14:00:00 2018-10-03 14:00:[address] [facility] [facility] [place] [facility] Medicine [id number] [facility] 2018-09-08 14:45:00 2018-09-08 14:45:00 [facility] [place] [facility] [id number] [facility] 2018-09-04 15:07:00 2018-09-04 15:07:[address] [facility] [facility] [address] [facility] Medicine [id number] [facility] 2018-09-04 09:45:00 2018-09-04 09:45:00 [facility] [place] [facility] [id number] [facility] 2018-08-24 19:30:00 2018-08-25 04:59:59 Outpatient nullFlavo r [facility]rology [facility] [id number] Annamaria Ann 2018-07-13 13:45:00 2018-07-13 13:45:00 [facility] [place] [facility] [id number] [facility] 2018-07-04 13:45:00 2018-07-04 13:45:[address] [facility] [facility] [id number] [facility] 2018-04-27 21:15:00 2018-04-28 05:59:59 Outpatient nullFlavo r [facility] [id number] Annamaria Ann 2018-04-06 13:45:00 2018-04-06 13:45:[address] [facility] [facility] [id number] [facility] 2018-02-23 19:15:00 2018-02-24 05:59:59 Outpatient nullFlavo r [facility] [id number] Annamaria Ann 2018-01-05 14:16:00 2018-01-07 04:59:59 Phone Message nullFlavo r [facility]rology [facility] [id number] Annamaria Ann 2018-01-04 16:14:00 2018-01-04 16:14:[address] [facility] [facility] [place] [facility] Medicine [id number] [facility] 2018-01-04 14:30:00 2018-01-04 14:30:[address] [facility] [facility] [id number] [facility] 2017-09-12 14:15:00 2017-09-12 14:15:[address] [facility] [facility] [id number] [facility] 2017-08-25 13:00:00 2017-08-25 13:00:00 Outpatient [facility] [id number] Annamaria Ann 2017-08-12 16:01:00 2017-08-12 16:01:00 Outpatient [facility] [id number] [facility] 2017-07-28 10:26:00 2017-07-28 10:26:00 Outpatient [facility] [id number] [facility] 2017-06-15 13:15:00 2017-06-15 13:15:00 Outpatient [facility] [id number] [facility] Results Test Description Test Time Test Comments Results Result Co mments Source ALBUMIN/CREATININE RATIO, RANDOM [id number] 00:00:00* Test Item Value Reference Range Interpretation Comme nts ALBUMIN, URINE, RANDOM (test code = 20217-9) 0.4 MG/DL NOT ESTAB MG/DL CALC ALBUMIN/CREAT, RND (test code = 95824-0) 15 MG/G See_Comment [Automated [employer]] The system which generated this result transmitted reference range: <30 MG/G. The reference range was not used to interpret this result as normal/abnormal. CREATININE, URINE, CONC. (test code = 2161-8) 26.0 MG/DL NOT ESTAB MG/DL [id number] 00:00:00* Test Item Value Reference Range Interpretation Comme nts FERRITIN (test code = 40321-9) 20 NG/ML See_Comment [Automated Exacter[employer] ge] The system which generated this result transmitted reference range: 13-200 NG/ML. The reference range was not used to interpret this result as normal/abnormal. CBC W/AUTO [id number] 00:00:00* Test Item Value Reference Range Interpretation Comme nts NUCLEATED RBCS (test code = 99201-9) 0.0 /100 WBC'S See_Comment [Automated Exactera ge] The system which generated this result transmitted reference range: 0.0 /100 WBC'S. The reference range was not used to interpret this result as normal/abnormal. ABSOLUTE EOSINOPHILS (test code = 93077-3) 0.14 K/UL See_Comment [Automated messa ge] The system which generated this result transmitted reference range: 0.00-0.50 K/UL. The reference range was not used to interpret this result as normal/abnormal. ABSOLUTE LYMPHOCYTES (test code = 45325-6) 0.89 K/UL See_Comment L [Automated messa ge] The system which generated this result transmitted reference range: 1.00-4.00 K/UL. The reference range was not used to interpret this result as normal/abnormal. ABSOLUTE MONOCYTES (test code = 77098-3) 0.47 K/UL See_Comment [Automated messa ge] The system which generated this result transmitted reference range: 0.20-1.00 K/UL. The reference range was not used to interpret this result as normal/abnormal. ABSOLUTE NEUTROPHILS (test code = 57173-3) 3.11 K/UL See_Comment [Automated messa ge] The system which generated this result transmitted reference range: 1.50-7.50 K/UL. The reference range was not used to interpret this result as normal/abnormal. BASOPHILS (test code = 73674-1) 1.1 % EOSINOPHILS (test code = 46418-8) 3.0 % HEMATOCRIT (test code = 15030-5) 33.0 % See_Comment L [Automated messa ge] The system which generated this result transmitted reference range: 34.0-45.0 %. The reference range was not used to interpret this result as normal/abnormal. HEMOGLOBIN (test code = 718-7) 10.8 G/DL See_Comment L [Automated messa ge] The system which generated this result transmitted reference range: 11.5-15.5 G/DL. The reference range was not used to interpret this result as normal/abnormal. LYMPHOCYTES (test code = 42921-7) 19.1 % MCH (test code = 70993-7) 29.0 PG See_Comment [Automated messa ge] The system which generated this result transmitted reference range: 25.0-33.0 PG. The reference range was not used to interpret this result as normal/abnormal. MCHC (test code = 94307-9) 32.7 G/DL See_Comment [Automated messa ge] The system which generated this result transmitted reference range: 31.0-36.0 G/DL. The reference range was not used to interpret this result as normal/abnormal. MCV (test code = 43395-1) 88.7 fL See_Comment [Automated messa ge] The system which generated this result transmitted reference range: 80.0-99.0 fL. The reference range was not used to interpret this result as normal/abnormal. MONOCYTES (test code = 17840-1) 10.1 % NEUTROPHILS (test code = 33521-2) 66.5 % PLATELET COUNT (test code = 28594-1) 422 K/UL See_Comment H [Automated messa ge] The system which generated this result transmitted reference range: 130-400 K/UL. The reference range was not used to interpret this result as normal/abnormal. RBC (test code = 31720-9) 3.72 M/UL See_Comment L [Automated messa ge] The system which generated this result transmitted reference range: 3.80-5.40 M/UL. The reference range was not used to interpret this result as normal/abnormal. RDW (test code = 16623-2) 13.7 % See_Comment [Automated messa ge] The system which generated this result transmitted reference range: 11.5-15.0 %. The reference range was not used to interpret this result as normal/abnormal. WBC (test code = 58439-4) 4.7 K/UL See_Comment [Automated messa ge] The system which generated this result transmitted reference range: 3.5-11.0 K/UL. The reference range was not used to interpret this result as normal/abnormal. Notes Date/Time Note Provider Source 2024-05-30 12:59:15 [facility]2025-03-12 12:59:15* Darleen Mccray MD - 05/30/2024 10:45 AM CDT History of Present Illness Insomnia Fell and broke left arm, trying to be managed non surgically. Memory continues to worsen. Has lost weight since last visit. Here with her son. Insomnia issues at least seem improved. Allergies as of 05/30/2024 - Reviewed 05/30/2024 Allergen Reaction Noted Codeine 05/30/2024 Nsaids 01/05/2024 Sulfa antibiotics 01/05/2024 has a current medication list which includes the following prescription(s): aspirin ec, baclofen, duloxetine, lisinopril, memantine, memantine, and trazodone. Vitals:05/30/24 1051 BP: (!) 99/58 Pulse: 98 Resp: 16 Temp: 36.6 ?C (97.9 ?F) SpO2: 94% Neurological Exam Mental Status Awake and alert. Speech is normal. Forgetful. Cranial NervesCN II: Visual acuity is normal. CN III, IV, : Extraocular movements intact bilaterally. Pupils equal round and reactive to light bilaterally. CN VII: Full and symmetric facial movement. CN XII: Tongue midline without atrophy or fasciculations. MotorStrength is 5/5 throughout all four extremities. Decreased ROM left arm. SensoryLight touch is normal in upper and lower extremities. Temperature is normal in upper and lower extremities. Vibration is normal in upper and lower extremities. ReflexesDeep tendon reflexes: Symmetric. GaitCasual gait: Shuffling gait. No results found for this or any previous visit. 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 [facility]2025-03-12 12:59:15Upcoming Encounters Health Maintenance Due Date Last Done Comments Bone Density Scan 1940 Diabetes: Hemoglobin A1C 1940 Lipid Panel 1940 Medicare Annual Wellness (AWV) 1940 Annual Physical 1943 Diabetes: Foot Exam 1950 Diabetes: Retinopathy Screening 1950 DTaP/Tdap/Td Vaccines (1 - Tdap) 1959 Diabetes: Urine Protein Screening 1959 Pneumococcal Vaccine: 50+ Ye ars (1 of 2 - PCV) 1959 Zoster Vaccines (1 of 2) 1990 Respiratory Syncytial Virus (RSV) or >=60 (1 - 1-dose 75+ series) 2015 Influenza Vaccine (#1) 2023 HIB Vaccines Aged Out No longer eligi ble based on patient's age to complete this topic HPV Vaccines Aged Out No longer eligi ble based on patient's age to complete this topic Hepatitis A Vaccines Aged Out No long er eligible based on patient's age to complete this topic Hepatitis B Vaccines Aged Out No long er eligible based on patient's age to complete this topic IPV Vaccines Aged Out No longer eligi ble based on patient's age to complete this topic Meningococcal Vaccine Aged Out No howie josephine eligible based on patient's age to complete this topic Rotavirus Vaccines Aged Out No longer eligible based on patient's age to complete this topic [place] 587515-03-12 12:59:15 Diagnosis Moderate late onset Alzheime r's dementia with other behavioral disturbance (HCC) - [facility]mn[facility]agk2725-91-13 12:59:15 [place] 587515-03-12 12:59:15* [facility] CenterFopgbcx9414-77-69 12:59:15 [place] 587515-03-12 12:59:15* Darleen Mccray MD - 05/30/2024 10:45 AM CDT History of Present Illness Insomnia Fell and broke left arm, trying to be managed non surgically. Memory continues to worsen. Has lost weight since last visit. Here with her son. Insomnia issues at least seem improved. Allergies as of 05/30/2024 - Reviewed 05/30/2024 Allergen Reaction Noted Codeine 05/30/2024 Nsaids 01/05/2024 Sulfa antibiotics 01/05/2024 has a current medication list which includes the following prescription(s): aspirin ec, baclofen, duloxetine, lisinopril, memantine, memantine, and trazodone. Vitals:05/30/24 1051 BP: (!) 99/58 Pulse: 98 Resp: 16 Temp: 36.6 ?C (97.9 ?F) SpO2: 94% Neurological Exam Mental Status Awake and alert. Speech is normal. Forgetful. Cranial NervesCN II: Visual acuity is normal. CN III, IV, : Extraocular movements intact bilaterally. Pupils equal round and reactive to light bilaterally. CN VII: Full and symmetric facial movement. CN XII: Tongue midline without atrophy or fasciculations. MotorStrength is 5/5 throughout all four extremities. Decreased ROM left arm. SensoryLight touch is normal in upper and lower extremities. Temperature is normal in upper and lower extremities. Vibration is normal in upper and lower extremities. ReflexesDeep tendon reflexes: Symmetric. GaitCasual gait: Shuffling gait. No results found for this or any previous visit. 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 [facility] CenterAcvkroo2980-12-03 12:59:15Upcoming Encounters Health Maintenance Due Date Last Done Comments Bone Density Scan 1940 Diabetes: Hemoglobin A1C 1940 Lipid Panel 1940 Medicare Annual Wellness (AWV) 1940 Annual Physical 1943 Diabetes: Foot Exam 1950 Diabetes: Retinopathy Screening 1950 DTaP/Tdap/Td Vaccines (1 - Tdap) 1959 Diabetes: Urine Protein Screening 1959 Pneumococcal Vaccine: 50+ Ye ars (1 of 2 - PCV) 1959 Zoster Vaccines (1 of 2) 1990 Respiratory Syncytial Virus (RSV) or >=60 (1 - 1-dose 75+ series) 2015 Influenza Vaccine (#1) 2023 HIB Vaccines Aged Out No longer eligi ble based on patient's age to complete this topic HPV Vaccines Aged Out No longer eligi ble based on patient's age to complete this topic Hepatitis A Vaccines Aged Out No long er eligible based on patient's age to complete this topic Hepatitis B Vaccines Aged Out No long er eligible based on patient's age to complete this topic IPV Vaccines Aged Out No longer eligi ble based on patient's age to complete this topic Meningococcal Vaccine Aged Out No howie josephine eligible based on patient's age to complete this topic Rotavirus Vaccines Aged Out No longer eligible based on patient's age to complete this topic [facility] CenterUmgrkpg3712-42-10 12:59:15 Diagnosis Moderate late onset Alzheime r's dementia with other behavioral disturbance (HCC) - Primary [facility] CenterVcrxeoj4886-84-47 12:59:15 [facility] CenterVpbiqig8779-72-28 08:30:53* [facility] CenterYyjhvhj2959-48-85 08:30:53 [facility] CenterLiogxly9991-80-16 08:30:53Upcoming Encounters Health Maintenance Due Date Last Done Comments Bone Density Scan 1940 Diabetes: Hemoglobin A1C 1940 Lipid Panel 1940 Medicare Annual Wellness (AWV) 1940 Annual Physical 1943 Pneumococcal Vaccine: 65+ Ye ars (1 of 2 - PCV) 1946 Diabetes: Foot Exam 1950 Diabetes: Retinopathy Screening 1950 DTaP/Tdap/Td Vaccines (1 - Tdap) 1959 Diabetes: Urine Protein Screening 1959 Zoster Vaccines (1 of 2) 1990 Respiratory Syncytial Virus (RSV) or >=60 (1 - 1-dose 75+ series) 2015 Influenza Vaccine (#1) 2023 HIB Vaccines Aged Out No longer eligi ble based on patient's age to complete this topic HPV Vaccines Aged Out No longer eligi ble based on patient's age to complete this topic Hepatitis A Vaccines Aged Out No long er eligible based on patient's age to complete this topic Hepatitis B Vaccines Aged Out No long er eligible based on patient's age to complete this topic IPV Vaccines Aged Out No longer eligi ble based on patient's age to complete this topic Meningococcal Vaccine Aged Out No howie josephine eligible based on patient's age to complete this topic Rotavirus Vaccines Aged Out No longer eligible based on patient's age to complete this topic [facility]Wqikbjw3607-27-48 08:30:53 [facility] CenterXpmcdkb2737-35-44 13:04:45* [facility] CenterXjfncoh3703-75-60 13:04:45 [facility] CenterKjlcrfx6432-65-59 13:04:45Upcoming Encounters Health Maintenance Due Date Last Done Comments Bone Density Scan 1940 Diabetes: Hemoglobin A1C 1940 Lipid Panel 1940 Medicare Annual Wellness (AWV) 1940 Annual Physical 1943 Pneumococcal Vaccine: 65+ Ye ars (1 of 2 - PCV) 1946 Diabetes: Foot Exam 1950 Diabetes: Retinopathy Screening 1950 DTaP/Tdap/Td Vaccines (1 - Tdap) 1959 Diabetes: Urine Protein Screening 1959 Zoster Vaccines (1 of 2) 1990 Respiratory Syncytial Virus (RSV) or >=60 (1 - 1-dose 75+ series) 2015 Influenza Vaccine (#1) 2023 HIB Vaccines Aged Out No longer eligi ble based on patient's age to complete this topic HPV Vaccines Aged Out No longer eligi ble based on patient's age to complete this topic Hepatitis A Vaccines Aged Out No long er eligible based on patient's age to complete this topic Hepatitis B Vaccines Aged Out No long er eligible based on patient's age to complete this topic IPV Vaccines Aged Out No longer eligi ble based on patient's age to complete this topic Meningococcal Vaccine Aged Out No howie josephine eligible based on patient's age to complete this topic Rotavirus Vaccines Aged Out No longer eligible based on patient's age to complete this topic [facility] CenterUvxryvu8077-36-15 13:04:45 [facility] CenterFqxqxvv4604-74-16 10:14:36 [facility] CenterNsjnixj9559-87-42 10:14:36Upcoming Encounters Health Maintenance Due Date Last Done Comments Bone Density Scan 1940 Diabetes: Hemoglobin A1C 1940 Lipid Panel 1940 Medicare Annual Wellness (AWV) 1940 Annual Physical 1943 Pneumococcal Vaccine: 65+ Ye ars (1 of 2 - PCV) 1946 Diabetes: Foot Exam 1950 Diabetes: Retinopathy Screening 1950 DTaP/Tdap/Td Vaccines (1 - Tdap) 1959 Diabetes: Urine Protein Screening 1959 Zoster Vaccines (1 of 2) 1990 Respiratory Syncytial Virus (RSV) or >=60 (1 - 1-dose 75+ series) 2015 Influenza Vaccine (#1) 2023 HIB Vaccines Aged Out No longer eligi ble based on patient's age to complete this topic HPV Vaccines Aged Out No longer eligi ble based on patient's age to complete this topic Hepatitis A Vaccines Aged Out No long er eligible based on patient's age to complete this topic Hepatitis B Vaccines Aged Out No long er eligible based on patient's age to complete this topic IPV Vaccines Aged Out No longer eligi ble based on patient's age to complete this topic Meningococcal Vaccine Aged Out No howie josephine eligible based on patient's age to complete this topic Rotavirus Vaccines Aged Out No longer eligible based on patient's age to complete this topic [facility] CenterLohjczg8195-59-02 10:14:36 [facility] CenterIvcnczp4281-71-77 10:14:36* [facility] CenterNgpulrf4944-72-46 12:08:43* [facility] CenterQovphzq1334-90-31 12:08:43 [facility] CenterDaoleed4839-67-74 12:08:43* Darleen Mccray MD - 02/29/2024 10:45 AM WEB ANALYTICS SPECIALIST History of Present Illness Memory Loss Sleeping better on the trazodone on Namenda for the memory, here with her caregiver. No new problems otherwise Allergies as of 02/29/2024 - Reviewed 02/29/2024 Allergen Reaction Noted Nsaids 01/05/2024 Sulfa antibiotics 01/05/2024 has a current medication list which includes the following prescription(s): aspirin ec, baclofen, duloxetine, lisinopril, memantine, and trazodone. Vitals:02/29/24 1103 BP: 133/72 Pulse: 90 Resp: 16 Temp: 36.4 ?C (97.5 ?F) Neurological Exam Mental Status Awake and alert. Speech is normal. Forgetful. Cranial NervesCN II: Visual acuity is normal. CN III, IV, : Extraocular movements intact bilaterally. Pupils equal round and reactive to light bilaterally. CN VII: Full and symmetric facial movement. CN XII: Tongue midline without atrophy or fasciculations. MotorStrength is 5/5 throughout all four extremities. SensoryLight touch is normal in upper and lower extremities. Temperature is normal in upper and lower extremities. Vibration is normal in upper and lower extremities. ReflexesDeep tendon reflexes: Symmetric. GaitCasual gait is normal including stance, stride, and arm swing. No results found for this or any previous visit. 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 ANALYTICS SPECIALIST [facility] CenterGqkcqgj3636-47-39 12:08:43Upcoming Encounters Health Maintenance Due Date Last Done Comments Bone Density Scan 1940 Diabetes: Hemoglobin A1C 1940 Lipid Panel 1940 Medicare Annual Wellness (AWV) 1940 Annual Physical 1943 Pneumococcal Vaccine: 65+ Ye ars (1 of 2 - PCV) 1946 Diabetes: Foot Exam 1950 Diabetes: Retinopathy Screening 1950 DTaP/Tdap/Td Vaccines (1 - Tdap) 1959 Diabetes: Urine Protein Screening 1959 Zoster Vaccines (1 of 2) 1990 Respiratory Syncytial Virus (RSV) or >=60 (1 - 1-dose 75+ series) 2015 Influenza Vaccine (#1) 2023 HIB Vaccines Aged Out No longer eligi ble based on patient's age to complete this topic HPV Vaccines Aged Out No longer eligi ble based on patient's age to complete this topic Hepatitis A Vaccines Aged Out No long er eligible based on patient's age to complete this topic Hepatitis B Vaccines Aged Out No long er eligible based on patient's age to complete this topic IPV Vaccines Aged Out No longer eligi ble based on patient's age to complete this topic Meningococcal Vaccine Aged Out No howie josephine eligible based on patient's age to complete this topic Rotavirus Vaccines Aged Out No longer eligible based on patient's age to complete this topic [facility] CenterTkodcyc3234-00-50 12:08:43 Diagnosis Moderate late onset Alzheime r's dementia with other behavioral disturbance (HCC) - Primary Insomnia due to medical condition Organic insomnia, unspecified [facility] CenterSgybqyo8232-23-26 12:08:43 [facility] CenterSvgvofn5706-12-28 12:08:43* [facility] CenterPluafhs9519-58-15 12:08:43 [facility] CenterRbqvxip4831-97-11 12:08:43* Darleen Mccray MD - 02/29/2024 10:45 AM WEB ANALYTICS SPECIALIST History of Present Illness Memory Loss Sleeping better on the trazodone on Namenda for the memory, here with her caregiver. No new problems otherwise Allergies as of 02/29/2024 - Reviewed 02/29/2024 Allergen Reaction Noted Nsaids 01/05/2024 Sulfa antibiotics 01/05/2024 has a current medication list which includes the following prescription(s): aspirin ec, baclofen, duloxetine, lisinopril, memantine, and trazodone. Vitals:02/29/24 1103 BP: 133/72 Pulse: 90 Resp: 16 Temp: 36.4 ?C (97.5 ?F) Neurological Exam Mental Status Awake and alert. Speech is normal. Forgetful. Cranial NervesCN II: Visual acuity is normal. CN III, IV, : Extraocular movements intact bilaterally. Pupils equal round and reactive to light bilaterally. CN VII: Full and symmetric facial movement. CN XII: Tongue midline without atrophy or fasciculations. MotorStrength is 5/5 throughout all four extremities. SensoryLight touch is normal in upper and lower extremities. Temperature is normal in upper and lower extremities. Vibration is normal in upper and lower extremities. ReflexesDeep tendon reflexes: Symmetric. GaitCasual gait is normal including stance, stride, and arm swing. No results found for this or any previous visit. 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 ANALYTICS SPECIALIST [facility] [id number] 12:08:43Upcoming Encounters Health Maintenance Due Date Last Done Comments Bone Density Scan 1940 Diabetes: Hemoglobin A1C 1940 Lipid Panel 1940 Medicare Annual Wellness (AWV) 1940 Annual Physical 1943 Pneumococcal Vaccine: 65+ Ye ars (1 of 2 - PCV) 1946 Diabetes: Foot Exam 1950 Diabetes: Retinopathy Screening 1950 DTaP/Tdap/Td Vaccines (1 - Tdap) 1959 Diabetes: Urine Protein Screening 1959 Zoster Vaccines (1 of 2) 1990 Respiratory Syncytial Virus (RSV) or >=60 (1 - 1-dose 75+ series) 2015 Influenza Vaccine (#1) 2023 HIB Vaccines Aged Out No longer eligi ble based on patient's age to complete this topic HPV Vaccines Aged Out No longer eligi ble based on patient's age to complete this topic Hepatitis A Vaccines Aged Out No long er eligible based on patient's age to complete this topic Hepatitis B Vaccines Aged Out No long er eligible based on patient's age to complete this topic IPV Vaccines Aged Out No longer eligi ble based on patient's age to complete this topic Meningococcal Vaccine Aged Out No howie josephine eligible based on patient's age to complete this topic Rotavirus Vaccines Aged Out No longer eligible based on patient's age to complete this topic [facility] [id number] 12:08:43 Diagnosis Moderate late onset Alzheime r's dementia with other behavioral disturbance (HCC) - Primary Insomnia due to medical condition Organic insomnia, unspecified [facility] [id number] 12:08:43 [facility] [id number] 17:59:18* [facility] [id number] 17:59:18 [facility] [id number] 17:59:18Upcoming Encounters Health Maintenance Due Date Last Done Comments Bone Density Scan 1940 Diabetes: Hemoglobin A1C 1940 Lipid Panel 1940 Medicare Annual Wellness (AWV) 1940 Annual Physical 1943 Pneumococcal Vaccine: 65+ Ye ars (1 of 2 - PCV) 1946 Diabetes: Foot Exam 1950 Diabetes: Retinopathy Screening 1950 DTaP/Tdap/Td Vaccines (1 - Tdap) 1959 Diabetes: Urine Protein Screening 1959 Zoster Vaccines (1 of 2) 1990 Respiratory Syncytial Virus (RSV) or >=60 (1 - 1-dose 60+ series) 2000 Influenza Vaccine (#1) 2023 HIB Vaccines Aged Out No longer eligi ble based on patient's age to complete this topic HPV Vaccines Aged Out No longer eligi ble based on patient's age to complete this topic Hepatitis A Vaccines Aged Out No long er eligible based on patient's age to complete this topic Hepatitis B Vaccines Aged Out No long er eligible based on patient's age to complete this topic IPV Vaccines Aged Out No longer eligi ble based on patient's age to complete this topic Meningococcal Vaccine Aged Out No howie josephine eligible based on patient's age to complete this topic Rotavirus Vaccines Aged Out No longer eligible based on patient's age to complete this topic [facility] [id number] 17:59:18 [facility] [id number] 11:13:52* [id number] 11:13:52 [facility] [id number] 11:13:52Upcoming Encounters Health Maintenance Due Date Last Done Comments Bone Density Scan 1940 Diabetes: Hemoglobin A1C 1940 Lipid Panel 1940 Medicare Annual Wellness (AWV) 1940 Annual Physical 1943 Pneumococcal Vaccine: 65+ Ye ars (1 of 2 - PCV) 1946 Diabetes: Foot Exam 1950 Diabetes: Retinopathy Screening 1950 DTaP/Tdap/Td Vaccines (1 - Tdap) 1959 Diabetes: Urine Protein Screening 1959 Zoster Vaccines (1 of 2) 1990 Respiratory Syncytial Virus (RSV) or >=60 (1 - 1-dose 60+ series) 2000 Influenza Vaccine (#1) 2023 HIB Vaccines Aged Out No longer eligi ble based on patient's age to complete this topic HPV Vaccines Aged Out No longer eligi ble based on patient's age to complete this topic Hepatitis A Vaccines Aged Out No long er eligible based on patient's age to complete this topic Hepatitis B Vaccines Aged Out No long er eligible based on patient's age to complete this topic IPV Vaccines Aged Out No longer eligi ble based on patient's age to complete this topic Meningococcal Vaccine Aged Out No howie josephine eligible based on patient's age to complete this topic Rotavirus Vaccines Aged Out No longer eligible based on patient's age to complete this topic [facility] [id number] 11:13:52 [facility] [id number] 17:53:45* [facility] [id number] 17:53:45 [facility] [id number] 17:53:45* Darleen Mccray MD - 01/05/2024 10:00 AM CDT History of Present Illness Memory Loss Insomnia Problems with not sleeping, up and down most of the night. Taking Remeron but not really helping the sleep problems. Memory is poor, has 24-hour supervision. Stop the Remeron. Start trazodone at night for the sleep instead. Continue Namenda for the memory Allergies as of 01/05/2024 - Reviewed 01/05/2024 Allergen Reaction Noted Nsaids 01/05/2024 Sulfa antibiotics 01/05/2024 has a current medication list which includes the following prescription(s): aspirin ec, baclofen, duloxetine, lisinopril, memantine, and trazodone. Vitals:01/05/24 1038 BP: 130/89 Pulse: 80 Resp: 16 Temp: 36.5 ?C (97.7 ?F) Neurological Exam Mental Status Awake and alert. Speech is normal. Repeats herself, tangential. Cranial NervesCN II: Visual acuity is normal. CN III, IV, : Extraocular movements intact bilaterally. Pupils equal round and reactive to light bilaterally. CN VII: Full and symmetric facial movement. CN IX, X: Palate elevates symmetrically CN XI: Shoulder shrug strength is normal. CN XII: Tongue midline without atrophy or fasciculations. MotorStrength is 5/5 throughout all four extremities. SensoryTemperature abnormality: Decreased distally. Vibration abnormality: Decreased distally. ReflexesDeep tendon reflexes: Suppressed but symmetric. GaitCasual gait is normal including stance, stride, and arm swing. No results found for this or any previous visit. 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 Add trazodone 50 mg at night. Risks, benefits, side effects reviewed with patient. Stop Remeron, continue Namenda I am the continuing focal point for needed health care services and medicalcare services that are part of ongoing care related to this patient's single, serious condition or complex condition. [facility] [id number] 17:53:45Upcoming Encounters Health Maintenance Due Date Last Done Comments Bone Density Scan 1940 Diabetes: Hemoglobin A1C 1940 Lipid Panel 1940 Medicare Annual Wellness (AWV) 1940 Pneumococcal Vaccine: 65+ Ye ars (1 of 2 - PCV) 1946 Diabetes: Foot Exam 1950 Diabetes: Retinopathy Screening 1950 DTaP/Tdap/Td Vaccines (1 - Tdap) 1959 Diabetes: Urine Protein Screening 1959 Zoster Vaccines (1 of 2) 1990 Respiratory Syncytial Virus (RSV) or >=60 (1 - 1-dose 60+ series) 2000 Influenza Vaccine (#1) 2023 HIB Vaccines Aged Out No longer eligi ble based on patient's age to complete this topic HPV Vaccines Aged Out No longer eligi ble based on patient's age to complete this topic Hepatitis A Vaccines Aged Out No long er eligible based on patient's age to complete this topic Hepatitis B Vaccines Aged Out No long er eligible based on patient's age to complete this topic IPV Vaccines Aged Out No longer eligi ble based on patient's age to complete this topic Meningococcal Vaccine Aged Out No howie josephine eligible based on patient's age to complete this topic Rotavirus Vaccines Aged Out No longer eligible based on patient's age to complete this topic [facility] [id number] 17:53:45 Diagnosis Moderate late onset Alzheime r's dementia with other behavioral disturbance (HCC) - Primary Insomnia due to medical condition Organic insomnia, unspecified Mervin [id number] 17:53:45 [facility] [id number] 16:23:53 [facility] [id number] 16:23:53Upcoming Encounters Health Maintenance Due Date Last Done Comments Bone Density Scan 1940 Diabetes: Hemoglobin A1C 1940 Lipid Panel 1940 Medicare Annual Wellness (AWV) 1940 Pneumococcal Vaccine: 65+ Ye ars (1 of 2 - PCV) 1946 Diabetes: Foot Exam 1950 Diabetes: Retinopathy Screening 1950 DTaP/Tdap/Td Vaccines (1 - Tdap) 1959 Diabetes: Urine Protein Screening 1959 Zoster Vaccines (1 of 2) 1990 Respiratory Syncytial Virus (RSV) or >=60 (1 - 1-dose 60+ series) 2000 Influenza Vaccine (#1) 2023 HIB Vaccines Aged Out No longer eligi ble based on patient's age to complete this topic HPV Vaccines Aged Out No longer eligi ble based on patient's age to complete this topic Hepatitis A Vaccines Aged Out No long er eligible based on patient's age to complete this topic Hepatitis B Vaccines Aged Out No long er eligible based on patient's age to complete this topic IPV Vaccines Aged Out No longer eligi ble based on patient's age to complete this topic Meningococcal Vaccine Aged Out No howie josephine eligible based on patient's age to complete this topic Rotavirus Vaccines Aged Out No longer eligible based on patient's age to complete this topic [facility] [id number] 16:23:53 [facility] [id number] 08:05:55 Patient son called stating he called last week telling us that her sleeping medication was not helping anymore and would like the dose adjusted for her, and she is needing a refill on the mirtazapine. She has an appointment scheduled for tomorrow. [facility] [id number] 17:58:26 [id number] 16:27:05 Patient's vinjndoc-pc-qeu, Katey Caro, called stating that the Patient has been staying up during the night and cannot sleep. Her caregiver told her that this has been occurring for several weeks. She is asking if you could change the dosing of her sleeping pill or if there is another medication you can prescribe her? [facility]
--- NOTE | 2024-06-27 12:14 | RAD REPORT ---
EXAM: CT brain without contrast HISTORY: fall COMPARISON: None TECHNIQUE: Multiple contiguous axial images were obtained and a CT of the brain without contrast. Sag ittal and coronal reformats were performed. One or more of the following dose reduction techniques were used: Automated exposure control, adjust ment of the mA and/or kV according to patient size, and/or iterative reconstruction. FINDINGS: No evidence of hydrocephalus, intracranial hemorrhage, or extra-axial fluid collection. Moderate brain atrophy with moderate periventricular and deep white matter chronic microvascular isc hemic changes present. No evidence of midline shift or areas of brain edema. The calvarium is intact. The visualized paranasal sinuses and mastoid air cells are essentially clear . IMPRESSION: No evidence of acute intracranial abnormality. EXAM: CT of the cervical spine without contrast HISTORY: Neck pain, injury fall TECHNIQUE: Multiple contiguous axial images were obtained in a CT of the cervical spine without contr ast. Sagittal and coronal reformats were performed. FINDINGS: The vertebral bodies demonstrate normal height and alignment. No evidence of acute fracture or subluxation.. Moderate multilevel lower cervical degenerative changes. No prevertebral soft tissue swelling is seen. The posterior facets are well aligned. Normal alignment of the skull base with the cervical spine is seen. Numerous nodules seen in the upper lung macario incompletely assessed. IMPRESSION: No evidence of acute osseous abnormality of the cervical spine. Pulmonary nodules in the lung apices, advise follow-up nonemergent pulmonology consultation and/or PE T/CT.
--- NOTE | 2024-06-27 13:02 | RAD REPORT ---
EXAMINATION: XR LEFT SHOULDER CLINICAL INDICATION: Female, 84 years old. PAIN TECHNIQUE: Internal and external AP view radiograph of the left shoulder were obtained. COMPARISON: 03/25/2024. FINDINGS: Other acute stable alignment of displaced surgical neck left humeral fracture. Signs of interval part ial healing with osseous lucency and periosteal reaction. No other acute fracture or dislocation. Normal alignment. No evidence of arthropathy or other focal bone lesion. Soft tissues are unremarkabl e. IMPRESSION: Stable alignment of surgical displacement humeral fracture with signs of partial interval healing.
--- NOTE | 2024-06-27 13:29 | EDPHYS ---
Physician Documentation [facility] Name: Jody Morrison Age: 84 yrs Sex: Female : 1940 Arrival Date: 06/27/2024 Time: 10:59 Bed IW1 Private MD: ED Physician Joey Mcwilliams HPI: 06/27 16:02 This 84 yrs old Female presents to ER via Ambulatory with complaints of Fall Injury. ms3 16:02 84-year-old female with past medical history of fibromyalgia, diabetes, herniated disc, ms3 hypertension, CVA, dementia presents to the emergency department for fall that occurred on Tuesday. Patient's son notes patient has not been able to move her arm. He notes his mother fell 1 month ago and fractured her arm. Patient is currently seeing Dr. Ibanez for care. Patient's son states his mother did not have loss of consciousness when falling as she fell while getting off the toilet with her caregiver.. Historical: - Allergies: 11:42 NSAIDS; iw 11:42 Aspirin; iw 11:42 PHENOTHIAZINES; iw 11:42 Sulfa (Sulfonamide Antibiotics); iw - PMHx: 11:42 Fibromyalgia; diabetes mellitus; Herniated disc; Hypertensive disorder; CVA; iw - Immunization history:: Adult Immunizations. - Infectious Disease History:: Denies. - Social history:: Smoking status: . ROS: 16:02 Unable to obtain ROS due to baseline dementia, ms3 Exam: 16:02 Constitutional: This is a well developed, well nourished patient who is awake, alert, ms3 and in no acute distress. Cardiovascular: Regular rate and rhythm with a normal S1 and S2. No gallops, murmurs, or rubs. Normal PMI, no JVD. No pulse deficits. Respiratory: Lungs have equal breath sounds bilaterally, clear to auscultation and percussion. No rales, rhonchi or wheezes noted. No increased work of breathing, no retractions or nasal flaring. Abdomen/GI: Soft, non-tender, with normal bowel sounds. No distension or tympany. No guarding or rebound. No evidence of tenderness throughout. Skin: Warm, dry with normal turgor. Normal color with no rashes, no lesions, and no evidence of cellulitis. 16:02 Musculoskeletal/extremity: Extremities: noted in the left shoulder: decreased ROM, pain, tenderness, Vital Signs: 11:43 BP 90 / 68; Pulse 102; Resp 16; Temp 97.5; Pulse Ox 95% on R/A; Weight 54.88 kg; iw MDM: 11:45 Medical Screening Exam initiated ms3 16:02 Differential diagnosis: closed head injury, contusion, fracture, sprain, strain. Data ms3 reviewed: vital signs, nurses notes, radiologic studies, and as a result, I will discharge patient. Historians other than the Patient: Daughter/Son: Patient's son. Counseling: I had a detailed discussion with the patient and/or guardian regarding the historical points, exam findings, and any diagnostic results supporting the discharge/admit diagnosis, radiology results, the need for outpatient follow up, to return to the emergency department if symptoms worsen or persist or if there are any questions or concerns that arise at home. Special discussion: I discussed with the patient/guardian in detail that at this point there is no indication for admission to the hospital. It is understood, however, that if the symptoms persist or worsen the patient needs to return immediately for re-evaluation. ED course: Discussed CT scan showing no acute abnormalities with patient's son. Left shoulder x-ray showing healing previous fracture. Patient to continue following up with Dr. Ibanez. Patient's son understands and agrees with plan. All questions were answered. Return precautions discussed include worsening symptoms, or any other concerns. 04 11:46 Order name: Shoulder Left (2 View) XRAY; Complete Time: 13:14 ms3 04 11:46 Order name: CT Head C Spine; Complete Time: 13:14 ms3 Administered Medications: No medications were administered Disposition: 16:05 Chart complete. ms3 Disposition Summary: 06/27/24 13:28 Discharge Ordered Notes: Location: Home ms3 Condition: Stable ms3 Diagnosis - Pain in left shoulder ms3 - left shoulder fracture ms3 - Fall on same level, unspecified ms3 Followup: ms3 - With: Fernandez Ibanez MD - When: 2 - 3 days - Reason: Recheck today's complaints Discharge Instructions: - Discharge Summary Sheet ms3 - Fall Prevention in the Home, Adult ms3 - Musculoskeletal Pain ms3 - Shoulder Pain, Tfgz-jr-Bdly ms3 Forms: - Medication Reconciliation Form ms3 - Antibiotic Education ms3 - Prescription Opioid Use ms3 - Patient Portal Instructions ms3 - Leadership Thank You Letter ms3 Signatures: Dispatcher [employer] Kristel Cruz, RN Graciela Jack RN RN ll1 Joey Mcwilliams, DO ms3
--- NOTE | 2024-06-27 13:29 | ER ---
Nurse's Notes [facility] Name: Jody Morrison Age: 84 yrs Sex: Female : 1940 Arrival Date: 06/27/2024 Time: 10:59 Bed IW1 Private MD: Diagnosis: Pain in left shoulder;left shoulder fracture;Fall on same level, unspecified Presentation: 06/27 11:39 Chief complaint: Patient states: has a previously broken left shoulder, had a fall on iw Tuesday and re injured it , cannot lift her left shoulder. 11:39 Acuity: BAUDILIO 4 iw 13:39 Coronavirus screen: Client denies travel out of the [place] in the last 14 days. At this ll1 time, the client does not indicate any symptoms associated with coronavirus-19. Ebola Screen: Patient denies travel to an Ebola-affected area in the 21 days before illness onset. Initial Sepsis Screen: Does the patient meet any 2 criteria? No. Patient's initial sepsis screen is negative. Does the patient have a suspected source of infection? No. Patient's initial sepsis screen is negative. Risk Assessment: Do you want to hurt yourself or someone else? Patient reports no desire to harm self or others. Onset of symptoms was May 27, 2024. 13:39 Method Of Arrival: Ambulatory ll1 Triage Assessment: 11:43 General: Appears uncomfortable, Behavior is calm, cooperative, appropriate for age. ll1 Pain: Complains of pain in L shoulder Quality of pain is described as aching. Musculoskeletal: Reports pain in L shoulder. Historical: - Allergies: 11:42 NSAIDS; iw 11:42 Aspirin; iw 11:42 PHENOTHIAZINES; iw 11:42 Sulfa (Sulfonamide Antibiotics); iw - PMHx: 11:42 Fibromyalgia; diabetes mellitus; Herniated disc; Hypertensive disorder; CVA; iw - Immunization history:: Adult Immunizations. - Infectious Disease History:: Denies. - Social history:: Smoking status: . Screenin:38 [facility] ED Fall Risk Assessment (Adult) History of falling in the last 3 months, ll1 including since admission Yes- single mechanical fall (1 pt) Confusion or Disorientation No (0 pts) Intoxicated or Sedated No (0 pts) Impaired Gait No (0 pts) Mobility Assist Device Used No (0 pt) Altered Elimination No (0 pt) Score/Fall Risk Level 0 - 2 = Low Risk Maintained a safe environment, Hourly rounding (assess needs \T\ fall precautionary measures) done. Abuse screen: Denies threats or abuse. Nutritional screening: No deficits noted. Tuberculosis screening: No symptoms or risk factors identified. Assessment: 13:40 Reassessment: No changes from previously documented assessment. Patient and/or family ll1 updated on plan of care and expected duration. Pain level reassessed. Patient is alert, oriented x 3, equal unlabored respirations, skin warm/dry/pink. Vital Signs: 11:43 BP 90 / 68; Pulse 102; Resp 16; Temp 97.5; Pulse Ox 95% on R/A; Weight 54.88 kg; iw ED Course: 11:02 Patient arrived in ED. mr 11:09 Joey Mcwilliams DO is Attending Physician. ms3 11:42 Triage completed. iw 11:43 Arm band placed on. iw 12:00 CT Head C Spine In Process Unspecified. EDMS 12:40 Shoulder Left (2 View) XRAY In Process Unspecified. EDMS 13:28 Fernandez Ibanez MD is Referral Physician. ms3 13:39 No provider procedures requiring assistance completed. Patient did not have IV access ll1 during this emergency room visit. 13:40 Patient has correct armband on for positive identification. Provided Education on: n/a. ll1 Administered Medications: No medications were administered Medication: 13:40 VIS not applicable for this client. ll1 Outcome: 13:28 Discharge ordered by . ms3 13:39 Discharged to home ambulatory, ll1 13:39 Condition: stable 13:39 Discharge instructions given to patient, Instructed on discharge instructions, follow up and referral plans. Demonstrated understanding of instructions, follow-up care, left without signing or receiving discharge instructions. 13:41 Patient left the ED. ll1 Signatures: Dispatcher [employer] EDMS Marcy Ramirez, Reg Reg mr Kristel Miller RN RN iw Graciela Menchaca RN RN ll1 Joey Mcwilliams DO DO ms3
[2024-06-27 13:56] VITALS: BP 90/68; TEMP 97.5; O2SAT 95
== END 2024-06-27 13:41 | disposition home or self-care (01) ==
LOC: ER 10:59
DX: S42.92XB Fracture of left shoulder girdle, part unspecified, initial encounter for open fracture (principal); W18.30XA Fall on same level, unspecified, initial encounter; Y92.012 Bathroom of single-family (private) house as the place of occurrence of the external cause; E11.9 Type 2 diabetes mellitus without complications; I10 Essential (primary) hypertension; M79.7 Fibromyalgia; Z86.73 Personal history of transient ischemic attack (TIA), and cerebral infarction without residual deficits; Z88.2 Allergy status to sulfonamides; Z88.8 Allergy status to other drugs, medicaments and biological substances
CPT/HCPCS: 70450; 72125; 99282